=== PATIENT | female | born 1950 | race American Indian/Alaskan Native ===

== ENCOUNTER 2018-05-26 08:08 | Inpatient (IN) | payer MEDICARE, OTHER, BC | END 2018-06-04 11:43 | disposition short-term general hospital (02) | LOC: CATH 08:08 → 2RNO 05-30 13:44 → ICU 05-30 13:44 → CATH 05-27 09:05 → ICU 12:36 → 2RNO 05-27 09:05 → ICU 05-27 09:05 → 2RNO 05-30 13:44 | DX: I25.10 Atherosclerotic heart disease of native coronary artery without angina pectoris (principal); I13.2 Hypertensive heart and chronic kidney disease with heart failure and with stage 5 chronic kidney disease, or end stage renal disease; N18.6 End stage renal disease; I50.9 Heart failure, unspecified; I73.9 Peripheral vascular disease, unspecified; Z95.1 Presence of aortocoronary bypass graft ==

== ENCOUNTER 2018-06-10 16:14 | Inpatient (IN) | payer MEDICARE, BC ==
--- NOTE | 2018-06-10 17:03 | ED PDOC ---
Arrival/HPI - General Chief Complaint: Lower Extremity Problem/Injury Time Seen by Provider: 06/10/18 16:47 Historian: Patient - History of Present Illness Narrative History of Present Illness (Text): 06/10/18 17:02 67 year old female whose past medical history includes PVD on ASA/Plavix with recent right transmetatarsal amputation for gangrene/non-healing ulcer (April 2018), ESRD on HD MWF, hypertension, diabetes, dyslipidemia who presented to the emergency department from [facility] for evaluation of right toe a mputation done 2 weeks ago. Patient reports she was recently discharged and states she needs to have a vascular surgery performed by Dr. Wood due to "no blood flow on the right leg". Patient reported she became short of breath en route to the ER, but reports resolution of her dyspnea. Patient denies any fever, chills, chest pain, vomiting, diarrhea, urinary symptoms, back pain, neck pain, headache, dizziness, or any other complaints. Symptom Onset: Gradual Symptom Course: Unchanged Activities at Onset: Light Context: Home ([facility]) Past Medical History - Provider Review Nursing Documentation Reviewed: Yes - Infectious Disease Hx of Infectious Diseases: None - Cardiac Hx Hypertension: Yes - Pulmonary Hx Respiratory Disorders: No - Neurological Hx Neurological Disorder: No - HEENT Hx HEENT Disorder: Yes Hx Cataracts: Yes Other/Comment: Diabetic retinopathy with multiple procedures (Dr Bradley) - Renal Date of Last Dialysis Treatment: 05/26/18 - Endocrine/Metabolic Hx Diabetes Mellitus Type 2: Yes - Hematological/Oncological Hx Anemia: Yes - Integumentary Hx Dermatological Disorder: No - Musculoskeletal/Rheumatological Hx Falls: No - Gastrointestinal Hx Gall Bladder Disease: Yes - Genitourinary/Gynecological Hx Genitourinary Disorders: No - Psychiatric Hx Substance Use: No - Surgical History Hx Appendectomy: Yes Hx Cholecystectomy: Yes Hx Tonsillectomy: Yes - Anesthesia Hx Anesthesia: Yes Hx Anesthesia Reactions: No Hx Malignant Hyperthermia: No - Suicidal Assessment Feels Threatened In Home Enviroment: No Family/Social History - Physician Review Nursing Documentation Reviewed: Yes Family/Social History: No Known Family HX Smoking Status: Former Smoker Hx Alcohol Use: No Hx Substance Use: No Allergies/Home Meds Allergies/Adverse Reactions: Allergies No Known Allergies Allergy (Verified 05/26/18 17:31) Home Medications: Home Meds Medication Instructions Recorded Confirmed Cinacalcet [Sensipar] 30 mg PO TID 12/10/17 06/11/18 Insulin NPH Hum/Reg Insulin Hm 26 unit SQ BID #0 12/10/17 06/11/18 [Humulin 70/30 Kwikpen] Metoclopramide [Reglan] 10 mg PO Q6H PRN 12/10/17 06/11/18 Sevelamer Carbonate [Renvela] 0.8 gm PO TID 12/10/17 06/11/18 Acetaminophen [Tylenol 325mg tab] 650 mg PO Q4H PRN 05/20/18 06/11/18 Acetaminophen [Tylenol 325mg tab] 650 mg PO Q4H PRN 05/20/18 06/11/18 Amino Acid/Protein/Vit C/Zinc 30 ml PO TID 05/20/18 06/11/18 [Prosource Terry Protein Liquid] Benzocaine/Menthol [Cepacol Sore 1 each PO Q4H PRN 05/20/18 05/26/18 Throat Lozenge] Cefepime 1gm in NS 100ml [Maxipime 1 gm IVPB DAILY 05/20/18 05/26/18 1gm] Insulin Aspart, Recombinant See Protocol SQ ACHS 05/20/18 06/11/18 [Novolog] Linezolid [Zyvox] 600 mg PO Q12H 05/20/18 05/26/18 Ondansetron [Zofran Inj] 4 mg IVP DAILY PRN 05/20/18 06/11/18 Sennosides [Senna] 17.2 mg PO HS 05/20/18 06/11/18 Vitamin B Complex/Vit C/Folic 1 tab PO DAILY 05/20/18 06/11/18 [Nephro-Keila] hydrALAZINE [hydralazine 25 mg PO TID 05/20/18 06/11/18 Hydrochloride] oxyCODONE [oxyCONTIN] 10 mg PO Q12 05/26/18 06/11/18 Review of Systems - Physician Review All systems were reviewed & negative as marked: Yes - Review of Systems Constitutional: absent: Fevers, Other (chills) Respiratory: SOB Cardiovascular: absent: Chest Pain Gastrointestinal: absent: Diarrhea, Nausea, Vomiting Genitourinary Female: absent: Dysuria, Frequency, Hematuria Musculoskeletal: absent: Back Pain, Neck Pain Skin: Other (Evaluation of right LE amputated toes) Neurological: absent: Headache, Dizziness Physical Exam Vital Signs Reviewed: Yes Temperature: Afebrile Blood Pressure: Normal Pulse: Regular Respiratory Rate: Normal Appearance: Positive for: Well-Appearing, Non-Toxic, Comfortable Pain Distress: None Mental Status: Positive for: Alert and Oriented X 3 - Systems Exam Head: Present: Atraumatic, Normocephalic Respiratory/Chest: Present: Clear to Auscultation, Good Air Exchange, Other (clear breath sounds ). No: Respiratory Distress, Accessory Muscle Use Cardiovascular: Present: Regular Rate and Rhythm Abdomen: Present: Tenderness (generalized abdominal tenderness), Other (Palpable cath extending to the left side of groin) Upper Extremity: Present: Normal Inspection. No: Cyanosis, Edema Lower Extremity: Present: Other (amputated toes on the right LE. Diabetic ulcer to left heel. ). No: Edema, NORMAL PULSES (Non-palpable pulse ot right LE. Weak palpable pulse to left LE. ) Neurological: Present: GCS=15, Speech Normal Skin: Present: Warm, Dry, Normal Color. No: Rashes Psychiatric: Present: Alert, Oriented x 3 Medical Decision Making ED Course and Treatment: 06/10/18 17:02 Impression: 67 year old female presents for evaluation of right toe amputation Differential Diagnosis included but are not limited to: --Arterial Occlusion(secondary to PVD) --Osteomyelitis Plan: -- Labs -- Chest X-ray -- Duplex Bilat LE US -- Reassess and disposition Prior Visits: Notes and results from previous visits were reviewed. Progress Notes: 06/10/18 18:15 Labs reveal no leukocytosis, but shows anemia and elevated creatinine within baseline values. CXR shows no evidence of consolidation or infiltrates. CHARLES sl ightly abnormal in the RLE. Discussed case with Dr. Cox(PCP) who accepts case and requests Drs. Hickey(podiatry) & Neris(infectious disease) as consults. - Lab Interpretations Narrative Lab Interpretation (Text): 06/10/18 16:35 06/10/18 16:35 Lab Results 06/10/18 16:35: Sodium 136, Potassium 4.7, Chloride 96 L, Carbon Dioxide 29, Anion Gap 16, BUN 22 H, Creatinine 4.9 H, Est GFR ( Amer) 11, Est GFR (Non-Af Amer) 9, Random Glucose 113 H, Calcium 9.3, Magnesium 2.1, Total Bilirubin 0.5, AST 41 H D, ALT 17, Alkaline Phosphatase 113, Troponin I 0.51 H*, NT-Pro-B Natriuret Pep 30552 H, Total Protein 7.5, Albumin 3.6, Globulin 3.9, Albumin/Globulin Ratio 0.9 L 06/10/18 16:35: WBC 7.8, RBC 3.66, Hgb 9.2 L, Hct 29.7 L, MCV 81.1, MCH 25.1, MCHC 31.0, RDW 20.3 H, Plt Count 382, MPV 9.3, Neut % (Auto) 76.2 H, Lymph % (Auto) 14.8 L, [place] % (Auto) 6.1 H, Eos % (Auto) 2.6, Baso % (Auto) 0.3, Lymph # (Auto) 1.2, [place] # (Auto) 0.5, Eos # (Auto) 0.2, Baso # (Auto) 0.02, Absolute Neuts (auto) 5.98 I have reviewed the lab results: Yes - RAD Interpretation Narrative RAD Interpretations (Text): Chest X-ray Dictator : Luisana Dawson MD Report Date : 06/10/2018 17:37:59 IMPRESSION: No active pulmonary disease. [employer] Service Manager: Radiologist - Scribe Statement The provider has reviewed the documentation as recorded by the Kelsieibron Hendrickson Provider Scribe Attestation: All medical record entries made by the Kelsieibron were at my direction and personally dictated by me. I have reviewed the chart and agree that the record accurately reflects my personal performance of the history, physical exam, medical decision making, and the department course for this patient. I have also personally directed, reviewed, and agree with the discharge instructions and disposition. Disposition/Present on Arrival - Present on Arrival Any Indicators Present on Arrival: Yes History of DVT/PE: No History of Uncontrolled Diabetes: Yes Urinary Catheter: No History Surgical Site Infection Following: Orthopedic Procedures - Disposition Have Diagnosis and Disposition been Completed?: Yes Diagnosis: Foot pain, right Disposition: HOSPITALIZED Disposition Time: 18:36 Patient Plan: Admission Patient Problems: Current Active Problems Problem Status Onset Ischemic foot Acute Condition: GUARDED
--- NOTE | 2018-06-10 17:41 | RAD ---
Date of service: 06/10/2018 HISTORY: sob COMPARISON: 06/02/2018. FINDINGS: Right-sided central venous catheter graft remains at the cavoatrial junction. There is a left axillary endovascular stent graft. LUNGS: The lungs are well inflated and clear. There is multifocal linear atelectasis in the lungs. There is mild pulmonary venous congestion. No focal consolidation. PLEURA: No pleural effusions or pneumothorax. CARDIOVASCULAR: There is mild cardiomegaly. No aortic atherosclerotic calcifications present. OSSEOUS STRUCTURES: Within normal limits for the patient's age. VISUALIZED UPPER ABDOMEN: Normal. OTHER FINDINGS: None. IMPRESSION: No active pulmonary disease.
[2018-06-10 17:43] LABS: BASO # 0.02 K/mm3 (0.0-2.0); BASO % 0.3 % (0.0-3.0); EOS # 0.2 (0.0-0.7); EOS % 2.6 % (1.5-5.0); HEMOGLOBIN 9.2 g/dL (12.0-16.0); LYMPH # 1.2 (1.2-3.4); LYMPH % 14.8 % (22.0-35.0); MEAN CELL VOLUME 81.1 fl (80.0-105.0); MEAN CORPUSCULAR HEMOGLOBIN 25.1 pg (25.0-35.0); MEAN PLATELET VOLUME 9.3 fl (7.0-11.0); MONO # 0.5 (0.1-0.6); MONO % 6.1 % (1.0-6.0); RBC 3.66 10^6/uL (3.5-6.1); RED CELL DISTRIBUTION WIDTH 20.3 % (11.5-14.5); WHITE BLOOD COUNT 7.8 10^3/uL (4.5-11.0)
[2018-06-10 18:05] LABS: ALB/GLOB RATIO 0.9 (1.1-1.8); ALBUMIN 3.6 g/dL (3.0-4.8); CALCIUM 9.3 mg/dL (8.4-10.5)
[2018-06-10] MEDS ORDERED: Vancomycin 1gm in NS 250ml 1 GM/250 ML BAG IVPB STA (18:19)
[2018-06-10 18:30] LABS: TROPONIN I 0.51 ng/mL
--- NOTE | 2018-06-10 19:33 | US ---
PROCEDURE: Lower extremity CHARLES exam HISTORY: Peripheral vascular disease with pain. Recent right toe amputation PHYSICIAN(S): Kingsley Wood MD. FINDINGS: The right resting CHARLES is mildly abnormal, 0.83. The left resting CHARLES is slightly elevated and abnormal, 1.32 The brachial systolic pressures are symmetric. The low thigh PVR waveforms are pulsatile and mildly blunted. Their clinical significance is uncertain The calf PVR waveforms augment normally. No significant gradients are noted across the thighs. The right ankle and metatarsal waveforms are pulsatile and relatively normal. The left ankle and metatarsal waveforms are pulsatile but slightly decreased in amplitude compared to the right IMPRESSION: 1. Mildly abnormal right CHARLES at rest 2. The PVR waveforms are relatively normal at all levels on the right
--- NOTE | 2018-06-10 23:04 | CP.PCM.PCO ---
<Royer Satcy - Last Filed: 06/10/18 23:02> Addendum Addendum: PGY1 House Doc Paged about no ISS or accuchecks on diabetic patient. Will order for the patient. <Maggi Fajardo - Last Filed: 06/11/18 03:59> Attending/Attestation - Attestation I have personally seen and examined this patient.: No I have fully participated in the care of the patient.: No I have reviewed all pertinent clinical information: No
[2018-06-11 00:34] VITALS: BMI 41.3
--- NOTE | 2018-06-11 08:10 | CP.PCM.CON ---
History of Present Illness - History of Present Illness History of Present Illness: Podiatry Consult Note: Dr. Brian Hickey 67 year old female patient, seen and evaluated s/p 5 weks right TMA (DOS: 05/04/18) with subsequent non-healing ulceration and left heel ulceration. Patient resting comfortably in bed and in NAD. She denies any pain to her lower extremities at this time. She states that she was originally being treated at [facility] with Dr. Hickey, was discharged, and sent to [facility] yesterday from [facility]. Denies nausea/vomiting/fever/shortness of breath/chest pain. PMHx: DM, HTN, ESRD PSHx: Appendectomy, Cholecystectomy, Tonsillectomy ALL: NKDA Review of Systems - Review of Systems Review of Systems: 10 point review of systems negative except whats noted in HPI Past Patient History - Infectious Disease Hx of Infectious Diseases: None - Past Medical History & Family History Past Medical History?: Yes - Past Social History Smoking Status: Never Smoked - CARDIAC Hx Cardiac Disorders: Yes Hx Circulatory Problems: Yes (right lower ext) Hx Hypertension: Yes - PULMONARY Hx Respiratory Disorders: No - NEUROLOGICAL Hx Neurological Disorder: No - HEENT Hx HEENT Problems: No Other/Comment: wears reading glasses - cannot see small objects - RENAL Hx Chronic Kidney Disease: Yes Hx Dialysis: Yes Date of Last Dialysis Treatment: 06/10/18 Hx Kidney Stones: Yes Hx Renal Failure: Yes - ENDOCRINE/METABOLIC Hx Endocrine Disorders: Yes Hx Diabetes Mellitus Type 1: Yes - HEMATOLOGICAL/ONCOLOGICAL Hx Blood Disorders: No - INTEGUMENTARY Hx Dermatological Problems: No - MUSCULOSKELETAL/RHEUMATOLOGICAL Hx Arthritis: Yes Hx Degenerative Joint Disease: Yes Hx Falls: Yes Hx Fractures: Yes Hx Unsteady Gait: Yes - GASTROINTESTINAL Hx Gastrointestinal Disorders: No - GENITOURINARY/GYNECOLOGICAL Hx Genitourinary Disorders: No - PSYCHIATRIC Hx Psychophysiologic Disorder: No Hx Substance Use: No - SURGICAL HISTORY Hx Surgeries: Yes Hx Amputation: Yes Hx Cardiac Catheterization: Yes Hx Coronary Stent: Yes Hx Musculoskeletal Surgery: Yes - ANESTHESIA Hx Anesthesia: Yes Hx Anesthesia Reactions: No Hx Malignant Hyperthermia: No Meds Allergies/Adverse Reactions: Allergies Allergy/AdvReac Type Severity Reaction Status Date / Time No Known Allergies Allergy Verified 05/26/18 17:31 - Medications Medications: Current Medications Insulin Human Lispro (Humalog Low) 0 units SC [facility]; Protocol Physical Exam - Constitutional Appears: Non-toxic, No Acute Distress - Head Exam Head Exam: ATRAUMATIC, NORMOCEPHALIC - Extremities Exam Additional comments: B/L Lower extremity focused exam: Vasc: DP and PT pulses non-palpable B/L. Temperature gradient warm to warm from proximal to distal. Cap refill < 3 sec to all remaining digits. Mild non-pitting edema noted to dorsum of right foot Ortho: R TMA appreciated Neuro: diminished protective sensation B/L, gross sensation intact Derm: Open ulceration at the plantar aspect of the right lateral midfoot; wound base is 60% necrotic, 20% granular and 20% fibrotic. Wound measures approximately 10cm x 8cm x 3cm. Tunneling and undermining appreciated. Positive probe to bone. positive drainage noted, positive malodor. Remaining sutures in place from TMA site with mild dehiscence appreciated. Results - Vital Signs Recent Vital Signs: Last Vital Signs Temp 98.3 F 06/11/18 06:00 Pulse 60 06/11/18 06:00 Resp 16 06/11/18 06:00 BP 137/61 06/11/18 06:00 Pulse Ox 99 06/11/18 06:00 - Labs Result Diagrams: 06/10/18 16:35 06/10/18 16:35 Labs: Laboratory Results - last 24 hr 06/10/18 06/10/18 06/11/18 16:35 16:35 06:11 WBC 7.8 RBC 3.66 Hgb 9.2 L Hct 29.7 L MCV 81.1 MCH 25.1 MCHC 31.0 RDW 20.3 H Plt Count 382 MPV 9.3 Neut % (Auto) 76.2 H Lymph % (Auto) 14.8 L [place] % (Auto) 6.1 H Eos % (Auto) 2.6 Baso % (Auto) 0.3 Lymph # (Auto) 1.2 [place] # (Auto) 0.5 Eos # (Auto) 0.2 Baso # (Auto) 0.02 Absolute Neuts (auto) 5.98 Sodium 136 Potassium 4.7 Chloride 96 L Carbon Dioxide 29 Anion Gap 16 BUN 22 H Creatinine 4.9 H Est GFR ( Amer) 11 Est GFR (Non-Af Amer) 9 POC Glucose (mg/dL) 87 Random Glucose 113 H Calcium 9.3 Magnesium 2.1 Total Bilirubin 0.5 AST 41 H D ALT 17 Alkaline Phosphatase 113 Troponin I 0.51 H* NT-Pro-B Natriuret Pep 72707 H Total Protein 7.5 Albumin 3.6 Globulin 3.9 Albumin/Globulin Ratio 0.9 L Assessment & Plan - Assessment and Plan (Free Text) Assessment: 67 year old female patient s/p 5 weks right TMA (DOS: 05/04/18) with subsequent non-healing ulceration and left heel ulceration. Plan: Patient seen and evaluated with Dr. Brian Hickey Afebrile, absent leukocytosis Foot x-rays taken; pending Blood cx; pending Local wound care; R: Dakins wet to dry, DSD. L: Mepilex Plan for possible wound debridement June 16 pending vascular reccs ID consulted; reccs appreciated Vasc consulted; reccs appreciated Continue to wear multi-podus boots at all times while in bed Will continue to follow Thank you for the consult - Date & Time Date: 06/11/18 Time: 08:09
[2018-06-11] MEDS: Insulin Lispro (humaLOG) LOW Coverage SC SCH ×3 (09:15→21:51)
[2018-06-11] MEDS: Oxycodone/Acetaminophen 5/325 mg Tab PO PRN (09:59)
--- NOTE | 2018-06-11 10:11 | CP.PCM.APN ---
Subjective - Date & Time of Evaluation Date of Evaluation: 06/11/18 Time of Evaluation: 09:00 - Subjective Subjective: Pt seen and examined at bedside. C/O pain to R foot. Denies chest pain or shortness of breath. Objective - Vital Signs/Intake and Output Vital Signs (last 24 hours): Temp Pulse Resp BP Pulse Ox 98.3 F 60 16 137/60 99 06/11/18 06:00 06/11/18 10:02 06/11/18 06:00 06/11/18 10:02 06/11/18 06:00 Intake and Output: 06/11/18 06/11/18 06:59 18:59 Intake Total 120 Balance 120 - Medications Medications: Current Medications Acetaminophen (Tylenol 325mg Tab) 650 mg PO Q4H PRN PRN Reason: Fever >100.4 F Aspirin (Aspirin Chewable) 81 mg PO DAILY [facility] Last Admin: 06/11/18 09:59 Dose: 81 mg Atorvastatin Calcium (Lipitor) 40 mg PO DIN [facility] Cinacalcet (Sensipar) 30 mg PO TID [facility] Last Admin: 06/11/18 10:00 Dose: 30 mg Clopidogrel Bisulfate (Plavix) 75 mg PO DAILY [facility] Last Admin: 06/11/18 10:02 Dose: 75 mg Hydralazine HCl (Apresoline) 25 mg PO TID [facility] Last Admin: 06/11/18 10:02 Dose: 25 mg Insulin Human Lispro (Humalog Low) 0 units SC [facility]; Protocol Last Admin: 06/11/18 09:15 Dose: Not Given Losartan Potassium (Cozaar) 25 mg PO DAILY [facility] Last Admin: 06/11/18 10:00 Dose: 25 mg Metoclopramide HCl (Reglan) 10 mg PO Q6H PRN PRN Reason: Nausea/Vomiting Ondansetron HCl (Zofran Inj) 4 mg IVP DAILY PRN PRN Reason: Nausea/Vomiting Oxycodone HCl (Oxycontin Extended Release Tab) 10 mg PO Q12 [facility] Stop: 06/14/18 10:01 Oxycodone/Acetaminophen (Percocet 5/325 Mg Tab) 1 tab PO Q4H PRN PRN Reason: Pain, moderate (4-7) Stop: 06/14/18 09:30 Last Admin: 06/11/18 09:59 Dose: 1 tab Sodium Hypochlorite (Dakins Solution 0.25%) 0 ml TOP DAILY [facility] - Labs Labs: 06/10/18 16:35 06/10/18 16:35 - Constitutional Appears: No Acute Distress - Respiratory Exam Respiratory Exam: Clear to Ausculation Bilateral, NORMAL BREATHING PATTERN - Cardiovascular Exam Cardiovascular Exam: REGULAR RHYTHM, +S1, +S2 - GI/Abdominal Exam GI & Abdominal Exam: Soft, Normal Bowel Sounds - Rectal Exam Rectal Exam: Deferred - Extremities Exam Additional comments: S/P R TMA, dressing is intact, no bleeding noted. +malodor. Per Podiatry: open ulceration at the plantar aspect of the right lateral midfoot; wound base is 60% necrotic, 20% granular and 20% fibrotic. Wound measures approximately 10cm x 8cm x 3cm. Tunneling and undermining appreciated. Positive probe to bone. positive drainage noted, positive malodor. Remaining sutures in place from TMA site with mild dehiscence appreciated. Assessment and Plan - Assessment and Plan (Free Text) Assessment: Pt is a 67 y.o. female with pmhx of NSTEMI, PVD, ESRD on HD, HTN, DM, S/P R TMA (04/2018) 2/2 gangrene/nonhealing ulcer who presented in ED for evaluation of R toe amputation. Off note, she was admitted recently in [facility] and had a C.Cath which showed 99% osteal cx, 30% mid-RCA, R dominant circulation, and EF of 50-55%. She was then transferred to [facility] for poss. stent placement. While in [facility], pt had C.Cath (05/26/2018) and was found to have a lesion in L main which extends to LAD. Subsequently, she was transferred to [facility] where she had Lmain/LAD/Lcx stent with impella by Dr. Deleon. Impressions Extremity Ultrasound 06/10/18 17:02 IMPRESSION: 1. Mildly abnormal right CHARLES at rest 2. The PVR waveforms are relatively normal at all levels on the right Chest X-Ray 06/10/18 17:04 IMPRESSION: No active pulmonary disease. Plan: D/W Podiatry, planning for wound debridement on Thursday, June 16. [facility] Meds per MAR Pain management Will continue to follow
--- NOTE | 2018-06-11 11:36 | RAD ---
Date of service: 06/10/2018 PROCEDURE: Right Foot Radiographs. HISTORY: h/o amputation r/o osteo COMPARISON: 05/29/2018 FINDINGS: BONES: There has been previous amputation of the midfoot. Surgical hardware is seen in place. The findings are unchanged. There is a large soft tissue ulcer on the lateral aspect adjacent to the cuboid. There is no evidence of acute osteomyelitis. JOINTS: Normal. SOFT TISSUES: As above OTHER FINDINGS: None. IMPRESSION: No acute findings
--- NOTE | 2018-06-11 13:36 | CP.PCM.CON ---
History of Present Illness - History of Present Illness History of Present Illness: Nephrology consult note - Nitin PGY - 2 Reason for consult: HD 67 F with pertinent history of ESRD on HD, HTN, HLD, DM, and Anemia presented to [facility] with a possible foot infection. She is well known to our service for management of HD. Patient states she is having foot pain and back pain. Seems to be confused by the number of doctors walking into her room. Patient otherwise doing well and denies any new acute complaints. Review of Systems: 12 point ROS obtained and negative except as per HPI Pmhx: Anemia, arthiritis, DM, gastritis, gallbladder dz, HTN, HLD, pancreatitis, ESRD on HD Pshx: Cardiac cath All: NKDA Social: Denies any tobacco use, denies any etoh or illicit drug use Home meds: Reviewed, as per MAR Family Hx; Non-cntributory PMD: Cox Past Patient History - Infectious Disease Hx of Infectious Diseases: None - Past Medical History & Family History Past Medical History?: Yes - Past Social History Smoking Status: Never Smoked - CARDIAC Hx Cardiac Disorders: Yes Hx Circulatory Problems: Yes (right lower ext) Hx Hypertension: Yes - PULMONARY Hx Respiratory Disorders: No - NEUROLOGICAL Hx Neurological Disorder: No - HEENT Hx HEENT Problems: No Other/Comment: wears reading glasses - cannot see small objects - RENAL Hx Chronic Kidney Disease: Yes Hx Dialysis: Yes Date of Last Dialysis Treatment: 06/10/18 Hx Kidney Stones: Yes Hx Renal Failure: Yes - ENDOCRINE/METABOLIC Hx Endocrine Disorders: Yes Hx Diabetes Mellitus Type 1: Yes - HEMATOLOGICAL/ONCOLOGICAL Hx Blood Disorders: No - INTEGUMENTARY Hx Dermatological Problems: No - MUSCULOSKELETAL/RHEUMATOLOGICAL Hx Arthritis: Yes Hx Degenerative Joint Disease: Yes Hx Falls: Yes Hx Fractures: Yes Hx Unsteady Gait: Yes - GASTROINTESTINAL Hx Gastrointestinal Disorders: No - GENITOURINARY/GYNECOLOGICAL Hx Genitourinary Disorders: No - PSYCHIATRIC Hx Psychophysiologic Disorder: No Hx Substance Use: No - SURGICAL HISTORY Hx Surgeries: Yes Hx Amputation: Yes Hx Cardiac Catheterization: Yes Hx Coronary Stent: Yes Hx Musculoskeletal Surgery: Yes - ANESTHESIA Hx Anesthesia: Yes Hx Anesthesia Reactions: No Hx Malignant Hyperthermia: No Meds Allergies/Adverse Reactions: Allergies Allergy/AdvReac Type Severity Reaction Status Date / Time No Known Allergies Allergy Verified 05/26/18 17:31 - Medications Medications: Current Medications Acetaminophen (Tylenol 325mg Tab) 650 mg PO Q4H PRN PRN Reason: Fever >100.4 F Aspirin (Aspirin Chewable) 81 mg PO DAILY [facility] Last Admin: 06/11/18 09:59 Dose: 81 mg Atorvastatin Calcium (Lipitor) 40 mg PO DIN [facility] Cinacalcet (Sensipar) 30 mg PO TID [facility] Last Admin: 06/11/18 10:00 Dose: 30 mg Clopidogrel Bisulfate (Plavix) 75 mg PO DAILY [facility] Last Admin: 06/11/18 10:02 Dose: 75 mg Hydralazine HCl (Apresoline) 25 mg PO TID [facility] Last Admin: 06/11/18 10:02 Dose: 25 mg Insulin Human Lispro (Humalog Low) 0 units SC [facility]; Protocol Last Admin: 06/11/18 12:48 Dose: Not Given Losartan Potassium (Cozaar) 25 mg PO DAILY [facility] Last Admin: 06/11/18 10:00 Dose: 25 mg Metoclopramide HCl (Reglan) 5 mg PO Q6H PRN PRN Reason: Nausea/Vomiting Metoprolol Tartrate (Lopressor) 25 mg PO BID [facility] Last Admin: 06/11/18 12:53 Dose: 25 mg Ondansetron HCl (Zofran Inj) 4 mg IVP DAILY PRN PRN Reason: Nausea/Vomiting Oxycodone HCl (Oxycontin Extended Release Tab) 10 mg PO Q12 [facility] Stop: 06/14/18 10:01 Oxycodone/Acetaminophen (Percocet 5/325 Mg Tab) 1 tab PO Q4H PRN PRN Reason: Pain, moderate (4-7) Stop: 06/14/18 09:30 Last Admin: 06/11/18 09:59 Dose: 1 tab Sodium Hypochlorite (Dakins Solution 0.25%) 0 ml TOP DAILY [facility] Physical Exam - Constitutional Appears: Well - Head Exam Head Exam: ATRAUMATIC, NORMAL INSPECTION, NORMOCEPHALIC - Eye Exam Eye Exam: EOMI, Normal appearance, PERRL Pupil Exam: NORMAL ACCOMODATION, PERRL - ENT Exam ENT Exam: Mucous Membranes Moist, Normal Exam - Neck Exam Neck exam: Positive for: Normal Inspection - Respiratory Exam Respiratory Exam: Clear to Auscultation Bilateral, NORMAL BREATHING PATTERN - Cardiovascular Exam Cardiovascular Exam: REGULAR RHYTHM - GI/Abdominal Exam GI & Abdominal Exam: Normal Bowel Sounds, Soft. absent: Tenderness - Extremities Exam Extremities exam: Positive for: normal inspection - Back Exam Back exam: NORMAL INSPECTION - Neurological Exam Neurological exam: Alert, CN II-XII Intact, Normal Gait, Oriented x3, Reflexes Normal - Psychiatric Exam Psychiatric exam: Normal Affect, Normal Mood - Skin Skin Exam: Dry, Intact, Normal Color, Warm Results - Vital Signs Recent Vital Signs: Last Vital Signs Temp 98.3 F 06/11/18 06:00 Pulse 72 06/11/18 12:53 Resp 16 06/11/18 06:00 BP 137/61 06/11/18 12:53 Pulse Ox 99 06/11/18 06:00 - Labs Result Diagrams: 06/10/18 16:35 06/10/18 16:35 Labs: Laboratory Results - last 24 hr 06/10/18 06/10/18 06/11/18 16:35 16:35 06:11 WBC 7.8 RBC 3.66 Hgb 9.2 L Hct 29.7 L MCV 81.1 MCH 25.1 MCHC 31.0 RDW 20.3 H Plt Count 382 MPV 9.3 Neut % (Auto) 76.2 H Lymph % (Auto) 14.8 L Teller % (Auto) 6.1 H Eos % (Auto) 2.6 Baso % (Auto) 0.3 Lymph # (Auto) 1.2 Teller # (Auto) 0.5 Eos # (Auto) 0.2 Baso # (Auto) 0.02 Absolute Neuts (auto) 5.98 Sodium 136 Potassium 4.7 Chloride 96 L Carbon Dioxide 29 Anion Gap 16 BUN 22 H Creatinine 4.9 H Est GFR ( Amer) 11 Est GFR (Non-Af Amer) 9 POC Glucose (mg/dL) 87 Random Glucose 113 H Calcium 9.3 Magnesium 2.1 Total Bilirubin 0.5 AST 41 H D ALT 17 Alkaline Phosphatase 113 Troponin I 0.51 H* NT-Pro-B Natriuret Pep 82122 H Total Protein 7.5 Albumin 3.6 Globulin 3.9 Albumin/Globulin Ratio 0.9 L 06/11/18 11:20 WBC RBC Hgb Hct MCV MCH MCHC RDW Plt Count MPV Neut % (Auto) Lymph % (Auto) Teller % (Auto) Eos % (Auto) Baso % (Auto) Lymph # (Auto) Teller # (Auto) Eos # (Auto) Baso # (Auto) Absolute Neuts (auto) Sodium Potassium Chloride Carbon Dioxide Anion Gap BUN Creatinine Est GFR ( Amer) Est GFR (Non-Af Amer) POC Glucose (mg/dL) 156 H Random Glucose Calcium Magnesium Total Bilirubin AST ALT Alkaline Phosphatase Troponin I NT-Pro-B Natriuret Pep Total Protein Albumin Globulin Albumin/Globulin Ratio Assessment & Plan - Assessment and Plan (Free Text) Assessment: Assessment and Plan (1) ESRD (end stage renal disease) on dialysis Assessment & Plan: Stable volume and electrolyte status, chronic b/l LE edema - HD today as per MWF schedule - Continue Nephro-Keila, Sevelamer, Sensipar Status: Chronic (2) Severe anemia Assessment & Plan: Hgb 9.2 today, below goal for CKD (10-11) - Continue to dose Epo/Aranesp on HD Status: Chronic (3) CHF (congestive heart failure) Assessment & Plan: Diastolic - Continue with HD to offload RV Status: Chronic (4) Hypertensive CKD, ESRD on dialysis Assessment & Plan: Controlled - Continue Cozaar and Hydralazine Status: Chronic
[2018-06-11] MEDS: Dakin's Topical 0.25%-Half Strength (480 ml) TOP SCH (14:16)
--- NOTE | 2018-06-11 16:35 | CP.PCM.PN ---
<Olegario Massey - Last Filed: 06/11/18 16:32> Subjective - Date & Time of Evaluation Date of Evaluation: 06/11/18 Time of Evaluation: 16:32 - Subjective Subjective: Pt seen and examined today during her dialysis session. Pt has no new complaints at this time. Objective - Vital Signs/Intake and Output Vital Signs (last 24 hours): Temp Pulse Resp BP Pulse Ox 98.3 F 72 16 137/61 99 06/11/18 06:00 06/11/18 12:53 06/11/18 06:00 06/11/18 12:53 06/11/18 06:00 Intake and Output: 06/11/18 06/11/18 06:59 18:59 Intake Total 120 480 Balance 120 480 - Medications Medications: Current Medications Acetaminophen (Tylenol 325mg Tab) 650 mg PO Q4H PRN PRN Reason: Fever >100.4 F Last Admin: 06/11/18 14:18 Dose: 650 mg Aspirin (Aspirin Chewable) 81 mg PO DAILY [facility] Last Admin: 06/11/18 09:59 Dose: 81 mg Atorvastatin Calcium (Lipitor) 40 mg PO DIN [facility] Cinacalcet (Sensipar) 30 mg PO TID [facility] Last Admin: 06/11/18 14:16 Dose: Not Given Clopidogrel Bisulfate (Plavix) 75 mg PO DAILY [facility] Last Admin: 06/11/18 10:02 Dose: 75 mg Hydralazine HCl (Apresoline) 25 mg PO TID [facility] Last Admin: 06/11/18 14:15 Dose: Not Given Insulin Human Lispro (Humalog Low) 0 units SC [facility]; Protocol Last Admin: 06/11/18 12:48 Dose: Not Given Losartan Potassium (Cozaar) 25 mg PO DAILY [facility] Last Admin: 06/11/18 10:00 Dose: 25 mg Metoclopramide HCl (Reglan) 5 mg PO Q6H PRN PRN Reason: Nausea/Vomiting Metoprolol Tartrate (Lopressor) 25 mg PO BID [facility] Last Admin: 06/11/18 12:53 Dose: 25 mg Ondansetron HCl (Zofran Inj) 4 mg IVP DAILY PRN PRN Reason: Nausea/Vomiting Oxycodone HCl (Oxycontin Extended Release Tab) 10 mg PO Q12 [facility] Stop: 06/14/18 10:01 Oxycodone/Acetaminophen (Percocet 5/325 Mg Tab) 1 tab PO Q4H PRN PRN Reason: Pain, moderate (4-7) Stop: 06/14/18 09:30 Last Admin: 06/11/18 09:59 Dose: 1 tab Sodium Hypochlorite (Dakins Solution 0.25%) 0 ml TOP DAILY [facility] Last Admin: 06/11/18 14:16 Dose: Not Given - Labs Labs: 06/10/18 16:35 06/10/18 16:35 - Constitutional Appears: No Acute Distress - Head Exam Head Exam: ATRAUMATIC, NORMOCEPHALIC - Eye Exam Eye Exam: EOMI - ENT Exam ENT Exam: Mucous Membranes Moist - Neck Exam Neck Exam: Full ROM - Respiratory Exam Respiratory Exam: Clear to Ausculation Bilateral, NORMAL BREATHING PATTERN. absent: Respiratory Distress - Cardiovascular Exam Cardiovascular Exam: RRR, +S1, +S2. absent: Diastolic murmur, Murmur - GI/Abdominal Exam GI & Abdominal Exam: Soft, Normal Bowel Sounds. absent: Tenderness - Extremities Exam Extremities Exam: Full ROM, Pedal Edema. absent: Calf Tenderness - Neurological Exam Neurological Exam: Alert, Awake, Oriented x3 - Psychiatric Exam Psychiatric exam: Normal Affect, Normal Mood - Skin Skin Exam: Dry, Intact, Warm Assessment and Plan - Assessment and Plan (Free Text) Assessment: (1) PVD (peripheral vascular disease) (2) Hypertensive CKD, ESRD on dialysis Status: Chronic (3) Infected wound Status: Acute (5) CHF (congestive heart failure) Status: Chronic Plan: PVD CAD HA1C 6.1 ECHO (05/21/18) EF 60-65%, diastolic dysfunction Cath 05/26/18 [facility], lesion found in the Left main which extends into the LAD. FFR 0.75 Pt scheduled to have peripheral angio of the LE Medications ASA Lipitor Heparin 25,000 hydralazine cozaar Metoprolol Pt seen, examined, assessment and plan disussed [facility] Dr Pancho Massey PGY1, Internal Medicine Resident <Andrez Deleon - Last Filed: 06/11/18 20:10> Objective - Vital Signs/Intake and Output Vital Signs (last 24 hours): Temp Pulse Resp BP Pulse Ox 97.7 F 65 18 145/61 99 06/11/18 19:32 06/11/18 19:47 06/11/18 19:32 06/11/18 19:47 06/11/18 06:00 Intake and Output: 06/11/18 06/12/18 18:59 06:59 Intake Total 480 Balance 480 - Medications Medications: Current Medications Acetaminophen (Tylenol 325mg Tab) 650 mg PO Q4H PRN PRN Reason: Fever >100.4 F Last Admin: 06/11/18 14:18 Dose: 650 mg Aspirin (Aspirin Chewable) 81 mg PO DAILY [facility] Last Admin: 06/11/18 09:59 Dose: 81 mg Cinacalcet (Sensipar) 30 mg PO TID [facility] Last Admin: 06/11/18 14:16 Dose: Not Given Clopidogrel Bisulfate (Plavix) 75 mg PO DAILY [facility] Last Admin: 06/11/18 10:02 Dose: 75 mg Hydralazine HCl (Apresoline) 25 mg PO TID [facility] Last Admin: 06/11/18 14:15 Dose: Not Given Daptomycin 640 mg/ Sodium (Chloride) 100 mls @ 200 mls/hr IV Q48H [facility]; Protocol Stop: 06/18/18 18:31 Meropenem/Sodium Chloride (Merrem Iv 500 Mg/Ns 50 Ml) 500 mg in 50 mls @ 100 mls/hr IVPB Q12 [facility]; Protocol Stop: 06/18/18 22:01 Insulin Human Lispro (Humalog Low) 0 units SC ACHS [facility]; Protocol Last Admin: 06/11/18 12:48 Dose: Not Given Losartan Potassium (Cozaar) 25 mg PO DAILY [facility] Last Admin: 06/11/18 10:00 Dose: 25 mg Metoclopramide HCl (Reglan) 5 mg PO Q6H PRN PRN Reason: Nausea/Vomiting Metoprolol Tartrate (Lopressor) 25 mg PO BID [facility] Last Admin: 06/11/18 12:53 Dose: 25 mg Ondansetron HCl (Zofran Inj) 4 mg IVP DAILY PRN PRN Reason: Nausea/Vomiting Oxycodone HCl (Oxycontin Extended Release Tab) 10 mg PO Q12 [facility] Stop: 06/14/18 10:01 Oxycodone/Acetaminophen (Percocet 5/325 Mg Tab) 1 tab PO Q4H PRN PRN Reason: Pain, moderate (4-7) Stop: 06/14/18 09:30 Last Admin: 06/11/18 09:59 Dose: 1 tab Sodium Hypochlorite (Dakins Solution 0.25%) 0 ml TOP DAILY [facility] Last Admin: 06/11/18 14:16 Dose: Not Given - Labs Labs: 06/10/18 16:35 06/10/18 16:35 Attending/Attestation - Attestation I have personally seen and examined this patient.: Yes I have fully participated in the care of the patient.: Yes I have reviewed all pertinent clinical information, including history, physical exam and plan: Yes Notes (Text): 06/11/18 20:08 Maritza is a 67-year-old female who presented to [facility] 2 weeks ago with non-ST elevation DE she was transferred over to [facility] where he underwent a cardiac catheterization showing high-grade left distal left main ostial LAD and ostial left circumflex disease she was transferred over to [place] and underwent AAA [place] assisted left main left circumflex PCI in a modified T stenting technique she was subsequently transferred to the rehab where she was evaluated by Dr. Cox and felt to have nonhealing wound of the right lower extremity amputation site patient subsequently was sent back to [place]. She will be scheduled for a peripheral angiogram for potential below the knee intervention depending on the angiographic findings. I would continue the patient on dual antiplatelet therapy continue the patient on beta-blockers arms continue patient on blood pressure medications recommend to add statins thank you Dr. Cox for letting me participate in the care of your patient.
[2018-06-11] MEDS ORDERED: Verapamil 2 ML ONE ×2 (16:45→18:01)
[2018-06-11] MEDS ORDERED: Lidocaine PF 2% (5 ml) Inj (For Cardiac Arrhy) ONE (16:45)
[2018-06-11] MEDS ORDERED: Nitroglycerin 50mg in D5W 50 MG/250 ML BOTTLE IV ONE (16:46)
[2018-06-11] MEDS ORDERED: Iodixanol 320 MG/ML 200 ML BOTTLE IV ONE (16:46)
[2018-06-11] MEDS ORDERED: Iodixanol 320 MG/ML 100 ML BOTTLE IV ONE ×2 (16:46→18:37)
[2018-06-11] MEDS ORDERED: Heparin 2,000 ML IV ONE (16:47)
[2018-06-11] MEDS ORDERED: Midazolam 2 MG/2 ML VIAL ONE ×2 (17:23→17:31)
--- NOTE | 2018-06-11 18:41 | CARD ---
APPROVED REPORT Date of service: 06/10/2018 EKG Measurement Heart [id number] P43 [id number] <Conclusion> Normal sinus rhythm Left axis deviation Abnormal ECG
[2018-06-11] MEDS ORDERED: Oxycodone/Acetaminophen 5/325 mg Tab PO ONE (19:47)
[2018-06-11] MEDS ORDERED: Oxycodone/Acetaminophen 5/325 mg Tab ONE (19:48)
--- NOTE | 2018-06-11 20:10 | HP ---
DATE OF EXAM: 06/11/2018 HISTORY OF PRESENT ILLNESS: The patient is a 67-year-old female, who was at [facility]. She was seen by the micro computer specialist there, Dr. Hickey, who looked at the right foot and felt that it needed to have surgery to remove the exposed bone. He feels also that the circulation in the leg might need a stent placement. He also feels that there might be more surgery to be done on the foot. He felt that the vascular doctor that was seen was not getting to her on an efficient basis. He did not want her to lose the foot, so I brought her over to [place] for Dr. Kingsley Wood to take a look at it and see if he could stent the distal part of the leg if it needs to be done. Also, Dr. Brian Hickey will do some surgery on the foot and take out the bone that is exposed. She has been through a transmetatarsal amputation and right toe amputation. We are trying to save the foot, so we will not do a BKA and that is what we are trying to do. She has hypertension, cataracts, and diabetic retinopathy. No substance abuse. She had an appendectomy, cholecystectomy, tonsillectomy, right transmetatarsal, now she has exposed bone in the foot. FAMILY HISTORY: Unknown. SOCIAL HISTORY: Former smoker. No alcohol. No drugs. ALLERGIES: NO KNOWN DRUG ALLERGIES. MEDICATIONS: She is on Sensipar, insulin, Reglan, Renvela, Prosource, Cepacol, Novolog, Zyvox, Zofran, senna, hydralazine, and OxyContin. She is also on end-stage dialysis. REVIEW OF SYSTEMS: No acute vision or hearing changes. No chest pain or shortness of breath. No abdominal pain. She has right foot pain. She is upset about the right foot oozing and the open spot on it. It is not healing well as far as she is concerned. She is very anxious about this whole situation. Upset that nothing has been done efficiently and that is her biggest complaint to me. PHYSICAL EXAMINATION: GENERAL: Alert and oriented x3. VITAL SIGNS: She has a 98.3 temperature, 60 pulse, 137/61 blood pressure, 16 respiratory rate, and 99% O2 saturation on oxygen. HEENT: Head is atraumatic and normocephalic. Throat is moist. NECK: Supple. Extraocular muscles intact. HEART: Regular rate. LUNGS: Decreased breath sounds, clear to auscultation. ABDOMEN: Soft and nontender, positive bowel sounds. No guarding. No rebound. No CVA tenderness. EXTREMITIES: She has a right transmetatarsal amputation with ulcer to the heel, toes are amputated. NEUROLOGIC: GCS is 15. Cranial nerves II through XII grossly intact. SKIN: For the most part intact except for the right foot issues. LYMPHS: Thyroid is midline. No palpable appreciable lymphadenopathy. LABORATORY DATA: She has a tests done. Chest x-ray with no acute disease. Extremity ultrasound showed mildly abnormal right CHARLES at rest. She had consult with vascular procedure, Dr. Kingsley Wood; Dr. Hickey, Podiatry; Infectious Disease, antibiotics. She also has 7.8 white count, 9.2 hemoglobin, 29.7 hematocrit, with a 382 platelets; 136 sodium, potassium 4.7, BUN 22, creatinine 4.9. She is on dialysis. I called in a renal doctor, sugar is 87, calcium 9.3, magnesium 2.1, total bilirubin is 0.5, AST is 41, ALT is 17, alk phos 113, troponin I is high at 0.51, and BNP is high at 50,600. I called in Cardiology, Dr. Powers. IMPRESSION AND PLAN: She is here for right foot exposed bone, on the intravenous antibiotics by Infectious Disease. Hopefully procedure by Dr. Kingsley Wood and a surgery by Dr. Hickey. Nir Cox DO
--- NOTE | 2018-06-11 20:23 | VASCULAR ---
Date of service: 06/11/2018 PROCEDURE: 1. Abdominal aortogram and selective right lower extremity arteriogram with antegrade and retrograde approaches. HISTORY: Severe peripheral vascular disease. Previous Rt TMA. Large nonhealing ischemic ulceration right foot. Recent coronary intervention. End-stage renal disease PHYSICIAN(S): Kingsley Wood M.D. TECHNIQUE: The relative risks and indications of the procedure were explained to the patient and her daughter and consent obtained. The patient was placed supine on the arteriogram table and the right groin prepped and draped in the usual sterile fashion. Conscious sedation and monitoring were provided throughout the procedure by a nurse. Under ultrasound guidance, the left common femoral artery was punctured with a micropuncture set. A 5 [place] sheath was placed. Through the sheath and over guidewire a 5 [place] flush catheter was placed the distal abdominal aorta and an RPO DSA abdominal pelvic arteriogram performed. The catheter was advanced over bifurcation placed in the right common femoral artery. Overlapping right lower extremity DSA arteriograms were obtained. A 6 [place] 65 cm destination sheath was placed in the mid to distal right SFA. Heparin and nitroglycerin were given. Multiple attempts at crossing the heavily calcified diffusely diseased right anterior tibial artery in an antegrade direction were unsuccessful. Numerous 0.035, 0.018, and 0.014 guidewires were attempted. Under ultrasound guidance, the distal right anterior tibial arteries puncture micropuncture set. Vasodilators were given. Attempts at crossing the anterior tibial artery occlusion in a retrograde direction with various guidewires was also unsuccessful. A Zandra cat crossing catheter was attempted. The occluded origin of the right peroneal artery was engaged and once again guidewires were unsuccessful at crossing the occlusion. The sheath was removed from the left groin with a Perclose device and a D-stat was utilized at the distal right anterior tibial puncture site. The patient tolerated the procedure well FINDINGS: The terminal abdominal aorta is patent and smoothly calcified. Aortic bifurcation is patent. The common external iliac arteries are widely patent without radiographically significant stenosis. The internal iliac arteries are patent bilaterally. The right common femoral artery is patent with minimal disease. The right profunda femoral artery is patent. The right SFA is smoothly calcified widely patent. The recent right SFA intervention is widely patent without evidence of restenosis or thrombus. There is a proximal take-off to the right posterior tibial artery. The right posterior tibial artery is the predominant supply to the right foot. It is large and continuous. There is severe right pedal occlusive disease. The plantar arch is incomplete. The dorsalis pedis artery occludes proximally. The right anterior tibial and peroneal arteries occluded shortly from its origin. There is multi focal disease in the proximal to mid right anterior tibial artery. There is reconstitution of the distal right anterior tibial artery which is a normal sized vessel. There is also reconstitution of the mid to distal right peroneal artery IMPRESSION: 1.Severe right tibial and pedal occlusive disease. 2. Unsuccessful attempts at crossing the right anterior tibial and peroneal occlusions from a an antegrade and retrograde approach 3. Continuous 1 vessel runoff via a large right posterior tibial artery.
[2018-06-11] MEDS: oxyCODONE 10 mg ER Tab (oxyCONTIN) PO SCH (21:58)
[2018-06-11] MEDS: MEROPENEM 500 MG in NS 500 MG/50 ML BAG IVPB SCH (22:14)
--- NOTE | 2018-06-12 00:26 | CON ---
DATE: 06/11/2018 LOCATION: The patient is seen earlier today in 561, bed 1. CHIEF COMPLAINT: She is here to have vascular evaluation of her foot by Dr. Kingsley Wood. HISTORY OF PRESENT ILLNESS: This is a 67-year-old female with morbid obesity, BMI of 41; end-stage renal disease on hemodialysis Thursday, Thursday, Thursday; cataract; coronary artery disease; renal disease; hypertension; and diabetes mellitus. The patient had recently right transmetatarsal amputation and the patient also was transferred to [facility] for cardiac evaluation. The patient is now here in the hospital for further vascular workup. PAST MEDICAL HISTORY: Significant for; diabetes, hypertension, renal disease, coronary artery disease, cataract, morbid obesity with BMI of 41, and end-stage renal disease on hemodialysis Thursday, Thursday, Thursday. PAST SURGICAL HISTORY: Recent transmetatarsal amputation. The patient also with appendectomy, cholecystectomy, and cardiac catheterization, tonsillectomy, and hysterectomy. ALLERGIES: THE PATIENT HAS NO KNOWN ALLERGIES. MEDICATIONS: Reviewed. REVIEW OF SYSTEMS: A 12-point review of systems is performed. PHYSICAL EXAMINATION: VITAL SIGNS: Temperature 98, blood pressure 130/60, respiratory rate 16, and heart rate 60. HEENT: Unremarkable. NECK: Supple. LUNGS: Decreased breath sounds. HEART: Normal S1 and S2. ABDOMEN: Soft and nontender. LABORATORY DATA: Reveals a white count of 7.8, hemoglobin 9. BUN of 22, creatinine of 4.9. Troponin 0.51. BNP noted. Dr. Amber Benitez's consultation is reviewed. On the right side, the patient had nonhealing ulcer and left heel ulceration and was treated by Dr. Lopez at [facility] and admitted. The right TMA evaluation by her on examination is noted. There is an open ulcer. Care management progress note is reviewed. The patient had cardiac cath in [place] by Dr. Deleon and stent placement. ASSESSMENT: A 57-year-old female, who recently had transmetatarsal amputation and diabetes, renal failure on dialysis with chronic ulcer, was on IV antibiotics and made adjustments accordingly. The patient since the last admission has been receiving daptomycin and meropenem. The patient had enterococcus, Citrobacter and pseudomonas from the wound and with acute osteomyelitis was treated with 4 weeks of antibiotics. We will follow with you. We will restart daptomycin and meropenem at this time. We will make further recommendations. Haresh Cordon MD
[2018-06-12] MEDS: Oxycodone/Acetaminophen 5/325 mg Tab PO PRN ×3 (03:28→19:00)
--- NOTE | 2018-06-12 03:45 | CON ---
DATE: 06/11/2018 CARDIOLOGY CONSULTATION REASON FOR CONSULTATION: Coronary artery disease. 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 The patient was admitted because of right foot pain, and she was expecting some procedure by Dr. Hickey, the Salvage Grinder, and Dr. Wood, the Interventional Radiologist. The patient does not recall the details. SOCIAL HISTORY: The patient is nonsmoker, nondrinker. 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 MEDICATIONS: Hydralazine 25 mg t.i.d., aspirin 81 mg once a day, Cozaar 25 mg once a day, Lipitor 40 mg once a day, Plavix 75 mg once a day, and Zofran 4 mg intravenously daily. REVIEW OF SYSTEMS: No nausea or vomiting. No fever or chills. No dizziness or syncope. No retrosternal chest pain at this time. PAST MEDICAL HISTORY: Hypertension; diabetes mellitus; end-stage renal disease, on hemodialysis; coronary artery disease; peripheral vascular disease, status post transmetatarsal right foot amputation in April of 2018. PHYSICAL EXAMINATION: GENERAL: The patient is an elderly female who does not appear to be in acute distress. VITAL SIGNS: Temperature 98.3, heart rate 60, respiration 20, and blood pressure 133/87. HEENT: Pale conjunctivae. CHEST: Clear. HEART: S1 and S2, regular and distant. ABDOMEN: Soft. EXTREMITIES: 2+ pitting edema. Dressing is applied to the right foot where she underwent the transmetatarsal amputation. LABORATORY DATA: Hemoglobin and hematocrit 9.2 and 29.7, white count and platelet count are within normal limits. SMA-7: Sodium 136, potassium 4.7, chloride 96, CO2 of 29, glucose 115, BUN 22, creatinine 4.9. ProBNP is 50,600. EKG revealed sinus rhythm at rate of 68. The computer misread was atrial flutter. The echocardiographic study performed last month revealed normal ejection fraction, [id number] pulmonary hypertension. ASSESSMENT: 1. Coronary artery disease with history of recent coronary stenting at [facility]. 2. Peripheral vascular disease, status post right transmetatarsal amputation. 3. Borderline troponin elevation, rule out non-ST elevation myocardial infarction. 4. End-stage renal disease, on hemodialysis for the past 13 years. 5. Mild anemia. 6. [id number] pulmonary hypertension. RECOMMENDATIONS: Continue current aspirin 81 mg once a day, Plavix 75 mg once a day, Lipitor 40 mg once a day, Cozaar 25 mg once a day. Start Lopressor 25 mg twice a day. Transfer the patient to telemetry. Obtain the PCI report from [facility]. Doe Camargo MD
[2018-06-12] MEDS: Dakin's Topical 0.25%-Half Strength (480 ml) TOP SCH (07:30)
[2018-06-12] MEDS: Insulin Lispro (humaLOG) LOW Coverage SC SCH ×4 (08:21→22:00)
[2018-06-12 08:34] LABS: ALB/GLOB RATIO 0.8 (1.1-1.8)
--- NOTE | 2018-06-12 08:38 | CP.PCM.PN ---
Subjective - Date & Time of Evaluation Date of Evaluation: 06/12/18 Time of Evaluation: 08:37 - Subjective Subjective: Podiatry progress Note: Dr. Brian Hickey 67 year old female patient, seen and evaluated s/p 5 weks right TMA (DOS: 05/04/18) with subsequent non-healing ulceration and left heel ulceration. Patient resting comfortably in bed and in NAD. She states she was unable to sleep due to burning sensation in her legs. denies acute overnight events. Denies nausea/vomiting/fever/shortness of breath/chest pain. Objective - Vital Signs/Intake and Output Vital Signs (last 24 hours): Temp Pulse Resp BP Pulse Ox 100.2 F H 65 20 129/58 L 99 06/12/18 06:18 06/12/18 03:00 06/12/18 03:00 06/12/18 03:00 06/12/18 03:00 Intake and Output: 06/12/18 06/12/18 06:59 18:59 Intake Total 200 Balance 200 - Medications Medications: Current Medications Acetaminophen (Tylenol 325mg Tab) 650 mg PO Q4H PRN PRN Reason: Fever >100.4 F Last Admin: 06/12/18 06:18 Dose: 650 mg Aspirin (Aspirin Chewable) 81 mg PO DAILY [facility] Last Admin: 06/11/18 09:59 Dose: 81 mg Cinacalcet (Sensipar) 30 mg PO TID [facility] Last Admin: 06/11/18 22:15 Dose: 30 mg Clopidogrel Bisulfate (Plavix) 75 mg PO DAILY [facility] Last Admin: 06/11/18 10:02 Dose: 75 mg Hydralazine HCl (Apresoline) 25 mg PO TID [facility] Last Admin: 06/11/18 22:16 Dose: 25 mg Daptomycin 640 mg/ Sodium (Chloride) 100 mls @ 200 mls/hr IV Q48H [facility]; Protocol Stop: 06/18/18 18:31 Last Admin: 06/11/18 22:14 Dose: 200 mls/hr Meropenem/Sodium Chloride (Merrem Iv 500 Mg/Ns 50 Ml) 500 mg in 50 mls @ 100 mls/hr IVPB Q12 [facility]; Protocol Stop: 06/18/18 22:01 Last Admin: 06/11/18 22:14 Dose: 100 mls/hr Insulin Human Lispro (Humalog Low) 0 units SC ACHS [facility]; Protocol Last Admin: 06/12/18 08:21 Dose: Not Given Losartan Potassium (Cozaar) 25 mg PO DAILY [facility] Last Admin: 06/11/18 10:00 Dose: 25 mg Metoclopramide HCl (Reglan) 5 mg PO Q6H PRN PRN Reason: Nausea/Vomiting Metoprolol Tartrate (Lopressor) 25 mg PO BID [facility] Last Admin: 06/11/18 22:15 Dose: 25 mg Ondansetron HCl (Zofran Inj) 4 mg IVP DAILY PRN PRN Reason: Nausea/Vomiting Last Admin: 06/12/18 06:30 Dose: 4 mg Oxycodone HCl (Oxycontin Extended Release Tab) 10 mg PO Q12 [facility] Stop: 06/14/18 10:01 Last Admin: 06/11/18 21:58 Dose: Not Given Oxycodone/Acetaminophen (Percocet 5/325 Mg Tab) 1 tab PO Q4H PRN PRN Reason: Pain, moderate (4-7) Stop: 06/14/18 09:30 Last Admin: 06/12/18 07:07 Dose: 1 tab Sodium Hypochlorite (Dakins Solution 0.25%) 0 ml TOP DAILY [facility] Last Admin: 06/11/18 14:16 Dose: Not Given - Labs Labs: 06/10/18 16:35 06/12/18 08:10 - Constitutional Appears: Well, Non-toxic, No Acute Distress - Head Exam Head Exam: ATRAUMATIC, NORMOCEPHALIC - Eye Exam Eye Exam: Normal appearance Pupil Exam: NORMAL ACCOMODATION - ENT Exam ENT Exam: Mucous Membranes Moist - Extremities Exam Additional comments: B/L Lower extremity focused exam: Vasc: DP and PT pulses non-palpable B/L. Temperature gradient warm to warm from proximal to distal. Cap refill < 3 sec to all remaining digits. Mild non-pitting edema noted to dorsum of right foot Ortho: R TMA appreciated Neuro: diminished protective sensation B/L, gross sensation intact Derm: Open ulceration at the plantar aspect of the right lateral midfoot; wound base is 60% necrotic, 20% granular and 20% fibrotic. Wound measures approximately 10cm x 8cm x 3cm. Tunneling and undermining appreciated. Positive probe to bone. positive drainage noted, positive malodor. Remaining sutures in place from TMA site with mild dehiscence appreciated. - Neurological Exam Neurological Exam: Alert, Awake, Oriented x3 - Psychiatric Exam Psychiatric exam: Normal Affect Assessment and Plan - Assessment and Plan (Free Text) Assessment: 67 year old female patient s/p 5 weks right TMA (DOS: 05/04/18) with subsequent non-healing ulceration and left heel ulceration. Plan: Patient seen and evaluated with Dr. Brian Hickey Afebrile, absent leukocytosis Foot x-rays taken; no acute osteo, large soft tissue defect Blood cx;no growth fter 24 hours Local wound care; R: Dakins wet to dry, DSD. L: Mepilex Plan for possible wound debridement Thursday, June 16 pending vascular reccs ID consulted; reccs appreciated Vasc consulted; reccs appreciated- to be scheduled for peripheral angio for below knee intervention Continue to wear multi-podus boots at all times while in bed Will continue to follow
[2018-06-12 08:45] LABS: HEMOGLOBIN 7.9 g/dL (12.0-16.0); MEAN CELL VOLUME 80.7 fl (80.0-105.0); MEAN CORPUSCULAR HEMOGLOBIN 24.2 pg (25.0-35.0); MEAN PLATELET VOLUME 9.1 fl (7.0-11.0); RBC 3.26 10^6/uL (3.5-6.1); RED CELL DISTRIBUTION WIDTH 20.2 % (11.5-14.5); WHITE BLOOD COUNT 6.4 10^3/uL (4.5-11.0)
--- NOTE | 2018-06-12 09:12 | PN ---
DATE: 06/12/2018 SUBJECTIVE: The patient is in bed in no acute distress. The patient has a fever this morning, low grade, nontoxic. PHYSICAL EXAMINATION VITAL SIGNS: On exam, temperature is 100.2, blood pressure is 115/70, respiratory 20 and heart rate of 65. HEENT: Unremarkable. NECK: Supple. LUNGS: Have decreased breath sounds. HEART: Normal S1 and S2. ABDOMEN: Soft and nontender. LABORATORY EXAMINATION: Reveals a white count of 7.8 and hemoglobin of 9. Creatinine is 4.9. Microbiology reveals the blood cultures are negative. Currently the patient is on daptomycin and meropenem. ASSESSMENT AND PLAN: This is a 67-year-old with super morbid obesity status post recent transmetatarsal amputation, diabetic, renal failure on hemodialysis, chronic ulcer and now with low grade fevers on daptomycin and meropenem. Stop the Lipitor as per manufacture's recommendations . We will check on all the cultures. Vascular workup in process. We will follow with you. Haresh Cordon MD
[2018-06-12] MEDS ORDERED: Darbepoetin Alfa 100 mcg/ml Inj IVP ONE (10:19)
[2018-06-12] MEDS ORDERED: Doxercalciferol 4 mcg/2 ml Inj IV ONE (10:20)
[2018-06-12 10:27] LABS: IRON 31 ug/dL (45-180)
[2018-06-12 10:37] LABS: % IRON SATURATION 19 % (20-55); TOTAL IRON BINDING CAPACITY 159 ug/dL (265-497)
[2018-06-12] MEDS: oxyCODONE 10 mg ER Tab (oxyCONTIN) PO SCH ×3 (11:55→21:00)
[2018-06-12] MEDS: MEROPENEM 500 MG in NS 500 MG/50 ML BAG IVPB SCH ×2 (12:01→21:00)
--- NOTE | 2018-06-12 14:34 | PN ---
DATE: 06/12/2018 SUBJECTIVE: Yesterday, Dr. Kingsley Wood tried to do a bypass on her bad foot leg and was not able to place a stent, next plan is to have Dr. Hickey debride and take out the bone that is exposed in her foot, that has a transmet and a large ulcer. Dr. Hickey wants to expedite the procedures that is why he called in Kingsley Wood to do it yesterday as opposed to waiting for Thursday. She is now on antibiotics, she is getting dialysis only to transfusion. PHYSICAL EXAMINATION: VITAL SIGNS: Her temperature was 100.2, 65 pulse, 129/58 blood pressure, 20 respiratory rate, 99% O2 sat on nasal cannula. HEENT: Head is atraumatic, normocephalic. HEART: Regular rate. LUNGS: Decreased breath sounds. ABDOMEN: Soft, obese. EXTREMITIES: Her right foot that is bandaged with an exposed bone, peripheral vascular disease. LABORATORY DATA: She has a 6.4 white count; hemoglobin dropped from 9.2 to 7.9, she is going to transfuse a unit of packed red blood cells; 26.3 hematocrit with 355 platelets. 136 sodium, potassium 4, BUN 70, creatinine 4.2 on dialysis, 117 sugar. Calcium is 8, magnesium was not done, iron is 31, iron saturation is 19, I started her on iron. AST is 68, ALT is 35, alk phos 109, total protein 6.5. MEDICATIONS: She is now on Apresoline, aspirin, Cozaar, Dakin's, daptomycin, insulin, Lopressor, Merrem, oxycodone, Percocet, Plavix, Reglan, Sensipar, Tylenol, Zofran. ASSESSMENT AND PLAN: She is being seen by Infectious Disease, Dr. Kingsley Wood; Interventional Vascular Radiology. She was also seen by Andrezleonard Deleon, Cardiology, Podiatry. Next, plan is for debridement and removal of bone in the foot. Continue IV antibiotics, pain management and transfusion. Nir Cox DO
--- NOTE | 2018-06-12 16:11 | PN ---
DATE: 06/12/2018 SUBJECTIVE: The patient is currently undergoing hemodialysis. She complains of right foot pain. PHYSICAL EXAMINATION: VITAL SIGNS: Blood pressure 129/58, heart rate 65, temperature 100.2. HEENT: Pale conjunctivae. CHEST: Diminished breath sounds at the bases. HEART: S1 and S2 regular. EXTREMITIES: Dressings applied to the right foot and 2+ bilateral leg edema. LABORATORY DATA: Hemoglobin and hematocrit are 7.9 and 26.3. White count and platelet count are within normal limits. Today's SMA-7: Sodium 136, potassium 4, chloride 100, CO2 of 30, glucose 117, BUN 17, creatinine 4.2. ASSESSMENT: 1. Coronary artery disease with recent coronary stenting at the [facility]. 2. Peripheral vascular disease, status post recent right transmetatarsal amputation. 3. Borderline troponin elevation. 4. End-stage renal disease, on hemodialysis. 5. [id number] pulmonary hypertension. RECOMMENDATIONS: Continue current hydralazine 25 mg t.i.d., aspirin 81 mg once a day, Cozaar 25 mg once a day, Lopressor 25 mg twice a day, Plavix 75 mg once a day. I will re-order telemetry transfer today. Still awaiting stent report from [facility]. Doe Camargo MD
--- NOTE | 2018-06-12 17:41 | CP.PCM.PN ---
Subjective - Date & Time of Evaluation Date of Evaluation: 06/12/18 Time of Evaluation: 10:00 - Subjective Subjective: Providing nephrology coverage for Dr. Uribe; Patient seen on HD; complaining of leg pain; tolerating UF without hypotension; Objective - Vital Signs/Intake and Output Vital Signs (last 24 hours): Temp Pulse Resp BP Pulse Ox 98.4 F 74 18 138/69 99 06/12/18 16:30 06/12/18 16:30 06/12/18 16:30 06/12/18 16:30 06/12/18 03:00 Intake and Output: 06/12/18 06/12/18 06:59 18:59 Intake Total 200 1025 Output Total 0 Balance 200 1025 - Medications Medications: Current Medications Acetaminophen (Tylenol 325mg Tab) 650 mg PO Q4H PRN PRN Reason: Fever >100.4 F Last Admin: 06/12/18 10:50 Dose: 650 mg Aspirin (Aspirin Chewable) 81 mg PO DAILY [facility] Last Admin: 06/12/18 11:54 Dose: 81 mg Cinacalcet (Sensipar) 30 mg PO TID [facility] Last Admin: 06/12/18 14:05 Dose: 30 mg Clopidogrel Bisulfate (Plavix) 75 mg PO DAILY [facility] Last Admin: 06/12/18 11:56 Dose: 75 mg Ferrous Sulfate (Feosol) 324 mg PO BID [facility] Hydralazine HCl (Apresoline) 25 mg PO TID [facility] Last Admin: 06/12/18 13:58 Dose: 25 mg Daptomycin 640 mg/ Sodium (Chloride) 100 mls @ 200 mls/hr IV Q48H [facility]; Protocol Stop: 06/18/18 18:31 Last Admin: 06/11/18 22:14 Dose: 200 mls/hr Meropenem/Sodium Chloride (Merrem Iv 500 Mg/Ns 50 Ml) 500 mg in 50 mls @ 100 mls/hr IVPB Q12 [facility]; Protocol Stop: 06/18/18 22:01 Last Admin: 06/12/18 12:01 Dose: 100 mls/hr Insulin Human Lispro (Humalog Low) 0 units SC ACHS [facility]; Protocol Last Admin: 06/12/18 16:46 Dose: Not Given Losartan Potassium (Cozaar) 25 mg PO DAILY [facility] Last Admin: 06/12/18 11:56 Dose: 25 mg Metoclopramide HCl (Reglan) 5 mg PO Q6H PRN PRN Reason: Nausea/Vomiting Last Admin: 06/12/18 11:57 Dose: 5 mg Metoprolol Tartrate (Lopressor) 25 mg PO BID [facility] Last Admin: 06/12/18 11:54 Dose: 25 mg Ondansetron HCl (Zofran Inj) 4 mg IVP DAILY PRN PRN Reason: Nausea/Vomiting Last Admin: 06/12/18 06:30 Dose: 4 mg Oxycodone HCl (Oxycontin Extended Release Tab) 10 mg PO Q12 [facility] Stop: 06/14/18 10:01 Last Admin: 06/12/18 12:00 Dose: 10 mg Oxycodone/Acetaminophen (Percocet 5/325 Mg Tab) 1 tab PO Q4H PRN PRN Reason: Pain, moderate (4-7) Stop: 06/14/18 09:30 Last Admin: 06/12/18 07:07 Dose: 1 tab Sodium Hypochlorite (Dakins Solution 0.25%) 0 ml TOP DAILY [facility] Last Admin: 06/12/18 07:30 Dose: 0.25 ml - Labs Labs: 06/12/18 08:10 06/12/18 08:10 - Constitutional Appears: Non-toxic - Eye Exam Eye Exam: Normal appearance - Respiratory Exam Respiratory Exam: Clear to Ausculation Bilateral. absent: Respiratory Distress - Cardiovascular Exam Cardiovascular Exam: RRR, +S1, +S2 - GI/Abdominal Exam GI & Abdominal Exam: Distended, Soft. absent: Tenderness - Extremities Exam Additional comments: mild leg edema b/l - Neurological Exam Neurological Exam: Alert, Awake - Psychiatric Exam Psychiatric exam: absent: Agitated - Skin Skin Exam: Warm. absent: Cyanosis Assessment and Plan (1) ESRD (end stage renal disease) on dialysis Assessment & Plan: Relatively stable volume and electrolyte status; dialyzing today after shortened session yesterday, goal UF 2.5L; next HD for Thursday per routine; Status: Chronic (2) Hypertensive CKD, ESRD on dialysis Assessment & Plan: BP controlled, continue current meds; Status: Chronic (3) Anemia in CKD (chronic kidney disease) Assessment & Plan: Hgb drop noted today; giving 100 mcg aranesp, getting 1 u prbc; Status: Acute (4) CHF (congestive heart failure) Assessment & Plan: With evidence of pulm htn; mild leg edema, overall improved; will target for adequate UF on HD; Status: Chronic
--- NOTE | 2018-06-12 23:42 | CP.PCM.PCO ---
Addendum Addendum: 06/12/18 23:38 House Doctor Note: Paged regarding Patient's complaint of SOB; vitals stable, patient clinically and hemodynamically stable. Patient was seen and evaluated at bedside. Patient denies shortness of breath currently, however she did feel short of breath 1/2 hour ago. Physical exam: Lungs are clear to auscultation bilaterally; no wheezing, no accessory muscle use, no rales, no decreased breath sounds. Patient is resting comfortably at this time. In light of Patient's history of recent cath, Troponin and EKG were ordered.
[2018-06-13] MEDS: Oxycodone/Acetaminophen 5/325 mg Tab PO PRN ×2 (04:09→18:24)
[2018-06-13 07:48] LABS: ALB/GLOB RATIO 0.8 (1.1-1.8); ALBUMIN 3.3 g/dL (3.0-4.8); CALCIUM 7.8 mg/dL (8.4-10.5)
[2018-06-13 07:55] LABS: MEAN CELL VOLUME 81.7 fl (80.0-105.0); MEAN CORPUSCULAR HEMOGLOBIN 24.9 pg (25.0-35.0); MEAN CORPUSCULAR HGB CONC 30.5 g/dl (31.0-37.0); MEAN PLATELET VOLUME 9.1 fl (7.0-11.0); RBC 3.61 10^6/uL (3.5-6.1); RED CELL DISTRIBUTION WIDTH 19.6 % (11.5-14.5); WHITE BLOOD COUNT 6.7 10^3/uL (4.5-11.0)
[2018-06-13] MEDS: Insulin Lispro (humaLOG) LOW Coverage SC SCH ×4 (08:24→22:50)
[2018-06-13] MEDS: oxyCODONE 10 mg ER Tab (oxyCONTIN) PO SCH ×2 (09:34→21:10)
[2018-06-13] MEDS: Dakin's Topical 0.25%-Half Strength (480 ml) TOP SCH (09:38)
--- NOTE | 2018-06-13 10:12 | PN ---
DATE: 06/13/2018 SUBJECTIVE: The patient is in bed and seen earlier today in 261, bed 1. No fevers, no chills. No nausea. OBJECTIVE: VITAL SIGNS: On exam, temperature is 98, blood pressure is 150/70, respiratory rate of 18. HEENT: Unremarkable. NECK: Supple. LUNGS: Have decreased breath sounds. HEART: Normal S1, S2. ABDOMEN: Soft, nontender. Examination of the stump reveals necrotic tissue and large ulcer and no evidence of active infection. LABORATORY EXAMINATION: Reveals a white count of 6.7 and platelets of 362. Creatinine is 4.6. ASSESSMENT AND PLAN: This is a 67-year-old female with super morbid obesity status post transmetatarsal amputation, diabetic renal failure, hemodialysis and with chronic ulcer. At this point no evidence of an active infection, right now waiting for vascular workup to be completed. Dr. Kingsley Wood's note from 06/11/2018 is reviewed. We will follow with you. We will discontinue the antibiotics at this point. No evidence of active infection. The patient with severe right tibial and pedal of occlusive disease. Haresh Cordon MD
--- NOTE | 2018-06-13 13:21 | CP.PCM.PN ---
Subjective - Date & Time of Evaluation Date of Evaluation: 06/13/18 Time of Evaluation: 13:20 - Subjective Subjective: Podiatry progress Note: Dr. Brian Hickey 67 year old female patient, seen and evaluated s/p 5 weks right TMA (DOS: 05/04/18) with subsequent non-healing ulceration and left heel ulceration. Patient resting comfortably in bed and in NAD. She states she was unable to sleep due to burning sensation in her legs. denies acute overnight events. Denies nausea/vomiting/fever/shortness of breath/chest pain. Objective - Vital Signs/Intake and Output Vital Signs (last 24 hours): Temp Pulse Resp BP Pulse Ox 98.1 F 76 20 120/63 100 06/13/18 05:45 06/13/18 10:00 06/13/18 05:45 06/13/18 09:34 06/13/18 05:45 Intake and Output: 06/13/18 06/13/18 06:59 18:59 Intake Total Output Total Balance - Medications Medications: Current Medications Acetaminophen (Tylenol 325mg Tab) 650 mg PO Q4H PRN PRN Reason: Fever >100.4 F Last Admin: 06/12/18 10:50 Dose: 650 mg Aspirin (Aspirin Chewable) 81 mg PO DAILY [facility] Last Admin: 06/13/18 09:33 Dose: 81 mg Atorvastatin Calcium (Lipitor) 10 mg PO DIN [facility] Cinacalcet (Sensipar) 30 mg PO TID [facility] Last Admin: 06/13/18 09:33 Dose: 30 mg Clopidogrel Bisulfate (Plavix) 75 mg PO DAILY [facility] Last Admin: 06/13/18 09:34 Dose: 75 mg Ferrous Sulfate (Feosol) 324 mg PO BID [facility] Last Admin: 06/13/18 09:34 Dose: 324 mg Hydralazine HCl (Apresoline) 25 mg PO TID [facility] Last Admin: 06/13/18 09:34 Dose: 25 mg Insulin Human Lispro (Humalog Low) 0 units SC [facility]; Protocol Last Admin: 06/13/18 08:24 Dose: Not Given Losartan Potassium (Cozaar) 25 mg PO DAILY [facility] Last Admin: 06/13/18 09:34 Dose: 25 mg Metoclopramide HCl (Reglan) 5 mg PO Q6H PRN PRN Reason: Nausea/Vomiting Last Admin: 06/13/18 08:38 Dose: 5 mg Metoprolol Tartrate (Lopressor) 25 mg PO BID [facility] Last Admin: 06/13/18 09:33 Dose: 25 mg Ondansetron HCl (Zofran Inj) 4 mg IVP DAILY PRN PRN Reason: Nausea/Vomiting Last Admin: 06/13/18 06:17 Dose: 4 mg Oxycodone HCl (Oxycontin Extended Release Tab) 10 mg PO Q12 [facility] Stop: 06/14/18 10:01 Last Admin: 06/13/18 09:34 Dose: 10 mg Oxycodone/Acetaminophen (Percocet 5/325 Mg Tab) 1 tab PO Q4H PRN PRN Reason: Pain, moderate (4-7) Stop: 06/14/18 09:30 Last Admin: 06/13/18 04:09 Dose: 1 tab Sodium Hypochlorite (Dakins Solution 0.25%) 0 ml TOP DAILY [facility] Last Admin: 06/13/18 09:38 Dose: 0.25 ml - Labs Labs: 06/13/18 07:00 06/13/18 07:00 - Constitutional Appears: Well, Non-toxic, No Acute Distress - Head Exam Head Exam: ATRAUMATIC, NORMOCEPHALIC - Eye Exam Eye Exam: Normal appearance Pupil Exam: NORMAL ACCOMODATION - ENT Exam ENT Exam: Mucous Membranes Moist - Respiratory Exam Respiratory Exam: NORMAL BREATHING PATTERN - Cardiovascular Exam Cardiovascular Exam: REGULAR RHYTHM - Extremities Exam Additional comments: B/L Lower extremity focused exam: Vasc: DP and PT pulses non-palpable B/L. Temperature gradient warm to warm from proximal to distal. Cap refill < 3 sec to all remaining digits. Mild non-pitting edema noted to dorsum of right foot Ortho: R TMA appreciated Neuro: diminished protective sensation B/L, gross sensation intact Derm: Open ulceration at the plantar aspect of the right lateral midfoot; wound base is 60% necrotic, 20% granular and 20% fibrotic. Wound measures approximately 10cm x 8cm x 3cm. Tunneling and undermining appreciated. Positive probe to bone. positive drainage noted, positive malodor. Remaining sutures in place from TMA site with mild dehiscence appreciated. - Neurological Exam Neurological Exam: Alert, Awake Assessment and Plan - Assessment and Plan (Free Text) Assessment: 67 year old female patient s/p 5 weks right TMA (DOS: 05/04/18) with subsequent non-healing ulceration and left heel ulceration. Plan: Patient seen and evaluated with Dr. Brian Hickey Afebrile, absent leukocytosis Foot x-rays taken; no acute osteo, large soft tissue defect Blood cx;no growth after 48 hours Local wound care; R: Dakins wet to dry, DSD. L: Mepilex Plan for possible wound debridement June 16 pending vascular reccs ID consulted; reccs appreciated Vasc consulted; reccs appreciated- vascular intervention unsuccesful. Continue to wear multi-podus boots at all times while in bed Will continue to follow
--- NOTE | 2018-06-13 13:40 | PN ---
DATE: 06/13/2018 SUBJECTIVE: Maritza had a very good night last night after she got warm, she told me there was no heat last night, but they got her some warm blankets said she is doing well. Also she had transfusions which is helping. LABORATORY DATA: She has a 6.7 white count, 9 hemoglobin, 29.5 hematocrit with 362 platelets. She also has a 136 sodium, potassium 4.2, BUN is 50, creatinine 4.6 on dialysis. GFR is 10, sugar is 88, calcium 7.8, total bili is 0.3, AST is 62, ALT is 29, alk phos 128, a troponin dropped to 0.14 and total protein is 7.3. PHYSICAL EXAMINATION: VITAL SIGNS: She has a 98.1 temperature, 70 pulse, 111/66 blood pressure, 20 respiratory rate, 100% O2 sat on nasal cannula. HEENT: Head is atraumatic, normocephalic. HEART: Regular rate. LUNGS: Decreased breath sounds, but clear. ABDOMEN: Soft, obese. EXTREMITIES: She has a right foot exposed bone with necrotic tissue, which she needs to be fixed by Podiatry, which I believe they will plan to do it on Thursday. She had a procedure on Thursday with Dr. Kingsley Wood which I did not know about, fact they are try and fix her peripheral vascular disease and he was not able to do that. ASSESSMENT AND PLAN: She is being seen by Infectious Disease to stop the antibiotics. Renal, Podiatry, Interventional Radiology. Treatment on Thursday will be a probably bone removal and debridement of eschar and black tissue. Nir Cox DO MTDD
--- NOTE | 2018-06-13 19:19 | PN ---
DATE: 06/13/2018 SUBJECTIVE: The patient denies any chest pain. No reported ventricular arrhythmia. OBJECTIVE: VITAL SIGNS: Blood pressure 134/68, heart rate 70, temperature 98, respiration 20. HEENT: Normocephalic. CHEST: Clear. HEART: S1, S2 regular. EXTREMITIES: Dressings applied to the right foot, 1+ pitting edema. LABORATORY DATA: Today's hemoglobin and hematocrit 9 and 29.5, white count and platelet count are within normal limits. Today's SMA-7 is within normal limits except for creatinine of 4.6. Yesterday's troponin 0.14. Blood cultures negative after 48 hours. ASSESSMENT: 1. Coronary artery disease status post recent coronary stenting. 2. Borderline troponin elevation, unlikely represent acute myocardial injury. 3. End-stage renal disease, on hemodialysis. 4. [id number] pulmonary hypertension. 5. Peripheral vascular disease. The patient underwent abdominal aortogram with selective right lower extremity arteriogram, was antegrade and retrograde approaches with the findings of severe right tibial and pedal occlusive disease and unsuccessful attempts that is causing the right anterior tibial and peroneal occlusions from the antegrade and retrograde approach. RECOMMENDATIONS: Continue hydralazine 25 mg three times a day, aspirin 81 mg once a day, Cozaar 25 mg once a day, Lipitor 10 mg once a day, Lopressor 25 mg twice a day, Plavix 75 mg once a day. Doe Camargo MD
--- NOTE | 2018-06-13 19:47 | CARD ---
APPROVED REPORT Date of service: 06/12/2018 EKG Measurement Heart [id number] <Conclusion> Normal sinus rhythm Left axis deviation Abnormal ECG
[2018-06-13] MEDS ORDERED: Albuterol-Ipratrop 3 mg / 0.5 (3 ml) UD IH STA (21:00)
--- NOTE | 2018-06-14 02:46 | CP.PCM.PN ---
Subjective - Date & Time of Evaluation Date of Evaluation: 06/14/18 Time of Evaluation: 02:43 - Subjective Subjective: I was asked to co-sign order"EKG,Duoneb neb treatment ." Patient was seen at bedside. He has no complaints now. States that he has no sob nor wheezing. Has no chest pain. Had sob and little chest pain earlier. Had been given duoneb neb treatment and EKG was done which showed NSR, no acute changes. Medical recorfd was reviewed. This 67 year old woman was admitted for right foot wound. Has PMH of HTN,Diabetic nephropathy , cataract , appendectomy,cholecystectomy,tonsillectomy. Objective - Vital Signs/Intake and Output Vital Signs (last 24 hours): Temp Pulse Resp BP Pulse Ox 97.1 F L 66 19 152/76 H 100 06/13/18 18:00 06/14/18 02:00 06/13/18 18:00 06/13/18 18:00 06/13/18 05:45 - Medications Medications: Current Medications Acetaminophen (Tylenol 325mg Tab) 650 mg PO Q4H PRN PRN Reason: Fever >100.4 F Last Admin: 06/12/18 10:50 Dose: 650 mg Aspirin (Aspirin Chewable) 81 mg PO DAILY [facility] Last Admin: 06/13/18 09:33 Dose: 81 mg Atorvastatin Calcium (Lipitor) 10 mg PO DIN [facility] Last Admin: 06/13/18 17:18 Dose: 10 mg Cinacalcet (Sensipar) 30 mg PO TID [facility] Last Admin: 06/13/18 17:17 Dose: 30 mg Clopidogrel Bisulfate (Plavix) 75 mg PO DAILY [facility] Last Admin: 06/13/18 09:34 Dose: 75 mg Docusate Sodium (Colace) 100 mg PO DAILY [facility] Last Admin: 06/13/18 16:27 Dose: 100 mg Ferrous Sulfate (Feosol) 324 mg PO BID [facility] Last Admin: 06/13/18 17:17 Dose: 324 mg Hydralazine HCl (Apresoline) 25 mg PO TID [facility] Last Admin: 06/13/18 17:19 Dose: 25 mg Insulin Human Lispro (Humalog Low) 0 units SC ACHS [facility]; Protocol Last Admin: 06/13/18 22:50 Dose: Not Given Losartan Potassium (Cozaar) 25 mg PO DAILY [facility] Last Admin: 06/13/18 09:34 Dose: 25 mg Metoclopramide HCl (Reglan) 5 mg PO Q6H PRN PRN Reason: Nausea/Vomiting Last Admin: 06/13/18 19:33 Dose: 5 mg Metoprolol Tartrate (Lopressor) 25 mg PO BID [facility] Last Admin: 06/13/18 17:18 Dose: 25 mg Ondansetron HCl (Zofran Inj) 4 mg IVP DAILY PRN PRN Reason: Nausea/Vomiting Last Admin: 06/13/18 21:08 Dose: 4 mg Oxycodone HCl (Oxycontin Extended Release Tab) 10 mg PO Q12 [facility] Stop: 06/14/18 10:01 Last Admin: 06/13/18 21:10 Dose: 10 mg Oxycodone/Acetaminophen (Percocet 5/325 Mg Tab) 1 tab PO Q4H PRN PRN Reason: Pain, moderate (4-7) Stop: 06/14/18 09:30 Last Admin: 06/13/18 18:24 Dose: 1 tab Sodium Hypochlorite (Dakins Solution 0.25%) 0 ml TOP DAILY [facility] Last Admin: 06/13/18 09:38 Dose: 0.25 ml - Labs Labs: 06/13/18 07:00 06/13/18 07:00 - Constitutional Appears: Well, No Acute Distress - Head Exam Head Exam: ATRAUMATIC, NORMAL INSPECTION, NORMOCEPHALIC - Eye Exam Eye Exam: Normal appearance - ENT Exam ENT Exam: Normal External Ear Exam - Neck Exam Neck Exam: Normal Inspection - Respiratory Exam Respiratory Exam: NORMAL BREATHING PATTERN - Cardiovascular Exam Cardiovascular Exam: absent: Diastolic murmur - GI/Abdominal Exam GI & Abdominal Exam: absent: Distended - Rectal Exam Rectal Exam: NORMAL INSPECTION - Exam External exam: NORMAL EXTERNAL EXAM Additional comments: Deferred. - Extremities Exam Extremities Exam: Normal Inspection - Back Exam Back Exam: NORMAL INSPECTION - Neurological Exam Neurological Exam: Alert, Awake - Psychiatric Exam Psychiatric exam: Normal Affect, Normal Mood - Skin Skin Exam: Normal Color Assessment and Plan - Assessment and Plan (Free Text) Assessment: Sob. Wheezing. HTN. Diabetic retinopathy. Plan: EKG- NSR, NO acute changes. Duoneb neb treatment. Continue present management.,
[2018-06-14] MEDS: Oxycodone/Acetaminophen 5/325 mg Tab PO PRN (05:21)
[2018-06-14] MEDS: Insulin Lispro (humaLOG) LOW Coverage SC SCH ×4 (08:01→23:48)
--- NOTE | 2018-06-14 09:45 | CARD ---
APPROVED REPORT Date of service: 06/13/2018 EKG Measurement Heart [id number] <Conclusion> Sinus bradycardia with 1st degree AV block Left axis deviation Borderline Prolonged QT
--- NOTE | 2018-06-14 10:38 | CP.PCM.PN ---
Subjective - Date & Time of Evaluation Date of Evaluation: 06/14/18 Time of Evaluation: 10:38 - Subjective Subjective: Podiatry progress Note: Dr. Brian Hickey 67 year old female patient, seen and evaluated s/p 5 weeks right TMA (DOS: 05/04/18) with subsequent non-healing ulceration and left heel ulceration. She denies any pain to her right lower extremity at this time. Patient accompanied by her friend at today's visit. Denies nausea/vomiting/fever/chest pain/chills. Objective - Vital Signs/Intake and Output Vital Signs (last 24 hours): Temp Pulse Resp BP Pulse Ox 97.6 F 84 20 143/69 96 06/14/18 06:00 06/14/18 06:00 06/14/18 06:00 06/14/18 06:00 06/14/18 06:00 Intake and Output: 06/14/18 06/14/18 06:59 18:59 Intake Total 360 Output Total 125 Balance 235 - Medications Medications: Current Medications Acetaminophen (Tylenol 325mg Tab) 650 mg PO Q4H PRN PRN Reason: Fever >100.4 F Last Admin: 06/12/18 10:50 Dose: 650 mg Aspirin (Aspirin Chewable) 81 mg PO DAILY [facility] Last Admin: 06/13/18 09:33 Dose: 81 mg Atorvastatin Calcium (Lipitor) 10 mg PO DIN [facility] Last Admin: 06/13/18 17:18 Dose: 10 mg Cinacalcet (Sensipar) 30 mg PO TID [facility] Last Admin: 06/13/18 17:17 Dose: 30 mg Clopidogrel Bisulfate (Plavix) 75 mg PO DAILY [facility] Last Admin: 06/13/18 09:34 Dose: 75 mg Docusate Sodium (Colace) 100 mg PO DAILY [facility] Last Admin: 06/13/18 16:27 Dose: 100 mg Ferrous Sulfate (Feosol) 324 mg PO BID [facility] Last Admin: 06/13/18 17:17 Dose: 324 mg Hydralazine HCl (Apresoline) 25 mg PO TID [facility] Last Admin: 06/13/18 17:19 Dose: 25 mg Insulin Human Lispro (Humalog Low) 0 units SC ACHS [facility]; Protocol Last Admin: 06/14/18 08:01 Dose: Not Given Losartan Potassium (Cozaar) 25 mg PO DAILY [facility] Last Admin: 06/13/18 09:34 Dose: 25 mg Metoclopramide HCl (Reglan) 5 mg PO Q6H PRN PRN Reason: Nausea/Vomiting Last Admin: 06/13/18 19:33 Dose: 5 mg Metoprolol Tartrate (Lopressor) 25 mg PO BID [facility] Last Admin: 06/13/18 17:18 Dose: 25 mg Ondansetron HCl (Zofran Inj) 4 mg IVP DAILY PRN PRN Reason: Nausea/Vomiting Last Admin: 06/14/18 05:21 Dose: 4 mg Sodium Hypochlorite (Dakins Solution 0.25%) 0 ml TOP DAILY [facility] Last Admin: 06/13/18 09:38 Dose: 0.25 ml - Labs Labs: 06/13/18 07:00 06/13/18 07:00 - Constitutional Appears: Non-toxic, No Acute Distress - Head Exam Head Exam: ATRAUMATIC, NORMOCEPHALIC - Extremities Exam Additional comments: B/L Lower extremity focused exam: Vasc: DP and PT pulses non-palpable B/L. Temperature gradient warm to warm from proximal to distal. Cap refill < 3 sec to all remaining digits. Mild non-pitting edema noted to dorsum of right foot Ortho: R TMA appreciated Neuro: diminished protective sensation B/L, gross sensation intact Derm: Open ulceration at the plantar aspect of the right lateral midfoot; wound base is 60% necrotic, 20% granular and 20% fibrotic. Wound measures approximately 10cm x 8cm x 3cm. Tunneling and undermining appreciated. Positive probe to bone. positive drainage noted, positive malodor. Remaining sutures in place from TMA site with mild dehiscence appreciated. - Neurological Exam Neurological Exam: Alert, Awake, Oriented x3 - Psychiatric Exam Psychiatric exam: Normal Affect, Normal Mood Assessment and Plan - Assessment and Plan (Free Text) Assessment: 67 year old female patient s/p 5 weeks right TMA (DOS: 05/04/18) with subsequent non-healing ulceration and left heel ulceration. Plan: Patient seen and evaluated at bedside with attending Dr. Brian Hickey Afebrile, absent leukocytosis Foot x-rays taken; no acute osteo, large soft tissue defect Blood cx;no growth after 3 days Local wound care; R: Dakins wet to dry, DSD. L: Mepilex Plan for wound debridement June 16 Please medically clear/optimize patient Please plan for dialysis prior to surgery at 1:00 pm Patient to remain NWB to the right lower extremity ID consulted; reccs appreciated Vasc consulted; reccs appreciated- vascular intervention unsuccesful. Continue to wear multi-podus boots at all times while in bed Will continue to follow
[2018-06-14] MEDS: Dakin's Topical 0.25%-Half Strength (480 ml) TOP SCH (10:46)
[2018-06-14] MEDS: oxyCODONE 10 mg ER Tab (oxyCONTIN) PO SCH (11:02)
--- NOTE | 2018-06-14 11:10 | PN ---
DATE: 06/14/2018 SUBJECTIVE: I saw Maritza in her room this morning. She is resting comfortably in bed. She is status post Dr. Kingsley Wood's interventional radiology procedure on Thursday. The next plan is for Thursday to have a right foot surgery of the exposed bone and repair. She is comfortable. PHYSICAL EXAMINATION: VITAL SIGNS: Temperature 97.6, 84 pulse, 143/69 blood pressure, 20 respiratory rate, 96% O2 sat nasal cannula. HEENT: Head is atraumatic, normocephalic. HEART: Regular rate. LUNGS: Decreased breath sounds. ABDOMEN: Soft, obese. EXTREMITIES: +1/4 pitting edema. The right foot is bandaged. She did not go for dialysis today. She is on Apresoline, aspirin, Colace, Cozaar, Dakin's Solution, Feosol, insulin, Lipitor, Lopressor, oxycodone, Percocet, Plavix, Reglan, Sensipar, Tylenol, and Zofran. She is being seen by hospitalist, customer care specialist, Infectious Disease, Renal, and interventional radiologist. Solution Manager participation on my service last week due to o worsening of the right foot from healing, did interventional try. the vessel, they were unsuccessful. Now, the plan is to do surgery on Thursday. At this time, no antibiotics as per Infectious Disease. After procedure on Thursday, the plan would be to go back to [facility] for physical therapy and wound care. Nir Cox DO MTDD
--- NOTE | 2018-06-14 13:44 | CP.PCM.PN ---
Subjective - Date & Time of Evaluation Date of Evaluation: 06/14/18 Time of Evaluation: 13:37 - Subjective Subjective: Nephrology Progress Note (Dr. Siegel's Service): Patient seen and assessed at bedside with sister present. No acute events noted overnight. Patient reports that she is somewhat fatigued from having to wake up early but otherwise has no complaints. Further 12 point ROS grossly unremarkable. Objective - Vital Signs/Intake and Output Vital Signs (last 24 hours): Temp Pulse Resp BP Pulse Ox 98 F 71 18 139/65 96 06/14/18 11:43 06/14/18 11:43 06/14/18 11:43 06/14/18 11:43 06/14/18 06:00 Intake and Output: 06/14/18 06/14/18 06:59 18:59 Intake Total 360 Output Total 125 Balance 235 - Medications Medications: Current Medications Acetaminophen (Tylenol 325mg Tab) 650 mg PO Q4H PRN PRN Reason: Fever >100.4 F Last Admin: 06/12/18 10:50 Dose: 650 mg Aspirin (Aspirin Chewable) 81 mg PO DAILY [facility] Last Admin: 06/13/18 09:33 Dose: 81 mg Atorvastatin Calcium (Lipitor) 10 mg PO DIN [facility] Last Admin: 06/13/18 17:18 Dose: 10 mg Cinacalcet (Sensipar) 30 mg PO TID [facility] Last Admin: 06/13/18 17:17 Dose: 30 mg Clopidogrel Bisulfate (Plavix) 75 mg PO DAILY [facility] Last Admin: 06/13/18 09:34 Dose: 75 mg Docusate Sodium (Colace) 100 mg PO DAILY [facility] Last Admin: 06/13/18 16:27 Dose: 100 mg Ferrous Sulfate (Feosol) 324 mg PO BID [facility] Last Admin: 06/13/18 17:17 Dose: 324 mg Hydralazine HCl (Apresoline) 25 mg PO TID [facility] Last Admin: 06/13/18 17:19 Dose: 25 mg Insulin Human Lispro (Humalog Low) 0 units SC [facility]; Protocol Last Admin: 06/14/18 08:01 Dose: Not Given Losartan Potassium (Cozaar) 25 mg PO DAILY [facility] Last Admin: 06/13/18 09:34 Dose: 25 mg Metoclopramide HCl (Reglan) 5 mg PO Q6H PRN PRN Reason: Nausea/Vomiting Last Admin: 06/13/18 19:33 Dose: 5 mg Metoprolol Tartrate (Lopressor) 25 mg PO BID [facility] Last Admin: 06/13/18 17:18 Dose: 25 mg Ondansetron HCl (Zofran Inj) 4 mg IVP DAILY PRN PRN Reason: Nausea/Vomiting Last Admin: 06/14/18 05:21 Dose: 4 mg Sodium Hypochlorite (Dakins Solution 0.25%) 0 ml TOP DAILY [facility] Last Admin: 06/14/18 10:46 Dose: Not Given - Labs Labs: 06/13/18 07:00 06/13/18 07:00 - Constitutional Appears: Non-toxic, No Acute Distress - Head Exam Head Exam: ATRAUMATIC, NORMOCEPHALIC - Eye Exam Eye Exam: EOMI - ENT Exam ENT Exam: Mucous Membranes Moist - Neck Exam Neck Exam: Full ROM - Respiratory Exam Respiratory Exam: Clear to Ausculation Bilateral, NORMAL BREATHING PATTERN - Cardiovascular Exam Cardiovascular Exam: REGULAR RHYTHM - GI/Abdominal Exam GI & Abdominal Exam: Soft, Normal Bowel Sounds. absent: Tenderness - Extremities Exam Additional comments: RLE wound dressing c/d/i - Neurological Exam Neurological Exam: Alert, Awake, Oriented x3 - Psychiatric Exam Psychiatric exam: Normal Affect, Normal Mood - Skin Skin Exam: Dry, Warm Assessment and Plan - Assessment and Plan (Free Text) Assessment: 67 year old AA female with a past medical history significant for ESRD on HD, HTN, HLD, DM2 and anemia who presented with RLE infection. Plan: 1. ESRD on HD -HD today with goal UF of 3L -Avoid nephrotoxic agents and renally dose medications as indicated -Continue to monitor BUN, creatinine and eGFR with daily CMP's 2. Hypertensive CKD -Currently well controlled -Continue current medications as ordered 3. Anemia in CKD -Stable s/p one dose of Aranesp and one unit of pRBC's -Continue to monitor with daily CBC's 4. Systolic CHF -Volume status stable currently -Continue to target adequate UF on HD Patient seen and case discussed with attending, Dr. Siegel. Newton Holman PGY2
--- NOTE | 2018-06-14 17:51 | PN ---
DATE: 06/14/2018 SUBJECTIVE: The patient complains of dyspnea, especially while on bed, consistent with orthopnea. No angina noted. PHYSICAL EXAMINATION: VITAL SIGNS: Blood pressure is 143/69, heart rate is in the 80s. NECK: Negative JVD. LUNGS: Without rales. Decreased breath sounds. HEART: Reveal S1, S2. EXTREMITIES: Status post surgery of the right lower extremity. LABORATORY: Hemoglobin is 9. Chemistries, BUN and creatinine is 50 and 4.6. Troponin is 0.14. IMPRESSION: 1. Orthopnea. 2. Acute systolic congestive heart failure. 3. Recent percutaneous transluminal coronary angiography and stent at [place]. 4. Renal insufficiency. 5. Diabetes mellitus. 6. Peripheral vascular disease. 7. Elevated troponins which may be due to her renal insufficiency. PLAN: Given these findings, the patient is for dialysis today. We will obtain an echocardiogram to evaluate the status of her LV function. We will follow her to her orthopneic symptoms as well as serial troponins. Kingsley Powers MD
[2018-06-14] MEDS ORDERED: Albuterol-Ipratrop 3 mg / 0.5 (3 ml) UD IH STA (20:55)
--- NOTE | 2018-06-14 21:36 | CP.PCM.PN ---
Subjective - Date & Time of Evaluation Date of Evaluation: 06/14/18 Time of Evaluation: 21:32 - Subjective Subjective: It was requested to co sign order for Duoneb. Patient was seen at bedside. States that she is not getting enough oxygen. Has no other complaints. Pulse ox is 99 % on 2L/Min. Medical record was reviewed . This 67 year old woman was admitted with right foot wound. Has PMH of HTN,DM, diabetic retinopathy, cholecystectomy, appendectomy, tonsillectomy. Objective - Vital Signs/Intake and Output Vital Signs (last 24 hours): Temp Pulse Resp BP Pulse Ox 98.6 F 84 18 135/81 96 06/14/18 18:12 06/14/18 18:24 06/14/18 18:12 06/14/18 18:24 06/14/18 06:00 Intake and Output: 06/14/18 06/15/18 18:59 06:59 Intake Total 720 Output Total 100 Balance 620 - Medications Medications: Current Medications Acetaminophen (Tylenol 325mg Tab) 650 mg PO Q4H PRN PRN Reason: Fever >100.4 F Last Admin: 06/12/18 10:50 Dose: 650 mg Aspirin (Aspirin Chewable) 81 mg PO DAILY [facility] Last Admin: 06/13/18 09:33 Dose: 81 mg Atorvastatin Calcium (Lipitor) 10 mg PO DIN [facility] Last Admin: 06/14/18 18:19 Dose: 10 mg Cinacalcet (Sensipar) 30 mg PO TID [facility] Last Admin: 06/14/18 18:12 Dose: 30 mg Clopidogrel Bisulfate (Plavix) 75 mg PO DAILY [facility] Last Admin: 06/13/18 09:34 Dose: 75 mg Docusate Sodium (Colace) 100 mg PO DAILY [facility] Last Admin: 06/14/18 18:12 Dose: 100 mg Ferrous Sulfate (Feosol) 324 mg PO BID [facility] Last Admin: 06/14/18 18:12 Dose: 324 mg Hydralazine HCl (Apresoline) 25 mg PO TID [facility] Last Admin: 06/14/18 18:12 Dose: 25 mg Insulin Human Lispro (Humalog Low) 0 units SC ACHS [facility]; Protocol Last Admin: 06/14/18 18:19 Dose: Not Given Losartan Potassium (Cozaar) 25 mg PO DAILY [facility] Last Admin: 06/14/18 18:24 Dose: 25 mg Metoclopramide HCl (Reglan) 5 mg PO Q6H PRN PRN Reason: Nausea/Vomiting Last Admin: 06/13/18 19:33 Dose: 5 mg Metoprolol Tartrate (Lopressor) 25 mg PO BID [facility] Last Admin: 06/14/18 18:20 Dose: 25 mg Ondansetron HCl (Zofran Inj) 4 mg IVP DAILY PRN PRN Reason: Nausea/Vomiting Last Admin: 06/14/18 05:21 Dose: 4 mg Sodium Hypochlorite (Dakins Solution 0.25%) 0 ml TOP DAILY [facility] Last Admin: 06/14/18 10:46 Dose: Not Given - Labs Labs: 06/13/18 07:00 06/13/18 07:00 - Constitutional Appears: Well, No Acute Distress - Head Exam Head Exam: ATRAUMATIC, NORMAL INSPECTION, NORMOCEPHALIC - Eye Exam Eye Exam: Normal appearance - ENT Exam ENT Exam: Normal External Ear Exam - Neck Exam Neck Exam: Normal Inspection - Respiratory Exam Respiratory Exam: NORMAL BREATHING PATTERN - Cardiovascular Exam Cardiovascular Exam: absent: JVD - GI/Abdominal Exam GI & Abdominal Exam: absent: Distended - Rectal Exam Rectal Exam: Deferred - Exam Additional comments: Deferred. - Extremities Exam Extremities Exam: Normal Inspection Additional comments: Both feet are wrapped with dressing. - Back Exam Back Exam: NORMAL INSPECTION - Neurological Exam Neurological Exam: Alert, Awake, Oriented x3 - Psychiatric Exam Psychiatric exam: Normal Affect, Normal Mood - Skin Skin Exam: Normal Color Assessment and Plan - Assessment and Plan (Free Text) Assessment: Dyspnea. DM. Diabetic retinopathy. HTN. Plan: Duoneb nebulizer treatment. Continue present management.
--- NOTE | 2018-06-14 21:52 | PN ---
DATE: 06/14/2018 SUBJECTIVE: The patient is in bed, in no acute distress, nontoxic. PHYSICAL EXAMINATION: VITAL SIGNS: Temperature is 98, blood pressure is 120/70, respiratory rate is 16. HEENT: Unremarkable. NECK: Supple. LUNGS: Decreased breath sounds. HEART: Normal S1 and S2. ABDOMEN: Soft. LABORATORY EXAMINATION: Reveals a white count of 6.7, hemoglobin of 9. Microbiology is noted. The blood cultures are negative. note is reviewed. ASSESSMENT AND PLAN: A 67-year-old female with super-morbid obesity, status post transmetatarsal amputation, diabetic renal failure, hemodialysis, chronic ulcer. No evidence of active infection. The patient is waiting for a vascular workup with Dr. Kingsley Wood. We will hold off any antibiotics at this point. Local wound care to the stump. Dr. Nir Cox's note is reviewed. Haresh Cordon MD
[2018-06-15] MEDS ORDERED: Oxycodone/Acetaminophen 5/325 mg Tab PO ONE (01:27)
[2018-06-15 07:51] LABS: HEMOGLOBIN 9.4 g/dL (12.0-16.0); MEAN CELL VOLUME 80.8 fl (80.0-105.0); MEAN CORPUSCULAR HEMOGLOBIN 25.4 pg (25.0-35.0); MEAN CORPUSCULAR HGB CONC 31.4 g/dl (31.0-37.0); MEAN PLATELET VOLUME 9.1 fl (7.0-11.0); RBC 3.7 10^6/uL (3.5-6.1); RED CELL DISTRIBUTION WIDTH 19.7 % (11.5-14.5); WHITE BLOOD COUNT 7.7 10^3/uL (4.5-11.0)
[2018-06-15] MEDS: Insulin Lispro (humaLOG) LOW Coverage SC SCH ×4 (07:58→22:43)
[2018-06-15 08:09] LABS: ALB/GLOB RATIO 0.9 (1.1-1.8); ALBUMIN 3.5 g/dL (3.0-4.8); CALCIUM 7.9 mg/dL (8.4-10.5)
[2018-06-15 08:11] LABS: TROPONIN I 0.06 ng/mL
--- NOTE | 2018-06-15 10:10 | PN ---
DATE: 06/15/2018 SUBJECTIVE: She is very upset. She had a very rough night last night. She was told her pain meds fell off and she could not get anymore pain meds. I did not receive a phone call to reorder them, not sure why. She is also very constipated from the iron. I will stop the iron. I will give her Fleet's enema this morning. She is on Colace, also she was told she cannot get the Zofran, I will make sure she get the Zofran. She is not sleeping well and tomorrow she is going for foot surgery with podiatry. OBJECTIVE: VITAL SIGNS: She has a 98.2 temperature, 72 pulse, 136/63 blood pressure, 20 respiratory rate, 98% O2 sat. HEENT: Head is atraumatic, normocephalic. HEART: Regular rate. LUNGS: Decreased breath sounds, but clear. ABDOMEN: Soft, obese, nontender. EXTREMITIES: The right foot is bandaged. She has a TMA and exposed bone. There was a procedure done by Dr. Kingsley Wood on Thursday and he could not open the lower vessels. LABORATORY DATA: She has a 7.7 white count, 9.4 hemoglobin, 29.9 hematocrit with 375 platelets. Sodium 136, potassium 4, BUN 13, creatinine 4.3 on dialysis. GFR is 10, sugar is 86, calcium is 7.9, total bili is 0.4, AST is 58, ALT is 28, alk phos 167. Troponin I is 0.06 and total protein 7.5. IMPRESSION AND PLAN: She is being seen by Infectious Disease, Cardiology, Podiatry. She had acute congestive heart failure, coronary artery disease, peripheral vascular disease, renal insufficiency, diabetes. She has elevated troponins probably due to renal insufficiency, exposed bone on the right foot, but there is a TMA. We are trying to save the foot. Hopefully the surgery tomorrow will help with Dr. Hickey. We will check her labs tomorrow. Adjust the medications at length. Hopefully she will go to bathroom with the Fleet's enema and she will be back on her pain meds. Nir Cox DO
[2018-06-15] MEDS: Oxycodone/Acetaminophen 5/325 mg Tab PO PRN (10:11)
--- NOTE | 2018-06-15 10:46 | CP.PCM.PN ---
Subjective - Date & Time of Evaluation Date of Evaluation: 06/15/18 Time of Evaluation: 10:44 - Subjective Subjective: Nephrology Progress Note (Dr. Siegel's Service): Patient seen and assessed at bedside. No acute events noted overnight. Patient reports that she had more adequate sleep overnight but does endorse constipation for 6 days. She also reports that she tolerated her HD yesterday and denies any complications. Further 12 point ROS grossly unremarkable. Objective - Vital Signs/Intake and Output Vital Signs (last 24 hours): Temp Pulse Resp BP Pulse Ox 98.2 F 78 20 136/63 98 06/15/18 06:00 06/15/18 06:00 06/15/18 06:00 06/15/18 06:00 06/15/18 06:00 Intake and Output: 06/15/18 06/15/18 06:59 18:59 Intake Total 1140 Output Total 200 Balance 940 - Medications Medications: Current Medications Acetaminophen (Tylenol 325mg Tab) 650 mg PO Q4H PRN PRN Reason: Fever >100.4 F Last Admin: 06/12/18 10:50 Dose: 650 mg Aspirin (Aspirin Chewable) 81 mg PO DAILY [facility] Last Admin: 06/13/18 09:33 Dose: 81 mg Atorvastatin Calcium (Lipitor) 10 mg PO DIN [facility] Last Admin: 06/14/18 18:19 Dose: 10 mg Cinacalcet (Sensipar) 30 mg PO DAILY [facility] Clopidogrel Bisulfate (Plavix) 75 mg PO DAILY [facility] Last Admin: 06/13/18 09:34 Dose: 75 mg Docusate Sodium (Colace) 100 mg PO DAILY [facility] Last Admin: 06/15/18 10:11 Dose: 100 mg Hydralazine HCl (Apresoline) 25 mg PO TID [facility] Last Admin: 06/15/18 10:11 Dose: 25 mg Insulin Human Lispro (Humalog Low) 0 units SC ACHS [facility]; Protocol Last Admin: 06/15/18 07:58 Dose: Not Given Losartan Potassium (Cozaar) 25 mg PO DAILY [facility] Last Admin: 06/15/18 10:11 Dose: 25 mg Metoclopramide HCl (Reglan) 5 mg PO Q6H PRN PRN Reason: Nausea/Vomiting Last Admin: 06/14/18 22:09 Dose: 5 mg Metoprolol Tartrate (Lopressor) 25 mg PO BID [facility] Last Admin: 06/15/18 10:11 Dose: 25 mg Ondansetron HCl (Zofran Inj) 4 mg IVP Q4 PRN PRN Reason: Nausea/Vomiting Oxycodone HCl (Oxycontin Extended Release Tab) 10 mg PO Q12 [facility] Stop: 06/18/18 10:01 Oxycodone/Acetaminophen (Percocet 5/325 Mg Tab) 1 tab PO Q6H PRN PRN Reason: Pain, moderate (4-7) Stop: 06/18/18 07:54 Last Admin: 06/15/18 10:11 Dose: 1 tab Sodium Hypochlorite (Dakins Solution 0.25%) 0 ml TOP DAILY [facility] Last Admin: 06/14/18 10:46 Dose: Not Given Zolpidem Tartrate (Ambien) 5 mg PO HS PRN; Protocol PRN Reason: Insomnia - Labs Labs: 06/15/18 07:15 06/15/18 07:15 - Constitutional Appears: Non-toxic, No Acute Distress - Head Exam Head Exam: ATRAUMATIC, NORMOCEPHALIC - Eye Exam Eye Exam: EOMI - ENT Exam ENT Exam: Mucous Membranes Moist - Neck Exam Neck Exam: Full ROM - Respiratory Exam Respiratory Exam: Clear to Ausculation Bilateral, NORMAL BREATHING PATTERN. absent: Wheezes, Respiratory Distress - Cardiovascular Exam Cardiovascular Exam: REGULAR RHYTHM, RRR - GI/Abdominal Exam GI & Abdominal Exam: Soft, Normal Bowel Sounds. absent: Tenderness - Extremities Exam Extremities Exam: absent: Pedal Edema Additional comments: RLE wound dressing c/d/i - Neurological Exam Neurological Exam: Alert, Awake, Oriented x3 - Psychiatric Exam Psychiatric exam: Normal Affect, Normal Mood - Skin Skin Exam: Dry, Warm Assessment and Plan - Assessment and Plan (Free Text) Assessment: 67 year old AA female with a past medical history significant for ESRD on HD, HTN, HLD, DM2 and anemia who presented with RLE infection. Plan: 1. ESRD on HD -S/P HD with 3L UF; Electrolyte within normal limits and fluid status stable -Continue to avoid nephrotoxic agents and renally dose medications as indicated -Continue to monitor BUN, creatinine and eGFR with daily CMP's 2. Hypertensive CKD -Currently well controlled -Continue current medications as ordered 3. Anemia in CKD -Stable s/p one dose of Aranesp and one unit of pRBC's -Continue to monitor with daily CBC's 4. Systolic CHF -Volume status stable currently -Continue to target adequate UF on HD 5. Constipation -Would recommend tap water enema's if needed over phosphate containing fleet mel herbert's Patient seen and case discussed with attending, Dr. Siegel. Newton Holman PGY2
[2018-06-15] MEDS: oxyCODONE 10 mg ER Tab (oxyCONTIN) PO SCH ×2 (12:11→22:44)
--- NOTE | 2018-06-15 14:41 | PN ---
DATE: 06/15/2018 SUBJECTIVE: The patient's breathing is better after dialysis and a bowel movement. PHYSICAL EXAMINATION: VITAL SIGNS: Blood pressure is 136/63, heart rates in the 70s. NECK: Negative JVD. LUNGS: Without rales. HEART: S1, S2. EXTREMITIES: Status post amputation of the lower digits. LABORATORY DATA: Hemoglobin is 9.4. Chemistries, BUN and creatinine are 14 and 4.3. IMPRESSION: 1. Resolution of congestive heart failure post dialysis. 2. End-stage renal disease. 3. Coronary artery disease. 4. Recent percutaneous transluminal coronary angioplasty and stent. 5. Diabetes mellitus. 6. Peripheral vascular disease. Given these findings, the patient is doing better today. Awaiting echocardiogram to evaluate her LV function. Kingsley Powers MD
[2018-06-15] MEDS: Dakin's Topical 0.25%-Half Strength (480 ml) TOP SCH (16:03)
--- NOTE | 2018-06-15 16:17 | CP.PCM.PN ---
Subjective - Date & Time of Evaluation Date of Evaluation: 06/15/18 Time of Evaluation: 16:13 - Subjective Subjective: Podiatry progress Note: Dr. Brian Hickey Patient seen and evaluated at bedside s/p 6 weeks R TMA (DOS: 05/04/18). Patient resting comfortably and in NAD. She denies any pain to her R lower extremity at this time, however notes that she is anxious for surgery tomorrow. Denies nausea/vomiting/fever/chest pain/chills. Objective - Vital Signs/Intake and Output Vital Signs (last 24 hours): Temp Pulse Resp BP Pulse Ox 97.9 F 75 18 118/51 L 98 06/15/18 12:00 06/15/18 12:00 06/15/18 12:00 06/15/18 12:00 06/15/18 06:00 Intake and Output: 06/15/18 06/15/18 06:59 18:59 Intake Total 1140 Output Total 200 Balance 940 - Medications Medications: Current Medications Acetaminophen (Tylenol 325mg Tab) 650 mg PO Q4H PRN PRN Reason: Fever >100.4 F Last Admin: 06/12/18 10:50 Dose: 650 mg Alprazolam (Xanax) 0.25 mg PO TID PRN; Protocol PRN Reason: Anxiety Stop: 06/22/18 18:01 Aspirin (Aspirin Chewable) 81 mg PO DAILY [facility] Last Admin: 06/13/18 09:33 Dose: 81 mg Atorvastatin Calcium (Lipitor) 10 mg PO DIN [facility] Last Admin: 06/14/18 18:19 Dose: 10 mg Cinacalcet (Sensipar) 30 mg PO DAILY [facility] Clopidogrel Bisulfate (Plavix) 75 mg PO DAILY [facility] Last Admin: 06/13/18 09:34 Dose: 75 mg Docusate Sodium (Colace) 100 mg PO DAILY [facility] Last Admin: 06/15/18 10:11 Dose: 100 mg Hydralazine HCl (Apresoline) 25 mg PO TID [facility] Last Admin: 06/15/18 13:50 Dose: 25 mg Insulin Human Lispro (Humalog Low) 0 units SC ACHS [facility]; Protocol Last Admin: 06/15/18 12:14 Dose: Not Given Losartan Potassium (Cozaar) 25 mg PO DAILY [facility] Last Admin: 06/15/18 10:11 Dose: 25 mg Metoclopramide HCl (Reglan) 5 mg PO Q6H PRN PRN Reason: Nausea/Vomiting Last Admin: 06/14/18 22:09 Dose: 5 mg Metoprolol Tartrate (Lopressor) 25 mg PO BID [facility] Last Admin: 06/15/18 10:11 Dose: 25 mg Ondansetron HCl (Zofran Inj) 4 mg IVP Q4 PRN PRN Reason: Nausea/Vomiting Last Admin: 06/15/18 13:50 Dose: 4 mg Oxycodone HCl (Oxycontin Extended Release Tab) 10 mg PO Q12 [facility] Stop: 06/18/18 10:01 Last Admin: 06/15/18 12:11 Dose: 10 mg Oxycodone/Acetaminophen (Percocet 5/325 Mg Tab) 1 tab PO Q6H PRN PRN Reason: Pain, moderate (4-7) Stop: 06/18/18 07:54 Last Admin: 06/15/18 10:11 Dose: 1 tab Sodium Hypochlorite (Dakins Solution 0.25%) 0 ml TOP DAILY [facility] Last Admin: 06/15/18 16:03 Dose: Not Given Zolpidem Tartrate (Ambien) 5 mg PO HS PRN; Protocol PRN Reason: Insomnia - Labs Labs: 06/15/18 07:15 06/15/18 07:15 - Constitutional Appears: Non-toxic, No Acute Distress - Head Exam Head Exam: ATRAUMATIC, NORMOCEPHALIC - Extremities Exam Additional comments: B/L Lower extremity focused exam: Vasc: DP and PT pulses non-palpable B/L. Temperature gradient warm to warm from proximal to distal. Cap refill < 3 sec to all remaining digits. Mild non-pitting edema noted to dorsum of right foot Ortho: R TMA appreciated Neuro: diminished protective sensation B/L, gross sensation intact Derm: Open ulceration at the plantar aspect of the right lateral midfoot; wound base is 60% necrotic, 20% granular and 20% fibrotic. Wound measures approxi mately 10cm x 8cm x 3cm. Tunneling and undermining appreciated. Positive probe to bone. positive drainage noted, positive malodor. Remaining sutures in place from TMA site with mild dehiscence appreciated. - Neurological Exam Neurological Exam: Alert, Awake, Oriented x3 - Psychiatric Exam Psychiatric exam: Normal Affect, Normal Mood Assessment and Plan - Assessment and Plan (Free Text) Assessment: 67 year old female patient s/p 6 weeks right TMA (DOS: 05/04/18) with subsequent non-healing ulceration and left heel ulceration; plan for surgery tomorrow Plan: Patient seen and evaluated at bedside Afebrile, absent leukocytosis Foot x-rays taken; no acute osteo, large soft tissue defect Blood cx;no growth after 4 days Local wound care; R: Dakins wet to dry, DSD. Patient to remain NWB to the right lower extremity ID consulted; reccs appreciated Vasc consulted; reccs appreciated- vascular intervention unsuccesful. Continue to wear multi-podus boots at all times while in bed Plan for wound debridement tomorrow, June 16 at 1:00 pm Please medically clear/optimize patient Please plan for dialysis early in the morning to avoid conflict with surgery time Will continue to follow
--- NOTE | 2018-06-16 00:35 | PN ---
DATE: 06/15/2018 SUBJECTIVE: The patient is seen in bed, in no acute distress. PHYSICAL EXAMINATION: VITAL SIGNS: Temperature is 98, blood pressure is 120/70, and respirations 16. HEENT: Unremarkable. NECK: Supple. LUNGS: Decreased breath sounds. HEART: Normal S1 and S2. ABDOMEN: Soft and nontender. EXTREMITIES: On examination of the stump, there is no change. LABORATORY DATA: Blood cultures show no growth. Dr. Kingsley Powers's note is reviewed. REVIEW OF ORDERS: Reveals the patient to be off antibiotics. ASSESSMENT AND PLAN: This is a 67-year-old female with super morbid obesity with status post transmetatarsal amputation; diabetic; the patient with renal failure, on hemodialysis; chronic ulcer with no evidence of active infection with the stump at this time necrotic area. Vascular workup in progress. Local wound care. We will follow with you. Haresh Cordon MD
[2018-06-16] MEDS: Insulin Lispro (humaLOG) LOW Coverage SC SCH ×4 (07:30→21:31)
[2018-06-16 08:03] LABS: HEMOGLOBIN 9.2 g/dL (12.0-16.0); MEAN CELL VOLUME 80.2 fl (80.0-105.0); MEAN CORPUSCULAR HGB CONC 31.2 g/dl (31.0-37.0); MEAN PLATELET VOLUME 9.2 fl (7.0-11.0); RBC 3.68 10^6/uL (3.5-6.1); RED CELL DISTRIBUTION WIDTH 20.1 % (11.5-14.5); WHITE BLOOD COUNT 7.4 10^3/uL (4.5-11.0)
[2018-06-16 08:18] LABS: ALB/GLOB RATIO 0.9 (1.1-1.8); ALBUMIN 3.4 g/dL (3.0-4.8); CALCIUM 8.1 mg/dL (8.4-10.5)
[2018-06-16] MEDS: Oxycodone/Acetaminophen 5/325 mg Tab PO PRN ×2 (08:54→17:48)
--- NOTE | 2018-06-16 09:18 | CP.PCM.PN ---
<Newton Holman - Last Filed: 06/16/18 13:16> Subjective - Date & Time of Evaluation Date of Evaluation: 06/16/18 Time of Evaluation: 09:14 - Subjective Subjective: Nephrology Progress Note (Dr. Siegel's Service): Patient seen and assessed in HD. No acute events noted overnight. Patient reports that constipation resolved yesterday afternoon without having to use an enema. Further 12 point ROS grossly unremarkable. Objective - Vital Signs/Intake and Output Vital Signs (last 24 hours): Temp Pulse Resp BP Pulse Ox 97.8 F 70 20 137/68 98 06/16/18 06:00 06/16/18 06:00 06/16/18 06:00 06/16/18 06:00 06/15/18 06:00 Intake and Output: 06/16/18 06/16/18 06:59 18:59 Intake Total 1020 Output Total 50 Balance 970 - Medications Medications: Current Medications Acetaminophen (Tylenol 325mg Tab) 650 mg PO Q4H PRN PRN Reason: Fever >100.4 F Last Admin: 06/12/18 10:50 Dose: 650 mg Alprazolam (Xanax) 0.25 mg PO TID PRN; Protocol PRN Reason: Anxiety Stop: 06/22/18 18:01 Last Admin: 06/15/18 18:14 Dose: 0.25 mg Aspirin (Aspirin Chewable) 81 mg PO DAILY [facility] Last Admin: 06/13/18 09:33 Dose: 81 mg Atorvastatin Calcium (Lipitor) 10 mg PO DIN [facility] Last Admin: 06/15/18 18:14 Dose: 10 mg Cinacalcet (Sensipar) 30 mg PO DAILY [facility] Clopidogrel Bisulfate (Plavix) 75 mg PO DAILY [facility] Last Admin: 06/13/18 09:34 Dose: 75 mg Docusate Sodium (Colace) 100 mg PO DAILY [facility] Last Admin: 06/15/18 10:11 Dose: 100 mg Hydralazine HCl (Apresoline) 25 mg PO TID [facility] Last Admin: 06/15/18 18:14 Dose: 25 mg Insulin Human Lispro (Humalog Low) 0 units SC ACHS [facility]; Protocol Last Admin: 06/15/18 22:43 Dose: Not Given Losartan Potassium (Cozaar) 25 mg PO DAILY [facility] Last Admin: 06/15/18 10:11 Dose: 25 mg Metoclopramide HCl (Reglan) 5 mg PO Q6H PRN PRN Reason: Nausea/Vomiting Last Admin: 06/14/18 22:09 Dose: 5 mg Metoprolol Tartrate (Lopressor) 25 mg PO BID [facility] Last Admin: 06/15/18 18:14 Dose: 25 mg Ondansetron HCl (Zofran Inj) 4 mg IVP Q4 PRN PRN Reason: Nausea/Vomiting Last Admin: 06/15/18 13:50 Dose: 4 mg Oxycodone HCl (Oxycontin Extended Release Tab) 10 mg PO Q12 [facility] Stop: 06/18/18 10:01 Last Admin: 06/15/18 22:44 Dose: 10 mg Oxycodone/Acetaminophen (Percocet 5/325 Mg Tab) 1 tab PO Q6H PRN PRN Reason: Pain, moderate (4-7) Stop: 06/18/18 07:54 Last Admin: 06/16/18 08:54 Dose: 1 tab Sodium Hypochlorite (Dakins Solution 0.25%) 0 ml TOP DAILY [facility] Last Admin: 06/15/18 16:03 Dose: Not Given Zolpidem Tartrate (Ambien) 5 mg PO HS PRN; Protocol PRN Reason: Insomnia Last Admin: 06/16/18 01:18 Dose: 5 mg - Labs Labs: 06/16/18 05:00 06/16/18 05:00 - Additional Findings Additional findings: - Constitutional Appears: Non-toxic, No Acute Distress - Head Exam Head Exam: ATRAUMATIC, NORMOCEPHALIC - Eye Exam Eye Exam: EOMI - ENT Exam ENT Exam: Mucous Membranes Moist - Neck Exam Neck Exam: Full ROM - Respiratory Exam Respiratory Exam: Clear to Ausculation Bilateral, NORMAL BREATHING PATTERN. absent: Wheezes, Respiratory Distress - Cardiovascular Exam Cardiovascular Exam: REGULAR RHYTHM, RRR - GI/Abdominal Exam GI & Abdominal Exam: Soft, Normal Bowel Sounds. absent: Tenderness - Extremities Exam Extremities Exam: absent: Pedal Edema Additional comments: RLE wound dressing c/d/i - Neurological Exam Neurological Exam: Alert, Awake, Oriented x3 - Psychiatric Exam Psychiatric exam: Normal Affect, Normal Mood - Skin Skin Exam: Dry, Warm Assessment and Plan - Assessment and Plan (Free Text) Assessment: 67 year old AA female with a past medical history significant for ESRD on HD, HTN, HLD, DM2 and anemia who presented with RLE infection. Plan: 1. ESRD on HD -Scheduled for HD with 3L UF today prior to RLE wound debridement with Podiatry -Electrolytes within normal limits and fluid status stable -Continue to avoid nephrotoxic agents and renally dose medications as indicated -Continue to monitor BUN, creatinine and eGFR with daily CMP's 2. Hypertensive CKD -Currently well controlled -Continue current medications as ordered 3. Anemia in CKD -Stable s/p one dose of Aranesp and one unit of pRBC's -Continue to monitor with daily CBC's 4. CKD Mineral Bone Disease -iPTH currently over suppressed -Holding home Sensipar -Will obtain repeat iPTH tomorrow in AM 5. Systolic CHF -Volume status stable currently -Continue to target adequate UF on HD 6. Intermittent Constipation -Resolved -Would recommend tap water enema's over phosphate containing fleet enema's if needed Patient seen and case discussed with attending, Dr. Siegel. Newton Holman PGY2 <Collin Siegel - Last Filed: 06/17/18 08:09> Objective - Vital Signs/Intake and Output Vital Signs (last 24 hours): Temp Pulse Resp BP Pulse Ox 98.1 F 91 H 19 137/63 100 06/17/18 06:00 06/17/18 06:00 06/17/18 00:01 06/17/18 06:00 06/16/18 16:50 Intake and Output: 06/17/18 06/17/18 06:59 18:59 Intake Total 480 Output Total 50 Balance 430 - Medications Medications: Current Medications Acetaminophen (Tylenol 325mg Tab) 650 mg PO Q4H PRN PRN Reason: Pain, Mild (1-3) Alprazolam (Xanax) 0.25 mg PO TID PRN; Protocol PRN Reason: Anxiety Stop: 06/22/18 18:01 Last Admin: 06/15/18 18:14 Dose: 0.25 mg Aspirin (Aspirin Chewable) 81 mg PO DAILY [facility] Last Admin: 06/13/18 09:33 Dose: 81 mg Atorvastatin Calcium (Lipitor) 10 mg PO DIN [facility] Last Admin: 06/16/18 18:54 Dose: 10 mg Cinacalcet (Sensipar) 30 mg PO DAILY [facility] Clopidogrel Bisulfate (Plavix) 75 mg PO DAILY [facility] Last Admin: 06/13/18 09:34 Dose: 75 mg Docusate Sodium (Colace) 100 mg PO DAILY [facility] Last Admin: 06/16/18 10:00 Dose: Not Given Hydralazine HCl (Apresoline) 25 mg PO TID [facility] Last Admin: 06/16/18 18:54 Dose: 25 mg Insulin Human Lispro (Humalog Low) 0 units SC [facility]; Protocol Last Admin: 06/16/18 21:31 Dose: Not Given Losartan Potassium (Cozaar) 25 mg PO DAILY [facility] Last Admin: 06/16/18 10:00 Dose: Not Given Metoclopramide HCl (Reglan) 5 mg PO Q6H PRN PRN Reason: Nausea/Vomiting Last Admin: 06/14/18 22:09 Dose: 5 mg Metoprolol Tartrate (Lopressor) 25 mg PO BID [facility] Last Admin: 06/16/18 18:54 Dose: 25 mg Ondansetron HCl (Zofran Inj) 4 mg IVP Q4 PRN PRN Reason: Nausea/Vomiting Last Admin: 06/16/18 21:20 Dose: 4 mg Oxycodone HCl (Oxycontin Extended Release Tab) 10 mg PO Q12 [facility] Stop: 06/18/18 10:01 Last Admin: 06/16/18 21:20 Dose: 10 mg Oxycodone/Acetaminophen (Percocet 5/325 Mg Tab) 1 tab PO Q4H PRN PRN Reason: Pain, moderate (4-7) Stop: 06/19/18 15:45 Last Admin: 06/16/18 17:48 Dose: 1 tab Oxycodone/Acetaminophen (Percocet 5/325 Mg Tab) 2 tab PO Q4H PRN PRN Reason: Pain, severe (8-10) Stop: 06/19/18 15:45 Last Admin: 06/17/18 05:20 Dose: 2 tab Sodium Hypochlorite (Dakins Solution 0.25%) 0 ml TOP DAILY [facility] Last Admin: 06/16/18 10:00 Dose: Not Given Zolpidem Tartrate (Ambien) 5 mg PO HS PRN; Protocol PRN Reason: Insomnia Last Admin: 06/16/18 21:53 Dose: 5 mg - Labs Labs: 06/16/18 05:00 03/13/19 05:00 Assessment and Plan (1) ESRD (end stage renal disease) on dialysis Status: Chronic (2) Hypertensive CKD, ESRD on dialysis Status: Chronic (3) Anemia in CKD (chronic kidney disease) Status: Acute (4) CHF (congestive heart failure) Status: Chronic Attending/Attestation - Attestation I have personally seen and examined this patient.: Yes I have fully participated in the care of the patient.: Yes I have reviewed all pertinent clinical information, including history, physical exam and plan: Yes Notes (Text): Patient seen and examined; I agree with the resident's note as above with the following additions/edits: Providing nephrology coverage for Dr. Uribe: Patient seen prior to R TMA site wound debridement procedure today; tolerated HD well, UF goal decreased to 2.5L to avoid lroena-op hypotension; CHF w/ evidence of diastolic dysfunction and pulm htn; relatively stable volume and resp status; has chronic lower ext edema b/l; will continue to aim for adequate UF on HD; HTN of ESRD; BP relatively controlled, continue current meds; CKD mineral bone disorder; PTH oversuppressed, borderline hypocalcemia, sensipar and calcitriol being held, repeating PTH level; Anemia of CKD, hgb stable but below goal; will re-dose aranesp on Thursday if patient remains admitted.
[2018-06-16] MEDS: Dakin's Topical 0.25%-Half Strength (480 ml) TOP SCH (10:00)
[2018-06-16] MEDS: oxyCODONE 10 mg ER Tab (oxyCONTIN) PO SCH ×2 (10:00→21:20)
--- NOTE | 2018-06-16 12:34 | PN ---
DATE: 06/16/2018 SUBJECTIVE: I saw her in the dialysis this morning, we had nice long talk. She is doing little bit better. She went to the . She slept well. She is in better spirits, overall less pain. She is going for a right foot surgery with Dr. Hickey. She is status post Interventional Radiology procedure which could not put a stent in distally, hopefully that foot will heal. PHYSICAL EXAMINATION: GENERAL: She is alert, comfortable and smiling. VITAL SIGNS: She has 97.8 temperature, 70 pulse, 137/68 blood pressure and 20 respiratory rate. HEENT: Head is atraumatic and normocephalic. HEART: Regular rate. LUNGS: Decreased breath sounds. ABDOMEN: Soft, obese and nontender. EXTREMITIES: Right foot is bandaged, status post transmetatarsal amputation and also bone which has be removed by Podiatry today. MEDICATIONS: She is on Ambien, Apresoline, aspirin, Colace, Cozaar, Dakin's, insulin, Lipitor, Lopressor, OxyContin, oxycodone, Plavix, Reglan, Sensipar, Tylenol, Xanax and Zofran. LABORATORY DATA: She has a 134 sodium, potassium 4.3, BUN is 21, creatinine is 5.5 on dialysis. GFR is 8, sugar is 84, calcium is 8.1, total bilirubin is 0.4, AST is 55, ALT is 21, alkaline phosphatase 181 and total protein is 7.3. She is being seen by Infectious Disease, Podiatry and Cardiology. PLAN: The plan is for surgery for today, hopefully she will do well and should be going back [facility] to continue her subacute rehab. Nir Cox DO MTDJesus Manuel
[2018-06-16] MEDS ORDERED: Lidocaine 2% Inj (20ml) ONE (13:18)
[2018-06-16] MEDS ORDERED: Bupivacaine 0.5% 50 ML IJ ONE (13:18)
[2018-06-16] MEDS ORDERED: Propofol 10 mg/ml Inj (20 ML) ONE ×4 (13:53→15:02)
[2018-06-16] MEDS ORDERED: Lidocaine 1% Inj (20ml) ONE (14:02)
--- NOTE | 2018-06-16 15:34 | PCM.SURG1 ---
Surgeon's Initial Post Op Note - Surgeon's Notes Surgeon: Dr. Brian Hickey DPM Pump Oiler: Dr. Amber Gary PGY1 Type of Anesthesia: IV Sedation, Local Pre-Operative Diagnosis: Right non healing ulceration Operative Findings: See dictation. I: 20 cc 1: lidocaine plain, .5% marcaine plain. M: 1/2 inch packing Post-Operative Diagnosis: Same Operation Performed: Right wound debridement with removal of all nonviable bone and soft tissue Specimen/Specimens Removed: Bone from right foot Estimated Blood Loss: EBL {In ML}: 10 Blood Products Given: N/A Drains Used: No Drains Post-Op Condition: Good Date of Surgery/Procedure: 06/16/18 Time of Surgery/Procedure: 15:34
[2018-06-16] MEDS ORDERED: Oxycodone/Acetaminophen 5/325 mg Tab PO PRN (15:44)
[2018-06-16] MEDS: Bupivacaine 0.25% 50 ML INJ IJ ONE (15:45)
--- NOTE | 2018-06-16 15:55 | PN ---
DATE: 06/16/2018 CARDIOLOGY FOLLOWUP SUBJECTIVE: The patient's dyspnea is well controlled after dialysis. OBJECTIVE: VITAL SIGNS: Blood pressure varies from 80-120, heart rates in the 70s. NECK: Negative JVD. LUNGS: Without rales. HEART: S1 and S2. EXTREMITIES: Status post digital surgery, right lower extremity. LABORATORY DATA: Hemoglobin is 9.2. Chemistries are unchanged. IMPRESSION: 1. End-stage renal disease. 2. Coronary artery disease. 3. Peripheral vascular disease. 4. Diabetes mellitus. PLAN: Given these findings, the patient is hemodynamically improved after dialysis. The patient is for debridement of the wound on the lower extremity today. Kingsley Powers MD
[2018-06-16] MEDS: HYDROmorphone 0.5 mg/0.5 ml ISec IVP PRN ×2 (16:10→16:25)
[2018-06-16] MEDS ORDERED: HYDROmorphone 0.5 mg/0.5 ml ISec ONE (16:30)
[2018-06-16] MEDS ORDERED: Oxycodone/Acetaminophen 5/325 mg Tab ONE (17:50)
--- NOTE | 2018-06-16 22:09 | PN ---
DATE: 06/16/2018 SUBJECTIVE: The patient was seen earlier this morning in room 261, bed 1. PHYSICAL EXAMINATION GENERAL: The patient is seen awake in bed, in no acute distress, comfortable, no fevers, no chills. VITAL SIGNS: Temperature is 98, blood pressure is 138/48, respiratory rate is 16, heart rate is 73. HEENT: Unremarkable. NECK: Supple. LUNGS: Decreased breath sounds. HEART: Normal S1 and S2. ABDOMEN: Soft, nontender. LABORATORY DATA: Reveals the patient's white count of 7.4, hemoglobin of 9, and platelets of 397. BUN of 21, creatinine of 5.5. Microbiology is noted. The blood cultures are negative. Review of orders reveal the patient to be off of antibiotics. ASSESSMENT AND PLAN: A 67-year-old morbidly obese female with a body mass index of 42 and a history of transmetatarsal amputation, diabetic, renal failure on hemodialysis, chronic ulcer. The patient is scheduled for surgery today, right heel debridement with a biopsy. We will check on the wound culture, biopsy culture, and biopsy pathology. Vascular workup in progress. Haresh Cordon MD
--- NOTE | 2018-06-17 08:41 | PN ---
DATE: 06/17/2018 SUBJECTIVE: She had surgery yesterday. She is in pain and the surgery apparently went well. She is sitting up in bed. She is ready for breakfast. She wants to know when she is going to go back to [facility] for subacute rehab. PHYSICAL EXAMINATION VITAL SIGNS: She has a 98.1 temperature, 98 pulse, 137/63 blood pressure, 19 respiratory rate, 100% O2 sat on 3 liters. HEENT: Head is atraumatic, normocephalic. CARDIOPULMONARY: Heart is regular rate. LUNGS: Decreased breath sounds but clear. ABDOMEN: Soft, morbidly obese. EXTREMITIES: Okay. The right foot is bandaged. MEDICATIONS: She is on Ambien, Apresoline, aspirin, Colace, Cozaar, Dakin's solutions, insulin, Lipitor, Lopressor, oxycodone and OxyContin for her chronic pain and her pain, Plavix, Reglan, Sensipar, Tylenol, Xanax, and Zofran. ASSESSMENT AND PLAN: Unfortunately Dr. Kingsley Wood could not stent underneath the knee in the right foot. I am hoping that this will heal. As per Dr. Hickey, I would discharge her to [facility] for physical therapy and care. Apparently not on any IV antibiotics at this time. If it is okay with Podiatry, I will discharge her to [facility] for continued subacute rehabilitation and wound care of the right foot. Nir Cox DO
--- NOTE | 2018-06-17 08:47 | CP.PCM.PN ---
Subjective - Date & Time of Evaluation Date of Evaluation: 06/17/18 Time of Evaluation: 08:46 - Subjective Subjective: Nephrology Progress Note (Dr. Siegel's Service): Patient seen and assessed at bedside. No acute events noted overnight. Patient had RLE wound debridement yesterday with podiatry without complications. Patient endorsing dizziness this morning and was prescribed a medication for this by her PMD. Further 12 point ROS reviewed and is unremarkable at this time. Objective - Vital Signs/Intake and Output Vital Signs (last 24 hours): Temp Pulse Resp BP Pulse Ox 98.1 F 91 H 19 137/63 100 06/17/18 06:00 06/17/18 06:00 06/17/18 00:01 06/17/18 06:00 06/16/18 16:50 Intake and Output: 06/17/18 06/17/18 06:59 18:59 Intake Total 480 Output Total 50 Balance 430 - Medications Medications: Current Medications Acetaminophen (Tylenol 325mg Tab) 650 mg PO Q4H PRN PRN Reason: Pain, Mild (1-3) Alprazolam (Xanax) 0.25 mg PO TID PRN; Protocol PRN Reason: Anxiety Stop: 06/22/18 18:01 Last Admin: 06/15/18 18:14 Dose: 0.25 mg Aspirin (Aspirin Chewable) 81 mg PO DAILY [facility] Last Admin: 06/13/18 09:33 Dose: 81 mg Atorvastatin Calcium (Lipitor) 10 mg PO DIN [facility] Last Admin: 06/16/18 18:54 Dose: 10 mg Cinacalcet (Sensipar) 30 mg PO DAILY [facility] Clopidogrel Bisulfate (Plavix) 75 mg PO DAILY [facility] Last Admin: 06/13/18 09:34 Dose: 75 mg Docusate Sodium (Colace) 100 mg PO DAILY [facility] Last Admin: 06/16/18 10:00 Dose: Not Given Hydralazine HCl (Apresoline) 25 mg PO TID [facility] Last Admin: 06/16/18 18:54 Dose: 25 mg Insulin Human Lispro (Humalog Low) 0 units SC [facility]; Protocol Last Admin: 06/16/18 21:31 Dose: Not Given Losartan Potassium (Cozaar) 25 mg PO DAILY [facility] Last Admin: 06/16/18 10:00 Dose: Not Given Metoclopramide HCl (Reglan) 5 mg PO Q6H PRN PRN Reason: Nausea/Vomiting Last Admin: 06/14/18 22:09 Dose: 5 mg Metoprolol Tartrate (Lopressor) 25 mg PO BID [facility] Last Admin: 06/16/18 18:54 Dose: 25 mg Ondansetron HCl (Zofran Inj) 4 mg IVP Q4 PRN PRN Reason: Nausea/Vomiting Last Admin: 06/16/18 21:20 Dose: 4 mg Oxycodone HCl (Oxycontin Extended Release Tab) 10 mg PO Q12 [facility] Stop: 06/18/18 10:01 Last Admin: 06/16/18 21:20 Dose: 10 mg Oxycodone/Acetaminophen (Percocet 5/325 Mg Tab) 1 tab PO Q4H PRN PRN Reason: Pain, moderate (4-7) Stop: 06/19/18 15:45 Last Admin: 06/16/18 17:48 Dose: 1 tab Oxycodone/Acetaminophen (Percocet 5/325 Mg Tab) 2 tab PO Q4H PRN PRN Reason: Pain, severe (8-10) Stop: 06/19/18 15:45 Last Admin: 06/17/18 05:20 Dose: 2 tab Sodium Hypochlorite (Dakins Solution 0.25%) 0 ml TOP DAILY [facility] Last Admin: 06/16/18 10:00 Dose: Not Given Zolpidem Tartrate (Ambien) 5 mg PO HS PRN; Protocol PRN Reason: Insomnia Last Admin: 06/16/18 21:53 Dose: 5 mg - Labs Labs: 06/16/18 05:00 06/16/18 05:00 - Additional Findings Additional findings: - Constitutional Appears: Non-toxic, No Acute Distress - Head Exam Head Exam: ATRAUMATIC, NORMOCEPHALIC - Eye Exam Eye Exam: EOMI - ENT Exam ENT Exam: Mucous Membranes Moist - Neck Exam Neck Exam: Full ROM - Respiratory Exam Respiratory Exam: Clear to Ausculation Bilateral, NORMAL BREATHING PATTERN. absent: Wheezes, Respiratory Distress - Cardiovascular Exam Cardiovascular Exam: REGULAR RHYTHM, RRR - GI/Abdominal Exam GI & Abdominal Exam: Soft, Normal Bowel Sounds. absent: Tenderness - Extremities Exam Extremities Exam: absent: Pedal Edema Additional comments: RLE wound dressing c/d/i - Neurological Exam Neurological Exam: Alert, Awake, Oriented x3 - Psychiatric Exam Psychiatric exam: Normal Affect, Normal Mood - Skin Skin Exam: Dry, Warm Assessment and Plan - Assessment and Plan (Free Text) Assessment: 67 year old AA female with a past medical history significant for ESRD on HD, HTN, HLD, DM2 and anemia who presented with RLE infection. Plan: 1. ESRD on HD -S/P HD with 2.5L UF yesterday; Next HD on Thursday (06/18) should patient still be admitted -Electrolytes within normal limits and fluid status stable -Continue to avoid nephrotoxic agents and renally dose medications as indicated -Continue to monitor BUN, creatinine and eGFR with daily CMP's 2. Hypertensive CKD -Currently well controlled -Continue current medications as ordered 3. Anemia in CKD -Stable s/p one dose of Aranesp and one unit of pRBC's -Hemoglobin stable but below goal; Will re-dose aranesp on Thursday with HD -Continue to monitor with daily CBC's 4. CKD Mineral Bone Disease -iPTH currently over suppressed -Holding home Sensipar and Calcitriol -Repeat iPTH pending 5. Diastolic CHF -Volume status stable currently -Continue to target adequate UF on HD 6. Pulmonary Hypertension -Volume/Respiratory status stable currently -Continue to target adequate UF on HD Patient seen and case discussed with attending, Dr. Siegel. Newton Holman PGY2
[2018-06-17 09:14] LABS: HEMOGLOBIN 9.3 g/dL (12.0-16.0); MEAN CELL VOLUME 81.4 fl (80.0-105.0); MEAN CORPUSCULAR HEMOGLOBIN 25.4 pg (25.0-35.0); MEAN CORPUSCULAR HGB CONC 31.2 g/dl (31.0-37.0); MEAN PLATELET VOLUME 8.9 fl (7.0-11.0); RBC 3.66 10^6/uL (3.5-6.1); RED CELL DISTRIBUTION WIDTH 20.2 % (11.5-14.5); WHITE BLOOD COUNT 9.9 10^3/uL (4.5-11.0)
[2018-06-17 09:25] LABS: ALB/GLOB RATIO 0.9 (1.1-1.8); ALBUMIN 3.4 g/dL (3.0-4.8); CALCIUM 8.3 mg/dL (8.4-10.5)
--- NOTE | 2018-06-17 10:39 | CP.PCM.PN ---
Subjective - Date & Time of Evaluation Date of Evaluation: 06/17/18 Time of Evaluation: 10:36 - Subjective Subjective: Podiatry Consult Note: Dr. Brian Hickey Patient seen and evaluated at bedside POD#1 R revisional TMA with closure. Patient resting comfortably and in NAD. She states that she has a headache this morning, however does not report any pain to her lower extremity. She denies any acute events overnight stating she slept through the night. Denies nausea/vomiting/fever/shortness of breath/chest pain. Objective - Vital Signs/Intake and Output Vital Signs (last 24 hours): Temp Pulse Resp BP Pulse Ox 98.1 F 91 H 19 137/63 100 06/17/18 06:00 06/17/18 06:00 06/17/18 00:01 06/17/18 06:00 06/16/18 16:50 Intake and Output: 06/17/18 06/17/18 06:59 18:59 Intake Total 480 Output Total 50 Balance 430 - Medications Medications: Current Medications Acetaminophen (Tylenol 325mg Tab) 650 mg PO Q4H PRN PRN Reason: Pain, Mild (1-3) Alprazolam (Xanax) 0.25 mg PO TID PRN; Protocol PRN Reason: Anxiety Stop: 06/22/18 18:01 Last Admin: 06/15/18 18:14 Dose: 0.25 mg Aspirin (Aspirin Chewable) 81 mg PO DAILY [facility] Last Admin: 06/13/18 09:33 Dose: 81 mg Atorvastatin Calcium (Lipitor) 10 mg PO DIN [facility] Last Admin: 06/16/18 18:54 Dose: 10 mg Cinacalcet (Sensipar) 30 mg PO DAILY [facility] Clopidogrel Bisulfate (Plavix) 75 mg PO DAILY [facility] Last Admin: 06/13/18 09:34 Dose: 75 mg Docusate Sodium (Colace) 100 mg PO DAILY [facility] Last Admin: 06/16/18 10:00 Dose: Not Given Hydralazine HCl (Apresoline) 25 mg PO TID [facility] Last Admin: 06/16/18 18:54 Dose: 25 mg Insulin Human Lispro (Humalog Low) 0 units SC A[facility]S [facility]; Protocol Last Admin: 06/16/18 21:31 Dose: Not Given Losartan Potassium (Cozaar) 25 mg PO DAILY [facility] Last Admin: 06/16/18 10:00 Dose: Not Given Meclizine HCl (Antivert) 12.5 mg PO TID PRN PRN Reason: Dizziness Metoclopramide HCl (Reglan) 5 mg PO Q6H PRN PRN Reason: Nausea/Vomiting Last Admin: 06/14/18 22:09 Dose: 5 mg Metoprolol Tartrate (Lopressor) 25 mg PO BID [facility] Last Admin: 06/16/18 18:54 Dose: 25 mg Ondansetron HCl (Zofran Inj) 4 mg IVP Q4 PRN PRN Reason: Nausea/Vomiting Last Admin: 06/16/18 21:20 Dose: 4 mg Oxycodone HCl (Oxycontin Extended Release Tab) 10 mg PO Q12 [facility] Stop: 06/18/18 10:01 Last Admin: 06/16/18 21:20 Dose: 10 mg Oxycodone/Acetaminophen (Percocet 5/325 Mg Tab) 1 tab PO Q4H PRN PRN Reason: Pain, moderate (4-7) Stop: 06/19/18 15:45 Last Admin: 06/16/18 17:48 Dose: 1 tab Oxycodone/Acetaminophen (Percocet 5/325 Mg Tab) 2 tab PO Q4H PRN PRN Reason: Pain, severe (8-10) Stop: 06/19/18 15:45 Last Admin: 06/17/18 05:20 Dose: 2 tab Sodium Hypochlorite (Dakins Solution 0.25%) 0 ml TOP DAILY [facility] Last Admin: 06/16/18 10:00 Dose: Not Given Zolpidem Tartrate (Ambien) 5 mg PO HS PRN; Protocol PRN Reason: Insomnia Last Admin: 06/16/18 21:53 Dose: 5 mg - Labs Labs: 06/17/18 08:30 06/17/18 08:30 - Constitutional Appears: Non-toxic, No Acute Distress - Head Exam Head Exam: ATRAUMATIC, NORMOCEPHALIC - Extremities Exam Additional comments: Vascular: DP and PT pulses non-palpable B/L. Temperature gradient warm to warm from proximal to distal. Cap refill < 3 sec to all remaining digits. Mild non- pitting edema noted to dorsum of right foot Ortho: R TMA appreciated Neuro: diminished protective sensation B/L, gross sensation intact Derm: Surgical site skin edges well coapted, no signs of dehiscence at this time.Two plantar ulcerations appreciated at this time, with tunneling appreciated, mixed fibrous-granular base with mild serous drainage. Xerosis appreciated to R foot - Neurological Exam Neurological Exam: Alert - Psychiatric Exam Psychiatric exam: Normal Affect, Normal Mood Assessment and Plan - Assessment and Plan (Free Text) Assessment: Patient seen and evaluated POD#1 R revisional TMA with closure. Plan: Patient seen and evaluated at bedside Afebrile, absent leukocytosis Foot x-rays taken; no acute osteo, large soft tissue defect Blood cx;no growth after 5 days Intra-op bone biopsy and bone cuture taken; results pending IV abx per ID reccs Patient to remain NWB to the right lower extremity Xeroform, DSD, applied to RLE incision site, packing advanced from ulcerations Continue to wear multi-podus boots at all times while in bed Upon d/c patient to follow with Dr. Brian Hickey as outpatient
[2018-06-17] MEDS: oxyCODONE 10 mg ER Tab (oxyCONTIN) PO SCH ×2 (10:40→22:03)
[2018-06-17] MEDS: Dakin's Topical 0.25%-Half Strength (480 ml) TOP SCH (10:45)
[2018-06-17] MEDS: Insulin Lispro (humaLOG) LOW Coverage SC SCH ×3 (10:45→23:48)
--- NOTE | 2018-06-17 12:10 | PN ---
DATE: 06/17/2018 SUBJECTIVE: The patient tolerated the debridement well yesterday. No issues. No chest pain or shortness of breath. PHYSICAL EXAMINATION: VITAL SIGNS: Blood pressure 115/59, heart rate in the 70s. NECK: Negative JVD. LUNGS: Without rales. HEART: S1, S2. EXTREMITIES: Without edema. The right foot is bandaged. LABORATORIES: Reviewed. The hemoglobin is 9.3. IMPRESSION: 1. End-stage renal disease. 2. Peripheral vascular disease. 3. Coronary artery disease. PLAN: Given these findings, the patient is hemodynamically stable. We will check her echocardiogram today. Kingsley Powers MD
--- NOTE | 2018-06-17 12:26 | PN ---
DATE: 06/17/2018 SUBJECTIVE: The patient is seen earlier today in 261, bed 1. The patient is awake and alert. No fevers and chills. PHYSICAL EXAMINATION: VITAL SIGNS: Temperature is 98, blood pressure is 122/70, respiratory rate of 18, heart rate of 80. HEENT: Unremarkable. NECK: Supple. LUNGS: Have decreased breath sounds. HEART: Normal S1, S2. ABDOMEN: Soft, nontender. LABORATORY EXAMINATION: Reveals the patient's white count is 9.9, hemoglobin of 9, platelets of 312. Chemistries reveals a BUN of 17, creatinine of 4.8, alk phos is 184. Troponin is 0.14 and a CPK is 56. Case discussed with Dr. Benitez, progress note from Dr. Benitez is noted and appreciated. ASSESSMENT AND PLAN: This is a is 67-year-old morbidly obese female with BMI of 42, history of transmetatarsal amputation, diabetic, renal failure on hemodialysis, chronic ulcer. The patient was taken to the OR at the right wound debridement and biopsy. The OR cultures and the pathology is pending and we will start daptomycin and meropenem, pending OR cultures and pathology. CPK is within normal limits. We will discontinue the atorvastatin because of combination to a drug interaction. We will follow with you. Duration of antibiotics will be determined by the pathology report and we will check the OR cultures. The patient had been off of antibiotics. Haresh Cordon MD
--- NOTE | 2018-06-17 12:46 | RAD ---
Date of service: 06/17/2018 PROCEDURE: Right Foot Radiographs. HISTORY: Post op foot xrays COMPARISON: Right foot radiographs 06/10/2018. FINDINGS: BONES: Prior amputation of the majority of the foot again evident with the navicular bone and posterior portion of the cuboid bone remaining. Further amputation of the cuboid and remaining cuneiform bones is identified in the interval with removal of solitary compression screw. Residual fixation hardware unchanged at the navicular bone. Postoperative emphysematous changes are seen at the inferolateral hindfoot. Skin steve are identified postoperatively predominantly at the dorsal hindfoot with a few plantar hindfoot skin steve evident as well. No definitive acute fracture or dislocation appreciable. JOINTS: Degenerative tibiotalar and talocalcaneal joints identified. SOFT TISSUES: As above. OTHER FINDINGS: None. IMPRESSION: Status post limited further amputation of the midfoot with minimal residual. Hindfoot anatomy appears stable. Postop changes as discussed above.
--- NOTE | 2018-06-17 13:25 | CP.PCM.PCO ---
Physician Communication Note - Physician Communication Note Physician Communication Note: awaiting wound cx and pathology s/p R TMA revision. IV per ID recs.
[2018-06-17] MEDS: Oxycodone/Acetaminophen 5/325 mg Tab PO PRN (20:16)
--- NOTE | 2018-06-18 00:13 | CARD ---
APPROVED REPORT Date of service: 06/17/2018 EXAM: Two-dimensional and M-mode echocardiogram with Doppler and color Doppler. INDICATION Cardiac Disease: CAD 2D DIMENSIONS Left Atrium (2D)5.5 (1.6-4.0cm)IVSd1.3 (0.7-1.1cm) LVDd5.4 (3.9-5.9cm)PWd1.3 (0.7-1.1cm) LVDs3.9 (2.5-4.0cm)FS (%) 28.1 % LVEF (%)54.0 (>50%) M-Mode DIMENSIONS Aortic Root2.70 (2.2-3.7cm)Aortic Cusp Exc.1.60 (1.5-2.0cm) Aortic Valve AoV Peak Ccjffoqi429.0cm/sAoV VTI46.9cmAO Peak GR.14mmHg LVOT Peak Bpxsszxc839.0cm/sLVOT VTI25.80cmAO Mean GR.9mmHg Mitral Valve MV E Xehgibvr95.0cm/sMV A Fmlwdxuj216.0cm/sE/A ratio0.8 TDI Lateral E' Peak V8.29cm/sMedial E' Peak V5.46cm/sE/Lateral E'9.3 E/Medial E'14.1 Pulmonary Valve PV Peak Xfpjmogw66.0cm/sPV Peak Grad.2mmHg Tricuspid Valve TR Peak Raclmwyk949se/sRAP KLDCLBBF22gqXnOX Peak Gr.40mmHg [id number] LEFT VENTRICLE The left ventricle is normal size. There is borderline to mild concentric left ventricular hypertrophy. The left ventricular function is normal. The left ventricular ejection fraction is within the normal range. There is normal LV segmental wall motion. Transmitral Doppler flow pattern is Grade I-abnormal relaxation pattern. RIGHT VENTRICLE The right ventricle is normal size. There is normal right ventricular wall thickness. The right ventricular systolic function is normal. ATRIA The left atrium is moderately dilated. The right atrium is mildly dilated. AORTIC VALVE The aortic valve is mildly sclerotic. No aortic regurgitation is present. There is no aortic valvular stenosis. MITRAL VALVE The mitral valve is moderately thickened. Mitral regurgitation is mild to moderate. There is no mitral valve stenosis. TRICUSPID VALVE There is mild tricuspid regurgitation. There is moderate pulmonary hypertension. PULMONIC VALVE There is trace pulmonic valvular regurgitation. GREAT VESSELS The aortic root is normal in size. The IVC is normal in size and collapses >50% with inspiration. <Conclusion> There is borderline to mild concentric left ventricular hypertrophy. The left ventricular function is normal. The left ventricular ejection fraction is within the normal range. There is normal LV segmental wall motion. Transmitral Doppler flow pattern is Grade I-abnormal relaxation pattern. Mitral regurgitation is mild to moderate. There is mild tricuspid regurgitation. There is moderate pulmonary hypertension.
[2018-06-18] MEDS: Insulin Lispro (humaLOG) LOW Coverage SC SCH ×4 (07:54→21:47)
[2018-06-18 08:48] LABS: HEMOGLOBIN 8.8 g/dL (12.0-16.0); MEAN CELL VOLUME 81.1 fl (80.0-105.0); MEAN CORPUSCULAR HEMOGLOBIN 24.9 pg (25.0-35.0); MEAN CORPUSCULAR HGB CONC 30.7 g/dl (31.0-37.0); MEAN PLATELET VOLUME 9.2 fl (7.0-11.0); RBC 3.54 10^6/uL (3.5-6.1); RED CELL DISTRIBUTION WIDTH 20.3 % (11.5-14.5)
[2018-06-18 09:21] LABS: CALCIUM 8.5 mg/dL (8.4-10.5)
[2018-06-18] MEDS: oxyCODONE 10 mg ER Tab (oxyCONTIN) PO SCH (10:00)
[2018-06-18] MEDS ORDERED: Darbepoetin Alfa 100 mcg/ml Inj IVP ONE ×4 (10:17→11:30)
[2018-06-18] MEDS ORDERED: Darbepoetin Alfa 25 mcg/ml Inj IVP ONE ×2 (10:30→11:30)
--- NOTE | 2018-06-18 12:28 | CP.PCM.PN ---
Subjective - Date & Time of Evaluation Date of Evaluation: 06/18/18 Time of Evaluation: 12:25 - Subjective Subjective: Nephrology Progress Note (Dr. Siegel's Service): Patient seen and assessed at bedside in HD. No acute events noted overnight. Patient awaiting results of cultures from RLE debridement before placement can be decided. Currently, patient denies any complaints. Further 12 point ROS reviewed and is unremarkable at this time. Objective - Vital Signs/Intake and Output Vital Signs (last 24 hours): Temp Pulse Resp BP Pulse Ox 98.2 F 70 20 130/59 L 96 06/18/18 06:00 06/18/18 06:00 06/18/18 06:00 06/18/18 06:00 06/18/18 06:00 Intake and Output: 06/18/18 06/18/18 06:59 18:59 Intake Total 360 Output Total 100 Balance 260 - Medications Medications: Current Medications Acetaminophen (Tylenol 325mg Tab) 650 mg PO Q4H PRN PRN Reason: Pain, Mild (1-3) Alprazolam (Xanax) 0.25 mg PO TID PRN; Protocol PRN Reason: Anxiety Stop: 06/22/18 18:01 Last Admin: 06/15/18 18:14 Dose: 0.25 mg Aspirin (Aspirin Chewable) 81 mg PO DAILY [facility] Last Admin: 06/13/18 09:33 Dose: 81 mg Cinacalcet (Sensipar) 30 mg PO DAILY [facility] Clopidogrel Bisulfate (Plavix) 75 mg PO DAILY [facility] Last Admin: 06/13/18 09:34 Dose: 75 mg Docusate Sodium (Colace) 100 mg PO DAILY [facility] Last Admin: 06/17/18 10:40 Dose: 100 mg Hydralazine HCl (Apresoline) 25 mg PO TID [facility] Last Admin: 06/18/18 10:00 Dose: Not Given Daptomycin 620 mg/ Sodium (Chloride) 100 mls @ 200 mls/hr IV Q48H [facility]; Protocol Stop: 07/15/18 13:01 Last Admin: 06/17/18 14:52 Dose: 200 mls/hr Meropenem 250 mg/ Sodium (Chloride) 100 mls @ 100 mls/hr IVPB Q12H [facility]; Protocol Stop: 07/15/18 11:01 Last Admin: 06/17/18 22:02 Dose: 100 mls/hr Insulin Human Lispro (Humalog Low) 0 units SC ACHS [facility]; Protocol Last Admin: 06/18/18 07:54 Dose: Not Given Losartan Potassium (Cozaar) 25 mg PO DAILY [facility] Last Admin: 06/17/18 10:41 Dose: 25 mg Meclizine HCl (Antivert) 12.5 mg PO TID PRN PRN Reason: Dizziness Last Admin: 06/17/18 10:41 Dose: 12.5 mg Metoclopramide HCl (Reglan) 5 mg PO Q6H PRN PRN Reason: Nausea/Vomiting Last Admin: 06/14/18 22:09 Dose: 5 mg Metoprolol Tartrate (Lopressor) 25 mg PO BID [facility] Last Admin: 06/18/18 10:00 Dose: Not Given Ondansetron HCl (Zofran Inj) 4 mg IVP Q4 PRN PRN Reason: Nausea/Vomiting Last Admin: 06/17/18 18:47 Dose: 4 mg Oxycodone/Acetaminophen (Percocet 5/325 Mg Tab) 1 tab PO Q4H PRN PRN Reason: Pain, moderate (4-7) Stop: 06/19/18 15:45 Last Admin: 06/17/18 20:16 Dose: 1 tab Oxycodone/Acetaminophen (Percocet 5/325 Mg Tab) 2 tab PO Q4H PRN PRN Reason: Pain, severe (8-10) Stop: 06/19/18 15:45 Last Admin: 06/17/18 05:20 Dose: 2 tab Sodium Hypochlorite (Dakins Solution 0.25%) 0 ml TOP DAILY [facility] Last Admin: 06/17/18 10:45 Dose: Not Given Zolpidem Tartrate (Ambien) 5 mg PO HS PRN; Protocol PRN Reason: Insomnia Last Admin: 06/17/18 22:03 Dose: 5 mg - Labs Labs: 06/18/18 08:30 06/18/18 08:30 - Additional Findings Additional findings: - Constitutional Appears: Non-toxic, No Acute Distress - Head Exam Head Exam: ATRAUMATIC, NORMOCEPHALIC - Eye Exam Eye Exam: EOMI - ENT Exam ENT Exam: Mucous Membranes Moist - Neck Exam Neck Exam: Full ROM - Respiratory Exam Respiratory Exam: Clear to Ausculation Bilateral, NORMAL BREATHING PATTERN. absent: Wheezes, Respiratory Distress - Cardiovascular Exam Cardiovascular Exam: REGULAR RHYTHM, RRR - GI/Abdominal Exam GI & Abdominal Exam: Soft, Normal Bowel Sounds. absent: Tenderness - Extremities Exam Extremities Exam: absent: Pedal Edema Additional comments: RLE wound dressing c/d/i - Neurological Exam Neurological Exam: Alert, Awake, Oriented x3 - Psychiatric Exam Psychiatric exam: Normal Affect, Normal Mood - Skin Skin Exam: Dry, Warm Assessment and Plan - Assessment and Plan (Free Text) Assessment: 67 year old AA female with a past medical history significant for ESRD on HD, HTN, HLD, DM2 and anemia who presented with RLE infection. Plan: 1. ESRD on HD -HD today with 3.0L UF -Electrolytes within normal limits and fluid status stable -Continue to avoid nephrotoxic agents and renally dose medications as indicated -Continue to monitor BUN, creatinine and eGFR with daily CMP's 2. Hypertensive CKD -Currently well controlled -Continue current medications as ordered 3. Anemia in CKD -Stable s/p one dose of Aranesp and one unit of pRBC's -Hemoglobin stable but below goal; Will give one dose of 125mcg Aranesp today with HD -Continue to monitor with daily CBC's 4. CKD Mineral Bone Disease -iPTH currently over suppressed -Holding home Sensipar and Calcitriol -Repeat iPTH pending 5. Diastolic CHF -Volume status stable currently -Continue to target adequate UF on HD 6. Pulmonary Hypertension -Volume/Respiratory status stable currently -Continue to target adequate UF on HD Patient seen and case discussed with attending, Dr. Siegel. Newton Holman PGY2
--- NOTE | 2018-06-18 12:52 | PN ---
DATE: 06/18/2018 SUBJECTIVE: The patient is in dialysis. She is comfortable. PHYSICAL EXAMINATION: VITAL SIGNS: Blood pressure 130/60, the heart rate is in the 70s. NECK: Negative JVD. LUNGS: Without rales. HEART: Reveal S1, S2. EXTREMITIES: Without change. LABORATORY DATA: Hemoglobin is 8.8, potassium is 4.2. Echocardiogram reveals good LV function with moderate pulmonary hypertension. IMPRESSION: 1. End-stage renal disease. 2. Peripheral vascular disease. 3. Good left ventricular function. 4. Coronary artery disease. 5. Left ventricular hypertrophy. 6. Moderate pulmonary hypertension. PLAN: Given these findings, the patient is hemodynamically stable. We will discontinue telemetry. Kingsley Powers MD
--- NOTE | 2018-06-18 13:19 | DS ---
HISTORY OF PRESENT ILLNESS: She had a good night last night. She is in good spirits. She is in dialysis. She had right foot infection and she had a right foot surgery to remove bone. She has PVD, end-stage renal disease with dialysis, obesity, diabetes. She is doing okay. She is in good spirits. She wants to go to [facility]. She will do physical therapy. Awaiting culture results and antibiotics as per Infectious Disease. She is being seen by Infectious Disease, Podiatry, and Cardiology and hopefully she will do well and hopefully I will discharge her this afternoon. She is currently on Ambien, Antivert, Apresoline, aspirin, Colace, Cozaar, Dakin's, daptomycin, insulin, Lopressor, Merrem OxyContin, oxycodone, Plavix, Reglan, Sensipar, Tylenol, Xanax and Zofran. PHYSICAL EXAMINATION: VITAL SIGNS: Temperature 98.2, 78 pulse, 130/59 blood pressure, 20 respiratory rate, 96% O2 sat on room air. HEENT: Head is atraumatic, normocephalic. She will yesterday, not sure why. HEART: Regular rate. LUNGS: Decreased breath sounds, but clear. ABDOMEN: Soft, obese, nontender. EXTREMITIES: Right foot is wrapped up in bandages. Status post a TMA and status post bone removal. She does have a wound there and getting treatments. Hopefully, we will get her to [facility] for IV antibiotics and continued care. She also needs physical therapy there. Nir Cox DO [facility]
[2018-06-18] MEDS: Dakin's Topical 0.25%-Half Strength (480 ml) TOP SCH (14:21)
--- NOTE | 2018-06-18 15:16 | CP.PCM.PN ---
<Amber Gary - Last Filed: 06/18/18 15:16> Subjective - Date & Time of Evaluation Date of Evaluation: 06/18/18 Time of Evaluation: 15:15 - Subjective Subjective: Podiatry Consult Note: Dr. Brian Hickey Patient seen and evaluated at bedside POD#2 R revisional TMA with closure. Patient resting comfortably and in NAD. She denies any pain to the surgical site and states that she has continued to keep it elevated at this time. Denies nausea/vomiting/fever/shortness of breath/chest pain. Objective - Vital Signs/Intake and Output Vital Signs (last 24 hours): Temp Pulse Resp BP Pulse Ox 98.2 F 80 20 130/55 L 96 06/18/18 06:00 06/18/18 14:20 06/18/18 06:00 06/18/18 14:20 06/18/18 06:00 Intake and Output: 06/18/18 06/18/18 06:59 18:59 Intake Total 360 Output Total 100 Balance 260 - Medications Medications: Current Medications Acetaminophen (Tylenol 325mg Tab) 650 mg PO Q4H PRN PRN Reason: Pain, Mild (1-3) Alprazolam (Xanax) 0.25 mg PO TID PRN; Protocol PRN Reason: Anxiety Stop: 06/22/18 18:01 Last Admin: 06/15/18 18:14 Dose: 0.25 mg Aspirin (Aspirin Chewable) 81 mg PO DAILY [facility] Last Admin: 06/18/18 14:20 Dose: 81 mg Cinacalcet (Sensipar) 30 mg PO DAILY [facility] Clopidogrel Bisulfate (Plavix) 75 mg PO DAILY [facility] Last Admin: 06/18/18 14:22 Dose: 75 mg Docusate Sodium (Colace) 100 mg PO DAILY [facility] Last Admin: 06/18/18 14:20 Dose: 100 mg Hydralazine HCl (Apresoline) 25 mg PO TID [facility] Last Admin: 06/18/18 14:19 Dose: 25 mg Daptomycin 620 mg/ Sodium (Chloride) 100 mls @ 200 mls/hr IV Q48H [facility]; Protocol Stop: 07/15/18 13:01 Last Admin: 06/17/18 14:52 Dose: 200 mls/hr Meropenem 250 mg/ Sodium (Chloride) 100 mls @ 100 mls/hr IVPB Q12H [facility]; Protocol Stop: 07/15/18 11:01 Last Admin: 06/18/18 14:21 Dose: 100 mls/hr Insulin Human Lispro (Humalog Low) 0 units SC ACHS [facility]; Protocol Last Admin: 06/18/18 11:30 Dose: Not Given Losartan Potassium (Cozaar) 25 mg PO DAILY [facility] Last Admin: 06/18/18 14:20 Dose: 25 mg Meclizine HCl (Antivert) 12.5 mg PO TID PRN PRN Reason: Dizziness Last Admin: 06/17/18 10:41 Dose: 12.5 mg Metoclopramide HCl (Reglan) 5 mg PO Q6H PRN PRN Reason: Nausea/Vomiting Last Admin: 06/14/18 22:09 Dose: 5 mg Metoprolol Tartrate (Lopressor) 25 mg PO BID [facility] Last Admin: 06/18/18 10:00 Dose: Not Given Ondansetron HCl (Zofran Inj) 4 mg IVP Q4 PRN PRN Reason: Nausea/Vomiting Last Admin: 06/17/18 18:47 Dose: 4 mg Oxycodone/Acetaminophen (Percocet 5/325 Mg Tab) 1 tab PO Q4H PRN PRN Reason: Pain, moderate (4-7) Stop: 06/19/18 15:45 Last Admin: 06/17/18 20:16 Dose: 1 tab Oxycodone/Acetaminophen (Percocet 5/325 Mg Tab) 2 tab PO Q4H PRN PRN Reason: Pain, severe (8-10) Stop: 06/19/18 15:45 Last Admin: 06/17/18 05:20 Dose: 2 tab Sodium Hypochlorite (Dakins Solution 0.25%) 0 ml TOP DAILY [facility] Last Admin: 06/18/18 14:21 Dose: Not Given Zolpidem Tartrate (Ambien) 5 mg PO HS PRN; Protocol PRN Reason: Insomnia Last Admin: 06/17/18 22:03 Dose: 5 mg - Labs Labs: 06/18/18 08:30 06/18/18 08:30 - Constitutional Appears: Non-toxic, No Acute Distress - Head Exam Head Exam: ATRAUMATIC, NORMOCEPHALIC - Extremities Exam Additional comments: Vascular: DP and PT pulses non-palpable B/L. Temperature gradient warm to warm from proximal to distal. Cap refill < 3 sec to all remaining digits. Mild non- pitting edema noted to dorsum of right foot Ortho: R TMA appreciated Neuro: diminished protective sensation B/L, gross sensation intact Derm: Surgical site skin edges well coapted, no signs of dehiscence at this time.Two plantar ulcerations appreciated at this time, with tunneling appreciated, mixed fibrous-granular base with mild serous drainage. Xerosis appreciated to R foot - Neurological Exam Neurological Exam: Alert, Awake, Oriented x3 Assessment and Plan - Assessment and Plan (Free Text) Assessment: Patient seen and evaluated POD#2 R revisional TMA with closure. Plan: Patient seen and evaluated at bedside Afebrile, absent leukocytosis Foot x-rays taken; no acute osteo, large soft tissue defect Blood cx;no growth after 5 days Intra-op bone biopsy; acute OM Bone Culture; Gram neg mckenzie, gram + cocci IV abx per ID reccs Patient to remain NWB to the right lower extremity Wound care: packing, xeroform, DSD Local wound care orders for d/c to [facility]: - Advance packing daily until completely removed. Please apply betadine to surgical incision. Apply xeroform, dry sterile dressing, ABD, kerlix, and light giancarlo to R surgical site. Continue to wear multi-podus boots at all times while in bed Upon d/c patient to follow with Dr. Brian Hickey as outpatient <Brian Hickey - Last Filed: 06/18/18 18:17> Objective - Vital Signs/Intake and Output Vital Signs (last 24 hours): Temp Pulse Resp BP Pulse Ox 97.0 F L 78 18 115/49 L 95 06/18/18 12:30 06/18/18 17:52 06/18/18 12:30 06/18/18 17:52 06/18/18 12:30 Intake and Output: 06/18/18 06/18/18 06:59 18:59 Intake Total 360 Output Total 100 Balance 260 - Medications Medications: Current Medications Acetaminophen (Tylenol 325mg Tab) 650 mg PO Q4H PRN PRN Reason: Pain, Mild (1-3) Alprazolam (Xanax) 0.25 mg PO TID PRN; Protocol PRN Reason: Anxiety Stop: 06/22/18 18:01 Last Admin: 06/15/18 18:14 Dose: 0.25 mg Aspirin (Aspirin Chewable) 81 mg PO DAILY [facility] Last Admin: 06/18/18 14:20 Dose: 81 mg Cinacalcet (Sensipar) 30 mg PO DAILY [facility] Clopidogrel Bisulfate (Plavix) 75 mg PO DAILY [facility] Last Admin: 06/18/18 14:22 Dose: 75 mg Docusate Sodium (Colace) 100 mg PO DAILY [facility] Last Admin: 06/18/18 14:20 Dose: 100 mg Hydralazine HCl (Apresoline) 25 mg PO TID [facility] Last Admin: 06/18/18 17:51 Dose: 25 mg Daptomycin 620 mg/ Sodium (Chloride) 100 mls @ 200 mls/hr IV Q48H [facility]; Protocol Stop: 07/15/18 13:01 Last Admin: 06/17/18 14:52 Dose: 200 mls/hr Meropenem 250 mg/ Sodium (Chloride) 100 mls @ 100 mls/hr IVPB Q12H [facility]; Protocol Stop: 07/15/18 11:01 Last Admin: 06/18/18 14:21 Dose: 100 mls/hr Insulin Human Lispro (Humalog Low) 0 units SC ACHS [facility]; Protocol Last Admin: 06/18/18 17:12 Dose: Not Given Losartan Potassium (Cozaar) 25 mg PO DAILY [facility] Last Admin: 06/18/18 14:20 Dose: 25 mg Meclizine HCl (Antivert) 12.5 mg PO TID PRN PRN Reason: Dizziness Last Admin: 06/17/18 10:41 Dose: 12.5 mg Metoclopramide HCl (Reglan) 5 mg PO Q6H PRN PRN Reason: Nausea/Vomiting Last Admin: 06/14/18 22:09 Dose: 5 mg Metoprolol Tartrate (Lopressor) 25 mg PO BID [facility] Last Admin: 06/18/18 17:52 Dose: 25 mg Ondansetron HCl (Zofran Inj) 4 mg IVP Q4 PRN PRN Reason: Nausea/Vomiting Last Admin: 06/17/18 18:47 Dose: 4 mg Oxycodone/Acetaminophen (Percocet 5/325 Mg Tab) 1 tab PO Q4H PRN PRN Reason: Pain, moderate (4-7) Stop: 06/19/18 15:45 Last Admin: 06/18/18 15:40 Dose: 1 tab Oxycodone/Acetaminophen (Percocet 5/325 Mg Tab) 2 tab PO Q4H PRN PRN Reason: Pain, severe (8-10) Stop: 06/19/18 15:45 Last Admin: 06/17/18 05:20 Dose: 2 tab Sodium Hypochlorite (Dakins Solution 0.25%) 0 ml TOP DAILY [facility] Last Admin: 06/18/18 14:21 Dose: Not Given Zolpidem Tartrate (Ambien) 5 mg PO HS PRN; Protocol PRN Reason: Insomnia Last Admin: 06/17/18 22:03 Dose: 5 mg - Labs Labs: 06/18/18 08:30 06/18/18 08:30 Assessment and Plan - Assessment and Plan (Free Text) Plan: Above noted .Procedure is limb salvage in nature . I will follow at sub-acute center .Patient may require BKA if area fails to heal and she is aware . /Dr Jin
[2018-06-18] MEDS: Oxycodone/Acetaminophen 5/325 mg Tab PO PRN (15:40)
--- NOTE | 2018-06-19 02:07 | PN ---
DATE: 06/18/2018 SUBJECTIVE: The patient is in bed, in room 572, bed 1. At this time, the patient was seen earlier this morning in 261, bed 1. She is tolerating antibiotics well. No nausea, no vomiting. No diarrhea rather. No fevers or chills. OBJECTIVE: VITAL SIGNS: Temperature is 98, blood pressure is 115/40, respiratory rate of 18. HEENT: Unremarkable. NECK: Supple. LUNGS: Have decreased breath sounds. HEART: Normal S1, S2. ABDOMEN: Soft, nontender. LABORATORY EXAMINATION: Reveals a white count of 8, BUN of 30, creatinine of 6.3. Microbiology reveals a gram-negative mckenzie and gram-positive cocci. Review of orders reveals the patient to be on daptomycin and meropenem. ASSESSMENT AND PLAN: A 67-year-old morbidly obese female with a BMI of 42, history of transmetatarsal amputation, diabetic, renal failure and hemodialysis, chronic ulcer to the right. The patient was taken to the OR for right wound debridement and biopsy. OR culture and Pathology is pending. As per Podiatry, the pathology report appears to have osteomyelitis. Review of the pathology shows marked acute inflammation of the bone with acute osteomyelitis. Will need antibiotics at least for 4 to 6 weeks with a weekly CBC, SMA-18, sed rate, C-reactive protein. Because of patient's renal disease, currently on daptomycin and meropenem. Awaiting for the identification of the organism and sensitivity of the organism. We will follow with you. Haresh Cordon MD
[2018-06-19] MEDS: Oxycodone/Acetaminophen 5/325 mg Tab PO PRN (04:54)
[2018-06-19 08:31] LABS: HEMOGLOBIN 8.9 g/dL (12.0-16.0); MEAN CELL VOLUME 81.1 fl (80.0-105.0); MEAN CORPUSCULAR HEMOGLOBIN 24.4 pg (25.0-35.0); MEAN CORPUSCULAR HGB CONC 30.1 g/dl (31.0-37.0); MEAN PLATELET VOLUME 9.1 fl (7.0-11.0); RBC 3.65 10^6/uL (3.5-6.1); RED CELL DISTRIBUTION WIDTH 20.1 % (11.5-14.5); WHITE BLOOD COUNT 7.2 10^3/uL (4.5-11.0)
[2018-06-19] MEDS: Insulin Lispro (humaLOG) LOW Coverage SC SCH ×4 (08:39→22:39)
[2018-06-19 09:08] LABS: ALB/GLOB RATIO 0.8 (1.1-1.8); ALBUMIN 3.2 g/dL (3.0-4.8); CALCIUM 8.7 mg/dL (8.4-10.5)
--- NOTE | 2018-06-19 09:21 | PN ---
DATE: 06/19/2018 SUBJECTIVE: We are waiting for cultures come back on the foot to know exactly what antibiotics to put her on. She is resting comfortably in bed. She actually slept fairly well last night. She is in good spirits. She wants her foot to heal. She is worried about it because they could not put a stent in the lower part of the leg that will not heal. We discussed that she might need an amputation, but right now we are trying to help the foot to see if we can get it to heal. PHYSICAL EXAMINATION VITAL SIGNS: She has a 98.9 temperature, 83 pulse, 146/71 blood pressure, 19 respiratory rate, and 96% O2 sat on room air. HEENT: Head; atraumatic, normocephalic. CARDIOPULMONARY: Heart is a regular rate. LUNGS: Decreased breath sounds ABDOMEN: Soft, obese, nontender. EXTREMITIES: The right foot is bandaged. MEDICATIONS: She is on Ambien, Antivert, Apresoline, aspirin, Colace, Cozaar, Dakin's solution, daptomycin, insulin, Lopressor, Merrem, Percocet, Plavix, Reglan, Sensipar, Tylenol, Xanax and Zofran. ASSESSMENT AND PLAN: She has multiple problems. She has a right foot infection status post surgery with bone resection, status post tonsillectomy and adenoidectomy before that, end-stage renal disease with hemodialysis. She is morbidly obese. She is a diabetic with hypertension and chronic pain. Continue aggressive treatment care. Get labs tomorrow. Nir Cox DO
[2018-06-19] MEDS: Dakin's Topical 0.25%-Half Strength (480 ml) TOP SCH (11:24)
--- NOTE | 2018-06-19 13:07 | CP.PCM.PN ---
Subjective - Date & Time of Evaluation Date of Evaluation: 06/19/18 Time of Evaluation: 13:04 - Subjective Subjective: Podiatry Progress Note - Dr. Brian Hickey 67F seen and evaluated POD#3 R revisional TMA. Patient resting comfortably, NAD. No acute events overnight. Patient denies any pain to right foot. Patient inquiring if she can start ambulating on RLE. Denies n/v/f/d/c/sob/jeffries/cp. Objective - Vital Signs/Intake and Output Vital Signs (last 24 hours): Temp Pulse Resp BP Pulse Ox 98.9 F 72 19 107/46 L 96 06/19/18 07:54 06/19/18 11:24 06/19/18 07:54 06/19/18 11:24 06/19/18 07:54 Intake and Output: 06/19/18 06/19/18 06:59 18:59 Intake Total 120 Balance 120 - Medications Medications: Current Medications Acetaminophen (Tylenol 325mg Tab) 650 mg PO Q4H PRN PRN Reason: Pain, Mild (1-3) Last Admin: 06/19/18 11:34 Dose: 650 mg Alprazolam (Xanax) 0.25 mg PO TID PRN; Protocol PRN Reason: Anxiety Stop: 06/22/18 18:01 Last Admin: 06/15/18 18:14 Dose: 0.25 mg Aspirin (Aspirin Chewable) 81 mg PO DAILY [facility] Last Admin: 06/19/18 11:11 Dose: 81 mg Cinacalcet (Sensipar) 30 mg PO DAILY [facility] Clopidogrel Bisulfate (Plavix) 75 mg PO DAILY [facility] Last Admin: 06/19/18 11:11 Dose: 75 mg Docusate Sodium (Colace) 100 mg PO DAILY [facility] Last Admin: 06/19/18 11:10 Dose: 100 mg Hydralazine HCl (Apresoline) 25 mg PO TID [facility] Last Admin: 06/19/18 11:24 Dose: Not Given Daptomycin 620 mg/ Sodium (Chloride) 100 mls @ 200 mls/hr IV Q48H [facility]; Protocol Stop: 07/15/18 13:01 Last Admin: 06/17/18 14:52 Dose: 200 mls/hr Meropenem 250 mg/ Sodium (Chloride) 100 mls @ 100 mls/hr IVPB Q12H [facility]; Protocol Stop: 07/15/18 11:01 Last Admin: 06/19/18 11:12 Dose: 100 mls/hr Insulin Human Lispro (Humalog Low) 0 units SC ACHS [facility]; Protocol Last Admin: 06/19/18 11:59 Dose: Not Given Losartan Potassium (Cozaar) 25 mg PO DAILY [facility] Last Admin: 06/19/18 11:24 Dose: Not Given Meclizine HCl (Antivert) 12.5 mg PO TID PRN PRN Reason: Dizziness Last Admin: 06/17/18 10:41 Dose: 12.5 mg Metoclopramide HCl (Reglan) 5 mg PO Q6H PRN PRN Reason: Nausea/Vomiting Last Admin: 06/14/18 22:09 Dose: 5 mg Metoprolol Tartrate (Lopressor) 25 mg PO BID [facility] Last Admin: 06/19/18 11:23 Dose: Not Given Ondansetron HCl (Zofran Inj) 4 mg IVP Q4 PRN PRN Reason: Nausea/Vomiting Last Admin: 06/17/18 18:47 Dose: 4 mg Oxycodone/Acetaminophen (Percocet 5/325 Mg Tab) 1 tab PO Q4H PRN PRN Reason: Pain, moderate (4-7) Stop: 06/19/18 15:45 Last Admin: 06/19/18 04:54 Dose: 1 tab Oxycodone/Acetaminophen (Percocet 5/325 Mg Tab) 2 tab PO Q4H PRN PRN Reason: Pain, severe (8-10) Stop: 06/19/18 15:45 Last Admin: 06/17/18 05:20 Dose: 2 tab Sodium Hypochlorite (Dakins Solution 0.25%) 0 ml TOP DAILY [facility] Last Admin: 06/19/18 11:24 Dose: Not Given Zolpidem Tartrate (Ambien) 5 mg PO HS PRN; Protocol PRN Reason: Insomnia Last Admin: 06/18/18 22:10 Dose: 5 mg - Labs Labs: 06/19/18 08:25 06/19/18 08:25 - Constitutional Appears: Non-toxic, No Acute Distress - Extremities Exam Additional comments: Vascular: DP and PT pulses non-palpable B/L. Temperature gradient warm to warm from proximal to distal. Cap refill < 3 sec to all remaining digits. Mild non- pitting edema noted to dorsum of right foot Ortho: R TMA appreciated Neuro: diminished protective sensation B/L, gross sensation intact Derm: Surgical site skin edges well coapted, no signs of dehiscence at this time.Two plantar ulcerations appreciated at this time, with tunneling appreciated, mixed fibrous-granular base with mild serous drainage. Xerosis appreciated to R foot - Neurological Exam Neurological Exam: Alert, Awake, Oriented x3 - Psychiatric Exam Psychiatric exam: Normal Affect, Normal Mood Assessment and Plan - Assessment and Plan (Free Text) Assessment: Patient seen and evaluated POD#3 R revisional TMA with closure. Plan: Patient seen and evaluated at bedside alongside attending, Dr. Hickey Foot x-rays taken; no acute osteo, large soft tissue defect Blood cx;no growth after 5 days Intra-op bone biopsy; acute OM Bone Culture reveals growth of pseudomonas aeruginosa, VRE Continue abx per ID Activity: Strict NWB RLE, OOB to commode only Continue local wound care: 04/09" packing, DSD, LUIS Continue multipodus boots at all times in bed Upon discharge, patient to follow up with Dr. Brian Hickey as outpatient Podiatry will continue to follow Local wound care orders for d/c to [facility]: - Advance packing daily until completely removed. Please apply betadine to surgical incision. Apply xeroform, dry sterile dressing, ABD, kerlix, and light luis to R surgical site. Continue to wear multi-podus boots at all times while in bed
--- NOTE | 2018-06-19 23:54 | CP.PCM.PN ---
Subjective - Date & Time of Evaluation Date of Evaluation: 06/19/18 Time of Evaluation: 10:00 - Subjective Subjective: Providing nephrology coverage for Dr. Uribe: 67 yo F w/ pmh of htn, dm, diastolic CHF w/ pulm htn, ESRD on HD, admitted with R TMA wound infection, s/p debridement, found to have OM; Reports feeling well; denies any dyspnea; tolerating diet; Objective - Vital Signs/Intake and Output Vital Signs (last 24 hours): Temp Pulse Resp BP Pulse Ox 98.7 F 102 H 20 132/87 94 L 06/19/18 22:00 06/19/18 22:00 06/19/18 22:00 06/19/18 22:00 06/19/18 22:00 Intake and Output: 06/19/18 06/20/18 18:59 06:59 Intake Total 300 Balance 300 - Medications Medications: Current Medications Acetaminophen (Tylenol 325mg Tab) 650 mg PO Q4H PRN PRN Reason: Pain, Mild (1-3) Last Admin: 06/19/18 20:23 Dose: 650 mg Alprazolam (Xanax) 0.25 mg PO TID PRN; Protocol PRN Reason: Anxiety Stop: 06/22/18 18:01 Last Admin: 06/15/18 18:14 Dose: 0.25 mg Aspirin (Aspirin Chewable) 81 mg PO DAILY [facility] Last Admin: 06/19/18 11:11 Dose: 81 mg Cinacalcet (Sensipar) 30 mg PO DAILY [facility] Clopidogrel Bisulfate (Plavix) 75 mg PO DAILY [facility] Last Admin: 06/19/18 15:33 Dose: 75 mg Docusate Sodium (Colace) 100 mg PO DAILY [facility] Last Admin: 06/19/18 11:10 Dose: 100 mg Hydralazine HCl (Apresoline) 25 mg PO TID [facility] Last Admin: 06/19/18 17:40 Dose: 25 mg Daptomycin 620 mg/ Sodium (Chloride) 100 mls @ 200 mls/hr IV Q48H [facility]; Protocol Stop: 07/15/18 13:01 Last Admin: 06/19/18 14:42 Dose: 200 mls/hr Meropenem 250 mg/ Sodium (Chloride) 100 mls @ 100 mls/hr IVPB Q12H [facility]; Pr otocol Stop: 07/15/18 11:01 Last Admin: 06/19/18 23:38 Dose: 100 mls/hr Insulin Human Lispro (Humalog Low) 0 units SC ACHS [facility]; Protocol Last Admin: 06/19/18 22:39 Dose: Not Given Losartan Potassium (Cozaar) 25 mg PO DAILY [facility] Last Admin: 06/19/18 11:24 Dose: Not Given Meclizine HCl (Antivert) 12.5 mg PO TID PRN PRN Reason: Dizziness Last Admin: 06/17/18 10:41 Dose: 12.5 mg Metoclopramide HCl (Reglan) 5 mg PO Q6H PRN PRN Reason: Nausea/Vomiting Last Admin: 06/14/18 22:09 Dose: 5 mg Metoprolol Tartrate (Lopressor) 25 mg PO BID [facility] Last Admin: 06/19/18 17:40 Dose: 25 mg Ondansetron HCl (Zofran Inj) 4 mg IVP Q4 PRN PRN Reason: Nausea/Vomiting Last Admin: 06/19/18 14:12 Dose: 4 mg Sodium Hypochlorite (Dakins Solution 0.25%) 0 ml TOP DAILY [facility] Last Admin: 06/19/18 11:24 Dose: Not Given Zolpidem Tartrate (Ambien) 5 mg PO HS PRN; Protocol PRN Reason: Insomnia Last Admin: 06/19/18 23:37 Dose: 5 mg - Labs Labs: 06/19/18 08:25 06/19/18 08:25 - Constitutional Appears: Non-toxic, No Acute Distress - Eye Exam Eye Exam: Normal appearance. absent: Scleral icterus - Respiratory Exam Respiratory Exam: Clear to Ausculation Bilateral. absent: Respiratory Distress - Cardiovascular Exam Cardiovascular Exam: RRR, +S1, +S2 - GI/Abdominal Exam GI & Abdominal Exam: Soft. absent: Distended, Tenderness - Extremities Exam Additional comments: mild lower leg edema b/l (improved); - Neurological Exam Neurological Exam: Alert, Awake - Psychiatric Exam Psychiatric exam: Normal Mood. absent: Agitated - Skin Skin Exam: Warm. absent: Cyanosis Assessment and Plan (1) ESRD (end stage renal disease) on dialysis Assessment & Plan: Stable volume and electrolyte status; next HD Thursday per routine; Status: Chronic (2) Hypertensive CKD, ESRD on dialysis Assessment & Plan: BP on lower end of normal, will hold hydralazine and re-assess; Status: Chronic (3) Anemia in CKD (chronic kidney disease) Assessment & Plan: Hgb well below goal in the setting of active infection (OM); increased dose of aranesp given yesterday, monitor; Status: Acute (4) CHF (congestive heart failure) Assessment & Plan: Relativley euvolemic on exam, will continue to maintain with UF on HD; Status: Chronic
--- NOTE | 2018-06-20 00:14 | PN ---
DATE: 06/19/2018 SUBJECTIVE: The patient is in bed, no acute distress, nontoxic. The patient was seen earlier this morning. PHYSICAL EXAMINATION: VITAL SIGNS: Temperature is 98, blood pressure is 107/40. HEENT: Unremarkable. NECK: Supple. LUNGS: Have decreased breath sounds. HEART: Normal S1, S2. ABDOMEN: Soft. LABORATORY DATA: Reveals a white count of 7.2, hemoglobin of 8, platelets of 293. Chemistries are noted. Review of the culture reveals Pseudomonas and VRE from the deep tissue culture. Review of orders reveals the patient to be on daptomycin and meropenem. ASSESSMENT AND PLAN: A 67-year-old obese female with a body mass index of 42, history of transmetatarsal amputation, diabetic, renal failure, hemodialysis, chronic ulcer and status post operating room wound debridement, biopsy with osteomyelitis. Will need 4 to 6 weeks of daptomycin and meropenem. Check the complete blood count, SMA-18, sedimentation rate, C-reactive protein, and creatine phosphokinase once weekly. We will follow with you. Haresh Cordon MD
[2018-06-20] MEDS: Insulin Lispro (humaLOG) LOW Coverage SC SCH ×4 (07:13→22:27)
[2018-06-20 08:10] LABS: HEMOGLOBIN 8.9 g/dL (12.0-16.0); MEAN CELL VOLUME 80.6 fl (80.0-105.0); MEAN CORPUSCULAR HEMOGLOBIN 24.3 pg (25.0-35.0); MEAN CORPUSCULAR HGB CONC 30.2 g/dl (31.0-37.0); MEAN PLATELET VOLUME 9.5 fl (7.0-11.0); RBC 3.66 10^6/uL (3.5-6.1); RED CELL DISTRIBUTION WIDTH 20.7 % (11.5-14.5); WHITE BLOOD COUNT 6.1 10^3/uL (4.5-11.0)
[2018-06-20 08:30] LABS: ALB/GLOB RATIO 0.8 (1.1-1.8); ALT/SGPT < 6 U/L (7-56); AST/SGOT 39 U/L (14-36); BLOOD UREA NITROGEN 31 mg/dL (7-21); CALCIUM 8.5 mg/dL (8.4-10.5); GFR NON-AFRICAN AMERICAN 7
[2018-06-20] MEDS ORDERED: Bisacodyl 5mg EC Tab PO ONE (11:05)
[2018-06-20] MEDS: Dakin's Topical 0.25%-Half Strength (480 ml) TOP SCH (11:14)
--- NOTE | 2018-06-20 15:00 | PN ---
DATE: 06/20/2018 SUBJECTIVE: The patient is in bed, in no acute distress, nontoxic. PHYSICAL EXAMINATION VITAL SIGNS: Temperature is 98, blood pressure is 130/80 and respiratory rate of 18. HEENT: Unremarkable. NECK: Supple. LUNGS: Have decreased breath sounds. HEART: Normal S1 and S2. ABDOMEN: Soft and nontender. LABORATORY DATA: Reveals a white count of 6.1, hemoglobin of 8 and platelets of 339. BUN of 31 and creatinine of 5.8. ASSESSMENT AND PLAN: A 67-year-old obese female with a body mass index of 42, history of transmetatarsal amputation, diabetes, renal failure on hemodialysis, chronic ulcer status post operating room wound debridement, biopsy consistent with osteomyelitis. Will need 4 to 6 weeks of antibiotics, currently on daptomycin and meropenem. The patient does have pseudomonas and vancomycin resistant Enterococci from bone deep tissue culture. Would recommend a weekly CBC, SMA-18, sed rate, C-reactive protein and CPK. The dosing of daptomycin is every 48 hours, because of renal disease and dosing of meropenem is also changed because of renal disease. Haresh Cordon MD
--- NOTE | 2018-06-20 15:14 | CP.PCM.PN ---
Subjective - Date & Time of Evaluation Date of Evaluation: 06/20/18 Time of Evaluation: 15:13 - Subjective Subjective: Podiatry Progress Note - Dr. Brian Hickey 67F seen and evaluated POD#4 R revisional TMA. Patient resting comfortably, NAD. Family present at bedside. No acute events overnight. No pain to right foot today; patient states she has remained NWB with her RLE elevated. Denies n/v/f/d/c/sob/jeffries/cp. Objective - Vital Signs/Intake and Output Vital Signs (last 24 hours): Temp Pulse Resp BP Pulse Ox 97.8 F 74 19 136/64 98 06/20/18 06:00 06/20/18 10:41 06/20/18 06:00 06/20/18 10:41 06/20/18 06:00 Intake and Output: 06/20/18 06/20/18 06:59 18:59 Intake Total 640 Balance 640 - Medications Medications: Current Medications Acetaminophen (Tylenol 325mg Tab) 650 mg PO Q4H PRN PRN Reason: Pain, Mild (1-3) Last Admin: 06/20/18 04:48 Dose: 650 mg Alprazolam (Xanax) 0.25 mg PO TID PRN; Protocol PRN Reason: Anxiety Stop: 06/22/18 18:01 Last Admin: 06/15/18 18:14 Dose: 0.25 mg Aspirin (Aspirin Chewable) 81 mg PO DAILY [facility] Last Admin: 06/20/18 10:40 Dose: 81 mg Cinacalcet (Sensipar) 30 mg PO DAILY [facility] Clopidogrel Bisulfate (Plavix) 75 mg PO DAILY [facility] Last Admin: 06/20/18 10:40 Dose: 75 mg Docusate Sodium (Colace) 100 mg PO DAILY [facility] Last Admin: 06/20/18 10:39 Dose: 100 mg Doxercalciferol (Hectorol) 2 mcg IV MWF [facility] Hydralazine HCl (Apresoline) 25 mg PO TID [facility] Last Admin: 06/19/18 17:40 Dose: 25 mg Daptomycin 620 mg/ Sodium (Chloride) 100 mls @ 200 mls/hr IV Q48H [facility]; Protocol Stop: 07/15/18 13:01 Last Admin: 06/19/18 14:42 Dose: 200 mls/hr Meropenem 250 mg/ Sodium (Chloride) 100 mls @ 100 mls/hr IVPB Q12H [facility]; Protocol Stop: 07/15/18 11:01 Last Admin: 06/20/18 10:40 Dose: 100 mls/hr Insulin Human Lispro (Humalog Low) 0 units SC ACHS [facility]; Protocol Last Admin: 06/20/18 10:57 Dose: Not Given Ketorolac Tromethamine (Toradol) 30 mg IVP Q6H PRN PRN Reason: Pain, moderate (4-7) Losartan Potassium (Cozaar) 25 mg PO DAILY [facility] Last Admin: 06/20/18 10:41 Dose: 25 mg Meclizine HCl (Antivert) 12.5 mg PO TID PRN PRN Reason: Dizziness Last Admin: 06/17/18 10:41 Dose: 12.5 mg Metoclopramide HCl (Reglan) 5 mg PO Q6H PRN PRN Reason: Nausea/Vomiting Last Admin: 06/14/18 22:09 Dose: 5 mg Metoprolol Tartrate (Lopressor) 25 mg PO BID [facility] Last Admin: 06/20/18 10:41 Dose: 25 mg Ondansetron HCl (Zofran Inj) 4 mg IVP Q4 PRN PRN Reason: Nausea/Vomiting Last Admin: 06/19/18 14:12 Dose: 4 mg Oxycodone HCl (Oxycontin Extended Release Tab) 10 mg PO Q12 [facility] Stop: 06/23/18 22:01 Sodium Hypochlorite (Dakins Solution 0.25%) 0 ml TOP DAILY [facility] Last Admin: 06/20/18 11:14 Dose: Not Given Zolpidem Tartrate (Ambien) 5 mg PO HS PRN; Protocol PRN Reason: Insomnia Last Admin: 06/19/18 23:37 Dose: 5 mg - Labs Labs: 06/20/18 07:00 06/20/18 07:00 - Constitutional Appears: Non-toxic, No Acute Distress - Extremities Exam Additional comments: Vascular: DP and PT pulses non-palpable B/L. Temperature gradient warm to warm from proximal to distal. Cap refill < 3 sec to all remaining digits. Mild non- pitting edema noted to dorsum of right foot Ortho: R TMA. No pain on palpation present. Neuro: diminished protective sensation B/L, gross sensation intact Derm: RLE = Surgical site skin edges well coapted, no signs of dehiscence at this time. Plantar ulceration present with mixed fibrogranular base and moderate serosanguinous drainage present. - Neurological Exam Neurological Exam: Alert, Awake, Oriented x3 - Psychiatric Exam Psychiatric exam: Normal Affect, Normal Mood Assessment and Plan - Assessment and Plan (Free Text) Assessment: Patient seen and evaluated POD#4 R revisional TMA with closure (DOS 06/17/18) Plan: Patient seen and evaluated Discussed with attending, Dr. 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 Brian Hickey as outpatient Podiatry will continue to follow Local wound care orders for d/c to [facility]: - Advance packing daily until completely removed. Please apply betadine to surgical incision. Apply xeroform, dry sterile dressing, ABD, kerlix, and light luis to R surgical site. Continue to wear multi-podus boots at all times while in bed
--- NOTE | 2018-06-20 16:16 | PN ---
DATE: 06/20/2018 SUBJECTIVE: She is resting comfortably, sitting up in chair with lots of questions to me today. Her right foot is bandaged, status post surgery by Podiatry. She is comfortable, in pain, not so terrible, lots of questions about her bowels. She wants something to help her. I will give her something, Dulcolax tablet today. She is already on Colace. Also, she has end-stage renal disease on hemodialysis. She is morbidly obese, diabetes, right foot infection with very bad peripheral vascular disease, I am hoping it heals. She is on Ambien, Antivert, hydralazine, aspirin, Colace, Cozaar, daptomycin, insulin, metoprolol, Merrem, I put her back on oxycodone 10 and I added some Toradol IV, Xanax and Zofran. PHYSICAL EXAMINATION: VITAL SIGNS: She has a 97.8 temperature, 74 pulse, 136/64 blood pressure, 19 respiratory rate, 98% O2 sat on room air. HEAD: Atraumatic, normocephalic. HEART: Regular rate. LUNGS: Decreased breath sounds but clear. ABDOMEN: Superobese. Nontender. Positive bowel sounds. EXTREMITIES: The right foot is bandaged. She is status post TMA and bone removal, two surgeries. We are hoping that it will heal. She has a very bad peripheral disease. Dr. Kingsley Wood could not stent below the knee. We will hope that it heals up. LABORATORY DATA: She has a 6.1 white count, 8.9 hemoglobin, 29.5 hematocrit with 339 platelets. Sodium 135, potassium is 5.1, keep an eye on the potassium. BUN 31, creatinine 5.8, sugar is 110, calcium is 8.5, phosphorus 3.7, total bili is 0.4, AST is 39, ALT is 6, alk phos 137. Total protein is 7. RECOMMENDATIONS: She is being seen by Renal, Infectious Disease, Podiatry, Cardiology. When I get the word of the culture, then we will know what the antibiotics to put her on. We will get her to [facility], I am hoping that is where she came from, she wants to start physical therapy. She will need 4 to 6 weeks currently of daptomycin and meropenem. We will see what Paper Roll Machine Operator can find first. iNr Cox DO
[2018-06-20 22:01] VITALS: RESP 18
[2018-06-20] MEDS: oxyCODONE 10 mg ER Tab (oxyCONTIN) PO SCH (22:38)
[2018-06-21] MEDS: Insulin Lispro (humaLOG) LOW Coverage SC SCH ×4 (08:37→21:09)
--- NOTE | 2018-06-21 08:41 | OP ---
PROCEDURE DATE: 06/16/2018 SURGEON: Brian Hickey DPM CUT PRESS OPERATOR: Katy Gary, PGY-1 ANESTHESIA: IV sedation with local. PREOPERATIVE DIAGNOSIS: Right nonhealing ulceration. POSTOPERATIVE DIAGNOSIS: Right nonhealing ulceration. PROCEDURE: Revision of transmetatarsal amputation and large mid foot ulcer defect by excision of exposed tarsal and metatarsal bone with primary closure utilizing previous transmetatarsal amputation flap. INDICATIONS: The patient is a 67-year-old female with the above diagnosis. The patient has exhausted all conservative treatments at this time and now requires surgical intervention. The patient signed the consent after careful explanation of risks, benefits, complications and alternatives to the surgical procedure. No guarantees were given or implied. NPO status was confirmed prior to taking the patient to the operating room. PREPARATION: The patient was brought into the operating room and placed on the operating room table in the supine position. Time-out was performed for identification of the correct patient and procedure. After induction, the right foot was then prepped and draped in the normal sterile manner and the procedure began. No tourniquet was used during this procedure. DESCRIPTION OF PROCEDURE: Attention was directed to the right plantar foot, where an ulceration was noted measuring approximately 10 cm x 8 cm x 3 cm. The ulceration was noted to be composed of a mixed granular and fibrotic tissue with visible bone exposure. Mild serous drainage was noted to the wound bed. Mechanical debridement was performed with a curette and a #15 blade to remove all fibrotic and nonviable tissue from the wound margin. The incisions were then extended down to the level of exposed bone utilizing a bone clamp to stabilize the exposed tarsal and metatarsal bones. A sagittal saw was then utilized to resect any nonviable bone exposed. Next, using a sagittal saw, the distal aspect of the exposed metatarsal bone was resected and sent off the operating field to Pathology. At this time, 20 mL of 0.5% Marcaine plain and 1% lidocaine plain was injected in a posterior tibial artery block type fashion. Next, the surgical site was copiously flushed with sterile saline using a pulse lavage. The surgical site was then inspected to be clear of any remaining fibrotic tissue and a healthy granular bleeding base was appreciated. Next, utilizing the previous existing TMA flap, the surgical site was closed using 3-0 Vicryl and steve. At this time, two small ulcerations, that were unable to be closed primarily, were appreciated to the plantar aspect of the R foot which tunneled to each other. The area was packed with 1/2 inch plain packing. The surgical site was then dressed with Xeroform, 4 x 4 gauze and Kerlix. POSTOPERATIVE CONDITION: The patient tolerated the anesthesia and procedure well and was escorted to the recovery room with vital signs stable and neurovascular status intact to the right foot. The patient is to remain nonweightbearing to the right foot with the use of a surgical shoe and crutches or walker. The patient is to return to the floor and Podiatry will continue to follow the patient. Upon discharge, the patient will follow up with Dr. Hickey in the office. KATY LOPEZ Brian Hickey DPM [facility]
[2018-06-21 09:13] LABS: HEMOGLOBIN 8.9 g/dL (12.0-16.0); MEAN CELL VOLUME 80.6 fl (80.0-105.0); MEAN CORPUSCULAR HEMOGLOBIN 24.7 pg (25.0-35.0); MEAN CORPUSCULAR HGB CONC 30.6 g/dl (31.0-37.0); MEAN PLATELET VOLUME 8.9 fl (7.0-11.0); RBC 3.61 10^6/uL (3.5-6.1); RED CELL DISTRIBUTION WIDTH 20.6 % (11.5-14.5); WHITE BLOOD COUNT 6.3 10^3/uL (4.5-11.0)
[2018-06-21 09:45] LABS: ALB/GLOB RATIO 0.8 (1.1-1.8); ALT/SGPT < 6 U/L (7-56); AST/SGOT 56 U/L (14-36); BLOOD UREA NITROGEN 36 mg/dL (7-21); CALCIUM 8.8 mg/dL (8.4-10.5); GFR NON-AFRICAN AMERICAN 6
[2018-06-21] MEDS ORDERED: Doxercalciferol 4 mcg/2 ml Inj IV SCH (10:00)
--- NOTE | 2018-06-21 10:21 | CP.PCM.PN ---
<Newton Holman - Last Filed: 06/21/18 10:21> Subjective - Date & Time of Evaluation Date of Evaluation: 06/21/18 Time of Evaluation: 10:18 - Subjective Subjective: Nephrology Progress Note (Dr. Siegel's Service): Patient seen and assessed at bedside in inpatient dialysis. No acute events overnight. Patient reports that she is feeling subjectively well and denies any complaints. Further 12 point ROS reviewed and unremarkable at this time. Objective - Vital Signs/Intake and Output Vital Signs (last 24 hours): Temp Pulse Resp BP Pulse Ox 98.3 F 70 18 136/70 96 06/21/18 06:00 06/21/18 06:00 06/21/18 06:00 06/21/18 06:00 06/21/18 06:00 Intake and Output: 06/21/18 06/21/18 06:59 18:59 Intake Total 560 Output Total 0 Balance 560 - Medications Medications: Current Medications Acetaminophen (Tylenol 325mg Tab) 650 mg PO Q4H PRN PRN Reason: Pain, Mild (1-3) Last Admin: 06/21/18 08:16 Dose: 650 mg Alprazolam (Xanax) 0.25 mg PO TID PRN; Protocol PRN Reason: Anxiety Stop: 06/22/18 18:01 Last Admin: 06/15/18 18:14 Dose: 0.25 mg Aspirin (Aspirin Chewable) 81 mg PO DAILY [facility] Last Admin: 06/20/18 10:40 Dose: 81 mg Cinacalcet (Sensipar) 30 mg PO DAILY [facility] Clopidogrel Bisulfate (Plavix) 75 mg PO DAILY [facility] Last Admin: 06/20/18 10:40 Dose: 75 mg Docusate Sodium (Colace) 100 mg PO DAILY [facility] Last Admin: 06/20/18 10:39 Dose: 100 mg Doxercalciferol (Hectorol) 2 mcg IV MWF [facility] Hydralazine HCl (Apresoline) 25 mg PO TID [facility] Last Admin: 06/19/18 17:40 Dose: 25 mg Daptomycin 620 mg/ Sodium (Chloride) 100 mls @ 200 mls/hr IV Q48H [facility]; Protocol Stop: 07/15/18 13:01 Last Admin: 06/19/18 14:42 Dose: 200 mls/hr Meropenem 250 mg/ Sodium (Chloride) 100 mls @ 100 mls/hr IVPB Q12H [facility]; Protocol Stop: 07/15/18 11:01 Last Admin: 06/20/18 22:38 Dose: 100 mls/hr Insulin Human Lispro (Humalog Low) 0 units SC ACHS [facility]; Protocol Last Admin: 06/21/18 08:37 Dose: Not Given Ketorolac Tromethamine (Toradol) 30 mg IVP Q6H PRN PRN Reason: Pain, moderate (4-7) Losartan Potassium (Cozaar) 25 mg PO DAILY [facility] Last Admin: 06/20/18 10:41 Dose: 25 mg Meclizine HCl (Antivert) 12.5 mg PO TID PRN PRN Reason: Dizziness Last Admin: 06/17/18 10:41 Dose: 12.5 mg Metoclopramide HCl (Reglan) 5 mg PO Q6H PRN PRN Reason: Nausea/Vomiting Last Admin: 06/14/18 22:09 Dose: 5 mg Metoprolol Tartrate (Lopressor) 25 mg PO BID [facility] Last Admin: 06/20/18 18:04 Dose: 25 mg Ondansetron HCl (Zofran Inj) 4 mg IVP Q4 PRN PRN Reason: Nausea/Vomiting Last Admin: 06/20/18 17:06 Dose: 4 mg Oxycodone HCl (Oxycontin Extended Release Tab) 10 mg PO Q12 [facility] Stop: 06/23/18 22:01 Last Admin: 06/20/18 22:38 Dose: 10 mg Sodium Hypochlorite (Dakins Solution 0.25%) 0 ml TOP DAILY [facility] Last Admin: 06/20/18 11:14 Dose: Not Given Zolpidem Tartrate (Ambien) 5 mg PO HS PRN; Protocol PRN Reason: Insomnia Last Admin: 06/20/18 21:36 Dose: 5 mg - Labs Labs: 06/21/18 08:45 06/21/18 08:45 - Constitutional Appears: Non-toxic, No Acute Distress - Head Exam Head Exam: ATRAUMATIC, NORMOCEPHALIC - Eye Exam Eye Exam: EOMI, Normal appearance, PERRL - ENT Exam ENT Exam: Mucous Membranes Moist - Neck Exam Neck Exam: Full ROM - Respiratory Exam Respiratory Exam: Clear to Ausculation Bilateral, NORMAL BREATHING PATTERN. absent: Respiratory Distress - Cardiovascular Exam Cardiovascular Exam: REGULAR RHYTHM, RRR - GI/Abdominal Exam GI & Abdominal Exam: Soft, Normal Bowel Sounds. absent: Tenderness - Extremities Exam Extremities Exam: Pedal Edema (Trace pitting edema of b/l lower extremity) - Neurological Exam Neurological Exam: Alert, Awake, Oriented x3 - Psychiatric Exam Psychiatric exam: Normal Affect, Normal Mood - Skin Skin Exam: Dry, Intact, Warm Assessment and Plan - Assessment and Plan (Free Text) Assessment: 67 year old AA female with a past medical history significant for ESRD on HD, HTN, HLD, DM2 and anemia who presented with RLE infection. Plan: 1. ESRD on HD -HD today with 3.0L UF -Mild hyperkalemia noted; Further electrolytes -Continue to avoid nephrotoxic agents and renally dose medications as indicated -Continue to monitor BUN, creatinine and eGFR with daily CMP's 2. Hypertensive CKD -Currently controlled -Continue current medications as ordered 3. Anemia in CKD -Stable s/p two doses of Aranesp and one unit of pRBC's -Hemoglobin stable but below goal -Continue intermittent Aranesp with HD -Continue to monitor with daily CBC's 4. CKD Mineral Bone Disease -Repeat iPTH within goal range so we will hold home Sensipar indefinitely at this time -Continue Hectorol MWF with HD 5. Diastolic CHF -Volume status stable currently -Continue to target adequate UF on HD 6. Pulmonary Hypertension -Volume/Respiratory status stable currently -Continue to target adequate UF on HD Disposition: Patient pending [facility] placement for IV antibiotics and physical rehabilitation. Patient seen and case discussed with attending, Dr. Siegel. Newton Holman PGY2 <Collin Siegel - Last Filed: 06/22/18 01:21> Objective - Vital Signs/Intake and Output Vital Signs (last 24 hours): Temp Pulse Resp BP Pulse Ox 99.5 F 68 18 117/53 L 97 06/21/18 14:00 06/21/18 14:00 06/21/18 14:00 06/21/18 17:07 06/21/18 14:00 Intake and Output: 06/21/18 06/22/18 18:59 06:59 Intake Total 840 480 Balance 840 480 - Medications Medications: Current Medications Acetaminophen (Tylenol 325mg Tab) 650 mg PO Q4H PRN PRN Reason: Pain, Mild (1-3) Last Admin: 06/21/18 08:16 Dose: 650 mg Alprazolam (Xanax) 0.25 mg PO TID PRN; Protocol PRN Reason: Anxiety Stop: 06/22/18 18:01 Last Admin: 06/15/18 18:14 Dose: 0.25 mg Aspirin (Aspirin Chewable) 81 mg PO DAILY [facility] Last Admin: 06/21/18 11:00 Dose: Not Given Cinacalcet (Sensipar) 30 mg PO DAILY [facility] Clopidogrel Bisulfate (Plavix) 75 mg PO DAILY [facility] Last Admin: 06/21/18 12:39 Dose: Not Given Docusate Sodium (Colace) 100 mg PO DAILY [facility] Last Admin: 06/21/18 11:00 Dose: Not Given Doxercalciferol (Hectorol) 2 mcg IV MWF [facility] Last Admin: 06/21/18 10:16 Dose: 2 mcg Hydralazine HCl (Apresoline) 25 mg PO TID [facility] Last Admin: 06/19/18 17:40 Dose: 25 mg Cefepime HCl (Maxipime 1gm) 1 gm in 100 mls @ 100 mls/hr IVPB Q24H [facility]; Protocol Stop: 07/19/18 17:01 Last Admin: 06/21/18 17:24 Dose: 100 mls/hr Insulin Human Lispro (Humalog Low) 0 units SC ACHS [facility]; Protocol Last Admin: 06/21/18 21:09 Dose: Not Given Ketorolac Tromethamine (Toradol) 30 mg IVP Q6H PRN PRN Reason: Pain, moderate (4-7) Last Admin: 06/21/18 17:33 Dose: 30 mg Linezolid (Zyvox) 600 mg PO BID [facility]; Protocol Stop: 07/19/18 18:01 Last Admin: 06/21/18 17:34 Dose: Not Given Losartan Potassium (Cozaar) 25 mg PO DAILY [facility] Last Admin: 06/21/18 11:00 Dose: Not Given Meclizine HCl (Antivert) 12.5 mg PO TID PRN PRN Reason: Dizziness Last Admin: 06/17/18 10:41 Dose: 12.5 mg Metoclopramide HCl (Reglan) 5 mg PO Q6H PRN PRN Reason: Nausea/Vomiting Last Admin: 06/14/18 22:09 Dose: 5 mg Metoprolol Tartrate (Lopressor) 25 mg PO BID [facility] Last Admin: 06/21/18 17:07 Dose: Not Given Ondansetron HCl (Zofran Inj) 4 mg IVP Q4 PRN PRN Reason: Nausea/Vomiting Last Admin: 06/21/18 23:32 Dose: 4 mg Oxycodone HCl (Oxycontin Extended Release Tab) 10 mg PO Q12 [facility] Stop: 06/23/18 22:01 Last Admin: 06/21/18 21:34 Dose: 10 mg Sodium Hypochlorite (Dakins Solution 0.25%) 0 ml TOP DAILY [facility] Last Admin: 06/21/18 18:44 Dose: Not Given Zolpidem Tartrate (Ambien) 5 mg PO HS PRN; Protocol PRN Reason: Insomnia Last Admin: 06/21/18 21:34 Dose: 5 mg - Labs Labs: 06/21/18 08:45 06/21/18 08:45 Assessment and Plan (1) ESRD (end stage renal disease) on dialysis Status: Chronic (2) Hypertensive CKD, ESRD on dialysis Status: Chronic (3) Anemia in CKD (chronic kidney disease) Status: Acute (4) CHF (congestive heart failure) Status: Chronic Attending/Attestation - Attestation I have personally seen and examined this patient.: Yes I have fully participated in the care of the patient.: Yes I have reviewed all pertinent clinical information, including history, physical exam and plan: Yes Notes (Text): Providing nephrology coverage for Dr. Uribe: Patient seen and examined; I agree with the resident's note as above with the following additions/edits: 67 yo F w/ pmh of htn, PAD, CAD s/p recent stent, CHF w/ diastolic dysfunction/pulm edema, and ESRD on HD, admitted with OM of L TMA wound site; Patient seen on HD, tolerating UF well with 3L goal; mild hyperkalemia seen pre- HD; ID recommending 4-6 weeks of IV antibiotics with cefepime and PO linezolid for OM; will need PICC line which is relatively contraindicated in HD patient, and especially with patient having exhausted multiple HD access sites; discussed with primary apprentice electrician today; left arm was being planned for possible AVG and should be preserved; if PICC line needed, should consider placing only on R arm (although this may be challenging as patient has defunct HeRO graft on this side); Relatively stable CHF status; Anemia of CKD, below goal but stable; dosed aranesp late last week; CKD mineral bone disorder, with PTH at goal off sensipar, will continue to hold indefinitely; continuing with hectorol 2 mcg on HD; Hypertensive ESRD, BP controlled off hydralazine, will continue to hold; continue metoprolol and losartan.
[2018-06-21] MEDS: oxyCODONE 10 mg ER Tab (oxyCONTIN) PO SCH ×2 (11:00→21:34)
--- NOTE | 2018-06-21 11:13 | PN ---
DATE: 06/21/2018 SUBJECTIVE: She is sitting up in bed, feeling well. She tells me the right foot feels well, status post bony amputation. . MEDICATIONS: , Ambien, Antivert, Apresoline, aspirin, Colace, Cozaar, Dakin's solution, daptomycin, Hectorol, insulin, Lopressor, Merrem, OxyContin, Plavix, Reglan, Sensipar, Toradol, Tylenol, Xanax and Zofran. She wants to go back to [facility] for physical therapy. PHYSICAL EXAMINATION: VITAL SIGNS: She has a 98.2 temperature, 72 pulse, 126/47 blood pressure, 18 respiratory rate, 96% O2 sat on room air. HEENT: Head; atraumatic, normocephalic. HEART: Regular rate. LUNGS: Decreased breath sounds, but clear. ABDOMEN: Soft, obese, nontender. EXTREMITIES: Foot is wrapped. LABORATORY DATA: She has a 6.1 white count, 9.8 hemoglobin, 29.5 hematocrit with 339 platelets. She has a 135 sodium; potassium 5.1, yesterday; BUN 31; creatinine 5.8. She is on dialysis. Last blood sugar 94, calcium is 8.5, phosphorus 3.7, total bili is 0.4, AST is 39, ALT is 65, alk phos 137, total protein 7. Waiting for this mornings labs . ASSESSMENT AND PLAN: I am hoping she could be transferred to [facility] as per Infectious Disease and Podiatry. As far as Dr. 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 Recommend CBC, SMA-18, sed rate, C-reactive protein and CPK weekly. Daptomycin every 48 hours, because of renal issue, does give Merrem is also changed because of renal issues. 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 Nir Cox DO [facility]
--- NOTE | 2018-06-21 16:24 | CP.PCM.PN ---
Subjective - Date & Time of Evaluation Date of Evaluation: 06/21/18 Time of Evaluation: 16:24 - Subjective Subjective: Podiatry progress note - Dr. Brian Hickey 67F seen and evaluated in dialysis POD#5 R revisional TMA. Patient resting comfortably, NAD. No acute events overnight. No pain to right foot today; patient states she has remained NWB with her RLE elevated. Denies n/v/f/d/c/sob/jeffries/cp. Objective - Vital Signs/Intake and Output Vital Signs (last 24 hours): Temp Pulse Resp BP Pulse Ox 99.5 F 68 18 105/52 L 97 06/21/18 14:00 06/21/18 14:00 06/21/18 14:00 06/21/18 14:00 06/21/18 14:00 Intake and Output: 06/21/18 06/21/18 06:59 18:59 Intake Total 560 840 Output Total 0 Balance 560 840 - Medications Medications: Current Medications Acetaminophen (Tylenol 325mg Tab) 650 mg PO Q4H PRN PRN Reason: Pain, Mild (1-3) Last Admin: 06/21/18 08:16 Dose: 650 mg Alprazolam (Xanax) 0.25 mg PO TID PRN; Protocol PRN Reason: Anxiety Stop: 06/22/18 18:01 Last Admin: 06/15/18 18:14 Dose: 0.25 mg Aspirin (Aspirin Chewable) 81 mg PO DAILY [facility] Last Admin: 06/21/18 11:00 Dose: Not Given Cinacalcet (Sensipar) 30 mg PO DAILY [facility] Clopidogrel Bisulfate (Plavix) 75 mg PO DAILY [facility] Last Admin: 06/21/18 12:39 Dose: Not Given Docusate Sodium (Colace) 100 mg PO DAILY [facility] Last Admin: 06/21/18 11:00 Dose: Not Given Doxercalciferol (Hectorol) 2 mcg IV MWF [facility] Last Admin: 06/21/18 10:16 Dose: 2 mcg Hydralazine HCl (Apresoline) 25 mg PO TID [facility] Last Admin: 06/19/18 17:40 Dose: 25 mg Daptomycin 620 mg/ Sodium (Chloride) 100 mls @ 200 mls/hr IV Q48H [facility]; Protocol Stop: 07/15/18 13:01 Last Admin: 06/19/18 14:42 Dose: 200 mls/hr Meropenem 250 mg/ Sodium (Chloride) 100 mls @ 100 mls/hr IVPB Q12H [facility]; Protocol Stop: 07/15/18 11:01 Last Admin: 06/21/18 14:52 Dose: 100 mls/hr Insulin Human Lispro (Humalog Low) 0 units SC ACHS [facility]; Protocol Last Admin: 06/21/18 12:35 Dose: Not Given Ketorolac Tromethamine (Toradol) 30 mg IVP Q6H PRN PRN Reason: Pain, moderate (4-7) Losartan Potassium (Cozaar) 25 mg PO DAILY [facility] Last Admin: 06/21/18 11:00 Dose: Not Given Meclizine HCl (Antivert) 12.5 mg PO TID PRN PRN Reason: Dizziness Last Admin: 06/17/18 10:41 Dose: 12.5 mg Metoclopramide HCl (Reglan) 5 mg PO Q6H PRN PRN Reason: Nausea/Vomiting Last Admin: 06/14/18 22:09 Dose: 5 mg Metoprolol Tartrate (Lopressor) 25 mg PO BID [facility] Last Admin: 06/21/18 11:00 Dose: Not Given Ondansetron HCl (Zofran Inj) 4 mg IVP Q4 PRN PRN Reason: Nausea/Vomiting Last Admin: 06/20/18 17:06 Dose: 4 mg Oxycodone HCl (Oxycontin Extended Release Tab) 10 mg PO Q12 [facility] Stop: 06/23/18 22:01 Last Admin: 06/21/18 11:00 Dose: Not Given Sodium Hypochlorite (Dakins Solution 0.25%) 0 ml TOP DAILY [facility] Last Admin: 06/20/18 11:14 Dose: Not Given Zolpidem Tartrate (Ambien) 5 mg PO HS PRN; Protocol PRN Reason: Insomnia Last Admin: 06/20/18 21:36 Dose: 5 mg - Labs Labs: 06/21/18 08:45 06/21/18 08:45 - Constitutional Appears: Non-toxic - Head Exam Head Exam: ATRAUMATIC - Extremities Exam Additional comments: Vascular: DP and PT pulses non-palpable B/L. Temperature gradient warm to warm from proximal to distal. Cap refill < 3 sec to all remaining digits. Mild non- pitting edema noted to dorsum of right foot Ortho: R TMA. No pain on palpation present. Neuro: diminished protective sensation B/L, gross sensation intact Derm: RLE = Surgical site skin edges well coapted, no signs of dehiscence at this time. Plantar ulceration present with mixed fibrogranular base and moderate serosanguinous drainage present. - Neurological Exam Neurological Exam: Alert, Awake, Oriented x3 - Psychiatric Exam Psychiatric exam: Normal Affect Assessment and Plan - Assessment and Plan (Free Text) Assessment: 67F POD#5 R revisional TMA with closure (DOS 06/17/18) Plan: Patient seen and evaluated Discussed with attending, Dr. 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 Brian Hickey as outpatient Podiatry will continue to follow Local wound care orders for d/c to [facility]: - Advance packing daily until completely removed. Please apply betadine to surgical incision. Apply xeroform, dry sterile dressing, ABD, kerlix, and light luis to R surgical site. Continue to wear multi-podus boots at all times while in bed
[2018-06-21] MEDS ORDERED: Cefepime 1gm in NS 100ml 1 GM/100 ML BAG IVPB SCH (17:00)
[2018-06-21] MEDS: Dakin's Topical 0.25%-Half Strength (480 ml) TOP SCH (18:44)
--- NOTE | 2018-06-21 22:51 | PN ---
DATE: 06/21/2018 SUBJECTIVE: The patient is in bed, in no acute distress, nontoxic. PHYSICAL EXAMINATION: VITAL SIGNS: Temperature is 99, blood pressure is 105/50, and respiratory rate of 18. HEENT: Unremarkable. NECK: Supple. LUNGS: Have decreased breath sounds. HEART: Normal S1 and S2. ABDOMEN: Soft. LABORATORY DATA: Reveals a white count of 6.3, BUN of 36, and creatinine of 6.6. ASSESSMENT AND PLAN: This is a 67-year-old female with morbid obesity with a body mass index of 42, history of transmetatarsal amputation, diabetes, renal failure, on hemodialysis; chronic ulcer status post operating room wound debridement, biopsy consistent with osteomyelitis and will need 4 to 6 weeks of antibiotics, daptomycin and meropenem is recommended. Unable to go to a chronic subacute care with daptomycin, maybe it will be Zyvox and then use of cefepime as it is Pseudomonas sensitive. The patient had debridement and cleaning. I would recommend CBC, SMA-18, sed rate, and C-reactive protein. Haresh Cordon MD
[2018-06-22] MEDS: Insulin Lispro (humaLOG) LOW Coverage SC SCH ×3 (08:00→16:34)
[2018-06-22] MEDS ORDERED: Lidocaine PF 2% (5 ml) Inj (For Cardiac Arrhy) ONE (09:32)
[2018-06-22] MEDS: oxyCODONE 10 mg ER Tab (oxyCONTIN) PO SCH (10:10)
--- NOTE | 2018-06-22 10:28 | PCM.SURG1 ---
Surgeon's Initial Post Op Note - Surgeon's Notes Surgeon: Mitchell Muñiz MD Health Services Information Specialist: NONE Type of Anesthesia: Local Pre-Operative Diagnosis: Infection Operative Findings: US showed patent right brachial vein. HERO catheter. Post-Operative Diagnosis: Infection Operation Performed: Single lumen picc placement right arm, 37 cm. Tip is in the SVC. Specimen/Specimens Removed: NONE Estimated Blood Loss: EBL {In ML}: 2 Blood Products Given: N/A Drains Used: No Drains Post-Op Condition: Fair Date of Surgery/Procedure: 06/22/18 Time of Surgery/Procedure: 10:25
--- NOTE | 2018-06-22 10:43 | PN ---
DATE: 06/22/2018 SUBJECTIVE: She is resting comfortably in bed this morning. She is waiting for a PICC line to be placed with Dr. Kingsley Wood, they cannot placed it yesterday, the midline was unable to be done either, so now Dr. Kingsley Wood was consulted for the PICC line in. MEDICATIONS: She is on Ambien, Antivert, Apresoline, aspirin, Colace, Cozaar, Hectorol, insulin,metoprolol, cefepime, oxycodone, Plavix, Reglan, Sensipar, Toradol, Tylenol, Xanax, Zofran and Zyvox. PHYSICAL EXAMINATION: GENERAL: She is comfortable on bed. No pain. Asking lots of questions this morning, eating well. The right foot is bandaged. VITAL SIGNS: She has a 98.3 temperature, 81 pulse, 124/68 blood pressure, 18 respiratory rate, 96% O2 sat on room air. HEENT: Head is atraumatic, normocephalic. HEART: Regular rate. LUNGS: Decreased breath sounds, but clear. ABDOMEN: Soft, obese and nontender. EXTREMITIES: No edema. The right foot is bandaged. She is not supposed to weight bear at this time. LABORATORY DATA: She has a 6.3 white count, 8.9 hemoglobin, 29.1 hematocrit with 376 platelets. Sodium 138; potassium 5.2, I will give her Kayexalate; BUN 36, creatinine 6.6 on dialysis. Last blood sugar is 107, calcium is 8.8, total bilirubin is 0.3, AST 66, ALT , alk phos 157, total protein is 7. ASSESSMENT AND PLAN: She is being seen by Infectious Disease, Renal, Podiatry. I am trying to get a PICC line in then transferred to [facility] for the 4 to 6 weeks for the antibiotics. She is status post transmetatarsal, amputation and bone removal, osteomyelitis, 4 to 6 weeks of antibiotics as per Infectious Disease and hopefully we can get it to [facility] once the PICC line is placed. I will follow her there. Nir Cox DO [facility] # [id number]
[2018-06-22] MEDS: Dakin's Topical 0.25%-Half Strength (480 ml) TOP SCH (11:38)
--- NOTE | 2018-06-22 13:11 | VASCULAR ---
PROCEDURE: Date of procedure: 06/22/2018 Procedure: 1. Placement of a right arm PICC with ultrasound and fluoroscopic guidance, CPT 67425 2. PICC tip confirmation with spot radiograph and is in the superior vena cava Medications: 4cc 1 percent lidocaine Total Fluoro time: 4 seconds Radiation: 2 mGy EBL: 2 cc HISTORY: Infection requiring long-term IV antibiotics, ESRD TECHNIQUE: Following informed consent and procedure time-out, the patient was placed supine on the interventional table and the right arm prepped and draped in the usual sterile fashion. Ultrasound showed a patent and compressible right brachial vein. After the skin was anesthetized with lidocaine, the brachial vein was accessed with micro micropuncture technique using ultrasound guidance. A guidewire was then advanced under fluoroscopic guidance into the superior vena cava. An image documenting ultrasound guidance for vascular access was permanently saved. The length of the single-lumen 4 Lebanese PICC was trimmed to 37 centimeters and advanced through a peel-away sheath. The PICC was position with tip of PICC confirm a spot radiograph the superior vena cava. The PICC was secured to the patient's skin. The PICC was flushed. A biopatch and sterile dressing was applied. IMPRESSION: Placement of a single-lumen 4 Lebanese PICC trimmed to 37 centimeters via right brachial vein. The tip of the PICC is confirmed with spot radiograph and is in the superior vena cava.
--- NOTE | 2018-06-22 14:14 | PN ---
DATE: 06/22/2018 SUBJECTIVE: The patient is in bed, in no acute distress, nontoxic. OBJECTIVE: VITAL SIGNS: On exam, temperature is 98, blood pressure is 120/60, respiratory rate 18, heart rate of 81. HEENT: Unremarkable. NECK: Supple. LUNGS: Have decreased breath sounds. HEART: Normal S1 and S2. ABDOMEN: Soft. LABORATORY EXAMINATION: Reveals a white count of 6.3, hemoglobin of 8, platelets of 376. BUN of 36, creatinine of 6.6. ASSESSMENT AND PLAN: This is a 67-year-old morbidly obese female with a body mass index of 42, history of transmetatarsal amputation, diabetes, renal failure on dialysis, chronic ulcer, status post debridement and closure of the wound consistent with osteomyelitis, will need 4-6 weeks with the patient has osteomyelitis of the stump with vancomycin-resistant Enterococcus and Pseudomonas. We will treat with Zyvox and cefepime as ordered, 4-6 weeks of antibiotics with weekly CBC, SMA-18, sed rate, C-reactive protein. Haresh Cordon MD
[2018-06-22 14:20] VITALS: BP 126/44; PULSE 76; TEMP 98.2; O2SAT 100
--- NOTE | 2018-06-22 18:57 | CP.PCM.PN ---
Objective - Vital Signs/Intake and Output Vital Signs (last 24 hours): Temp Pulse Resp BP Pulse Ox 98.2 F 76 18 126/44 L 100 06/22/18 14:20 06/22/18 14:20 06/22/18 14:20 06/22/18 14:20 06/22/18 14:20 Intake and Output: 06/22/18 06/22/18 06:59 18:59 Intake Total 480 360 Balance 480 360 - Labs Labs: 06/21/18 08:45 06/21/18 08:45 Assessment and Plan (1) ESRD (end stage renal disease) on dialysis Status: Chronic (2) Hypertensive CKD, ESRD on dialysis Status: Chronic (3) Anemia in CKD (chronic kidney disease) Status: Acute (4) CHF (congestive heart failure) Status: Chronic
== END 2018-06-22 18:04 | DRG 628 ==
LOC: ED 16:14 → ERH 18:20 → 5RNO 23:37 → 2RSO 06-11 21:27 → 5RNO 06-12 03:19 → 2RNO 06-12 15:01 → 5RSO 06-18 19:13
PROVIDERS: ADMIT Family Medicine; ATTEND Family Medicine
PROC: 3E04328 Introduction of Oxazolidinones into Central Vein, Percutaneous Approach (ICD-10-PCS; 2018-06-10)
PROC: B4101ZZ Fluoroscopy of Abdominal Aorta using Low Osmolar Contrast (ICD-10-PCS; 2018-06-11)
PROC: B41F1ZZ Fluoroscopy of Right Lower Extremity Arteries using Low Osmolar Contrast (ICD-10-PCS; 2018-06-11)
PROC: 5A1D70Z Performance of Urinary Filtration, Intermittent, Less than 6 Hours Per Day (ICD-10-PCS; 2018-06-14)
PROC: 5A1D70Z Performance of Urinary Filtration, Intermittent, Less than 6 Hours Per Day (ICD-10-PCS; 2018-06-16)
PROC: 0QBL0ZZ Excision of Right Tarsal, Open Approach (ICD-10-PCS; principal; 2018-06-16 13:30)
PROC: 5A1D70Z Performance of Urinary Filtration, Intermittent, Less than 6 Hours Per Day (ICD-10-PCS; 2018-06-18)
PROC: 5A1D70Z Performance of Urinary Filtration, Intermittent, Less than 6 Hours Per Day (ICD-10-PCS; 2018-06-21)
PROC: 02HV33Z Insertion of Infusion Device into Superior Vena Cava, Percutaneous Approach (ICD-10-PCS; 2018-06-22)
PROC: B518ZZA Fluoroscopy of Superior Vena Cava, Guidance (ICD-10-PCS; 2018-06-22)
PROC: B54MZZA Ultrasonography of Right Upper Extremity Veins, Guidance (ICD-10-PCS; 2018-06-22)
DX: E11.69 Type 2 diabetes mellitus with other specified complication (principal); I50.43 Acute on chronic combined systolic (congestive) and diastolic (congestive) heart failure; I21.4 Non-ST elevation (NSTEMI) myocardial infarction; M86.171 Other acute osteomyelitis, right ankle and foot; L97.516 Non-pressure chronic ulcer of other part of right foot with bone involvement without evidence of necrosis; I12.0 Hypertensive chronic kidney disease with stage 5 chronic kidney disease or end stage renal disease; Z68.41 Body mass index [BMI] 40.0-44.9, adult; L97.429 Non-pressure chronic ulcer of left heel and midfoot with unspecified severity; I13.2 Hypertensive heart and chronic kidney disease with heart failure and with stage 5 chronic kidney disease, or end stage renal disease; N18.6 End stage renal disease; Y84.8 Other medical procedures as the cause of abnormal reaction of the patient, or of later complication, without mention of misadventure at the time of the procedure; V00-Y99 External causes of morbidity; E11.51 Type 2 diabetes mellitus with diabetic peripheral angiopathy without gangrene; Z99.2 Dependence on renal dialysis; Z89.421 Acquired absence of other right toe(s); E11.22 Type 2 diabetes mellitus with diabetic chronic kidney disease; E78.5 Hyperlipidemia, unspecified; R06.02 Shortness of breath; E11.319 Type 2 diabetes mellitus with unspecified diabetic retinopathy without macular edema; Z79.4 Long term (current) use of insulin; D63.1 Anemia in chronic kidney disease; E66.01 Morbid (severe) obesity due to excess calories; Z89.431 Acquired absence of right foot; I27.20 Pulmonary hypertension, unspecified; E11.21 Type 2 diabetes mellitus with diabetic nephropathy; E11.36 Type 2 diabetes mellitus with diabetic cataract; E83.51 Hypocalcemia; E87.5 Hyperkalemia; G89.29 Other chronic pain; I25.10 Atherosclerotic heart disease of native coronary artery without angina pectoris; I71.4 Abdominal aortic aneurysm, without rupture; K59.00 Constipation, unspecified; L08.9 Local infection of the skin and subcutaneous tissue, unspecified; Z87.442 Personal history of urinary calculi; Z87.891 Personal history of nicotine dependence; Z90.49 Acquired absence of other specified parts of digestive tract; Z90.710 Acquired absence of both cervix and uterus; Z95.5 Presence of coronary angioplasty implant and graft